=== PATIENT | female | born 1945 | race Caucasian/White ===

== ENCOUNTER → 2016-10-30 | Outpatient (CLI) | payer BC ==
[~2016-10-30] MED LIST: ATEN-173 PO; CALC600T9 PO; CLL250 PO; HYDR0.5T PO; PRED-301 PO; SYN125 PO; [UNRECOGNIZED DRUG - CODE] PO
--- NOTE | 2016-10-30 14:33 | MAMMOGRAPHY REPORT ---
BILATERAL DIGITAL SCREENING MAMMOGRAM WITH CAD: 10/30/2016 CLINICAL HISTORY: Routine screening. Patient has no complaints. TECHNIQUE: Current study was also evaluated with a Computer Aided Detection (CAD) system. Bilatera l CC and MLO views were obtained. COMPARISON: Comparison is made to exams dated: 10/28/2015 mammogram, 10/20/2013 mammogram, 10/24/2014 m ammogram, 10/19/2012 mammogram, 10/16/2011 mammogram, and 10/14/2010 mammogram - [facility]. BREAST COMPOSITION: There are scattered areas of fibroglandular density in both breasts. FINDINGS: No suspicious masses, calcifications, or areas of architectural distortion are noted in e ither breast. There has been no significant interval change compared to prior exams. Scattered bilat eral benign-appearing calcifications are not significantly changed. IMPRESSION: ACR BI-RADS CATEGORY 2: BENIGN There is no mammographic evidence of malignancy. A 1 year screening mammogram is recommended. The p atient will receive written notification of the results. Approximately 10% of breast cancers are not detected with mammography. A negative mammographic repor t should not delay biopsy if a clinically suggestive mass is present. Sabrina Edmondson M.D. /:10/30/2016 11:56:59 Equipment Maint Tech: Kassandra MOJICA(R)(M), [facility] letter sent: Normal 1/2 BI-RADS Code: ACR BI-RADS Category 2: Benign
== END | disposition home or self-care (01) ==
LOC: C.MAMM 08:42
PROVIDERS: ATTEND Internal Medicine
DX: Z12.31 Encounter for screening mammogram for malignant neoplasm of breast (principal)

== ENCOUNTER → 2016-12-01 | Outpatient (CLI) | payer BC ==
[2016-12-01 10:36] LABS: BASO % 0.5 %; BASO ABS # 0.04 K/uL (0-0.2); COMPLETE YES; EOS % 1.6 %; HEMATOCRIT 38.4 % (37-47); IG% 0.2 %; LYMPH % 39.1 %; LYMPH ABS # 3.24 K/uL (1.2-3.4); MEAN CELL VOLUME 98.7 fL (80-100); MEAN CORPUSCULAR HEMOGLOBIN 29.6 pg (25-34); MEAN CORPUSCULAR HGB CONC 29.9 g/dl (32-36); MEAN PLATELET VOLUME 11.1 fL (7.4-10.4); MONO % 8.4 %; NEUT % 50.2 %; PLATELET COUNT 344 K/uL (130-400); RED BLOOD COUNT 3.89 M/uL (4.2-5.4); WHITE BLOOD COUNT 8.29 K/uL (4.8-10.8)
[2016-12-01 10:47] LABS: URINE APPEARANCE CLEAR (CLEAR); URINE BILIRUBIN NEG (NEG); URINE COLOR YELLOW; URINE EPITHELIAL CELL AUTO 20-30 /lpf (0-5); URINE NITRITE NEG (NEG); URINE SPECIFIC GRAVITY 1.016 (1.000-1.030); UROBILINOGEN NEG (NEG)
[2016-12-01 10:54] LABS: MANUAL MICROSCOPIC REQUIRED? NO; REVIEW REQ? NO
[2016-12-01 11:02] LABS: ESTIMATED AVERAGE GLUCOSE 120 mg/dl; HA1C FLAG Normal (Normal)
[2016-12-01 11:12] LABS: BLOOD UREA NITROGEN 21 mg/dl (7-18); BUN/CREATININE RATIO 15.9 (10-20); CALCIUM 8.9 mg/dl (8.5-10.1); CARBON DIOXIDE 30 mmol/L (21-32); CHLORIDE 104 mmol/L (98-107); GLUCOSE 92 mg/dl (70-99); POTASSIUM 3.9 mmol/L (3.5-5.1); SODIUM 141 mmol/L (136-145)
[2016-12-01 11:23] LABS: CHOLESTEROL 224 mg/dl (0-200); CHOLESTEROL/HDL RATIO 2.8; HDL CHOLESTEROL 80 mg/dl; LDL CHOLESTEROL CALCULATED 121 mg/dl; TRIGLYCERIDES 116 mg/dl (0-150); VERY LOW DENSITY LIPOPROT CALC 23 mg/dl
--- NOTE | 2016-12-07 13:58 | CODING QUERY MEDICAL NECESSITY ---
SUPPORTING DIAGNOSIS NEEDED A supporting diagnosis is required for the test/procedure performed on this patient in order for us to be reimbursed by the patient's insurance. Please provide a supporting diagnosis for the following test/procedure listed below next to the test name along with your signature. *If there is no additional diagnosis for this patient that would support the following test/procedure please document that below next to the test/procedure. Test(s)/Procedure(s) that require a supporting diagnosis: DOS 12/01 * Hba1c DIAGNOSIS: Provider Signature: Date: Thank you Ewa Suh [facility] Information Management Once completed, please kindly fax back to [phone] For questions please call [phone]
== END | disposition home or self-care (01) ==
LOC: C.LABBC 08:14
PROVIDERS: ATTEND Internal Medicine
DX: I10 Essential (primary) hypertension (principal); Z13.1 Encounter for screening for diabetes mellitus

== ENCOUNTER → 2017-06-04 | Outpatient (CLI) | payer BC ==
[2017-06-04 10:15] LABS: BASO % 0.6 %; BASO ABS # 0.04 K/uL (0-0.2); COMPLETE YES; EOS % 2.2 %; HEMATOCRIT 36.3 % (37-47); IG% 0.3 %; LYMPH % 33.6 %; LYMPH ABS # 2.29 K/uL (1.2-3.4); MEAN CELL VOLUME 97.1 fL (80-100); MEAN PLATELET VOLUME 11.1 fL (7.4-10.4); MONO % 9.5 %; NEUT % 53.8 %; PLATELET COUNT 277 K/uL (130-400); RED BLOOD COUNT 3.74 M/uL (4.2-5.4); WHITE BLOOD COUNT 6.82 K/uL (4.8-10.8)
[2017-06-04 10:26] LABS: ALT/SGPT 19 U/L (12-78); AST/SGOT 20 U/L (15-37); BLOOD UREA NITROGEN 22 mg/dl (7-18); CALCIUM 8.5 mg/dl (8.5-10.1); CARBON DIOXIDE 30 mmol/L (21-32); CHLORIDE 106 mmol/L (98-107); CREATININE 1.22 mg/dl (0.60-1.20); GLUCOSE 87 mg/dl (70-99); POTASSIUM 3.8 mmol/L (3.5-5.1); SODIUM 141 mmol/L (136-145)
[2017-06-04 10:34] LABS: THYROXINE (T4) 6.4 mcg/dl (4.5-10.9)
[2017-06-04 11:25] LABS: ESTIMATED AVERAGE GLUCOSE 117 mg/dl; HA1C FLAG Normal (Normal)
[2017-06-04 18:01] LABS: URINE APPEARANCE CLEAR (CLEAR); URINE BILIRUBIN NEG (NEG); URINE COLOR YELLOW; URINE EPITHELIAL CELL AUTO 0-5 /lpf (0-5); URINE NITRITE NEG (NEG); URINE PH 5.5 (4.5-7.5); URINE SPECIFIC GRAVITY 1.017 (1.000-1.030); UROBILINOGEN NEG (NEG)
[2017-06-04 18:10] LABS: MANUAL MICROSCOPIC REQUIRED? NO; REVIEW REQ? NO
[2017-06-04 18:35] LABS: RATIO 34.4 mcg/mg (0-30.0)
--- NOTE | 2017-06-10 11:54 | CODING QUERY MEDICAL NECESSITY ---
SUPPORTING DIAGNOSIS NEEDED Dr. Stinson, A supporting diagnosis is required for the test/procedure performed on this patient in order for us to be reimbursed by the patient's insurance. Please provide a supporting diagnosis for the following test/procedure listed below next to the test name along with your signature. *If there is no additional diagnosis for this patient that would support the following test/procedure please document that below next to the test/procedure. Test(s)/Procedure(s) that require a supporting diagnosis: * [id number] GLYCATED HEMOGLOBIN DIAGNOSIS: DATE OF SERVICE: 06/04/17 Provider Signature: Date: Thank you Hebert Kent [facility] Information Management Once completed, please kindly fax back to [phone] For questions please call [phone]
== END | disposition home or self-care (01) ==
LOC: C.LAB1850 09:02
PROVIDERS: ATTEND Internal Medicine
DX: Z00.00 Encounter for general adult medical examination without abnormal findings (principal); I10 Essential (primary) hypertension; E74.39 Other disorders of intestinal carbohydrate absorption

== ENCOUNTER → 2017-09-21 | Outpatient (CLI) | payer BC ==
[2017-09-21 13:31] LABS: BASO % 0.3 %; BASO ABS # 0.03 K/uL (0-0.2); EOS % 1.4 %; EOS ABS # 0.13 K/uL (0-0.5); HEMATOCRIT 39.9 % (37-47); HEMOGLOBIN 12.5 g/dL (12.0-16.0); IG# 0.01 K/uL (0.00-0.02); LYMPH % 24.9 %; LYMPH ABS # 2.26 K/uL (1.2-3.4); MEAN CELL VOLUME 97.6 fL (80-100); MEAN CORPUSCULAR HEMOGLOBIN 30.6 pg (25-34); MEAN CORPUSCULAR HGB CONC 31.3 g/dl (32-36); MEAN PLATELET VOLUME 11.4 fL (7.4-10.4); MONO % 8.4 %; MONO ABS # 0.76 K/uL (0.11-0.59); NEUT % 64.9 %; NEUT ABS # 5.87 K/uL (1.4-6.5); PLATELET COUNT 298 K/uL (130-400); RED CELL DISTRIBUTION WIDTH SD 53.3 fL (36.4-46.3); WHITE BLOOD COUNT 9.06 K/uL (4.8-10.8)
[2017-09-21 14:20] LABS: ALBUMIN 3.9 gm/dl (3.4-5.0); ALT/SGPT 19 U/L (12-78); CREATININE 1.39 mg/dl (0.60-1.20)
[2017-09-21 14:23] LABS: ALKALINE PHOSPHATASE 51 U/L (45-117); AST/SGOT 16 U/L (15-37); TOTAL PROTEIN 7.1 gm/dl (6.4-8.2)
== END | disposition home or self-care (01) ==
LOC: C.LABBC 10:06
PROVIDERS: ATTEND Internal Medicine Rheumatology
DX: M32.9 Systemic lupus erythematosus, unspecified (principal); Z79.899 Other long term (current) drug therapy; G60.9 Hereditary and idiopathic neuropathy, unspecified

== ENCOUNTER → 2017-11-01 | Outpatient (CLI) | payer BC ==
--- NOTE | 2017-11-01 13:58 | MAMMOGRAPHY REPORT ---
BILATERAL DIGITAL SCREENING MAMMOGRAM TOMOSYNTHESIS WITH CAD: 11/01/2017 CLINICAL HISTORY: Routine screening. Patient has no complaints. TECHNIQUE: Breast tomosynthesis in addition to standard 2D mammography was performed. Current study was also evaluated with a Computer Aided Detection (CAD) system. COMPARISON: Comparison is made to exams dated: 10/30/2016 mammogram, 10/28/2015 mammogram, 10/20/2013 ma mmogram, 10/24/2014 mammogram, 10/19/2012 mammogram, and 10/16/2011 mammogram - [facility] er. BREAST COMPOSITION: There are scattered areas of fibroglandular density in both breasts. FINDINGS: No suspicious masses, calcifications, or areas of architectural distortion are noted in ei ther breast. There has been no significant interval change compared to prior exams. Scattered bilater al benign-appearing calcifications are not significantly changed. IMPRESSION: ACR BI-RADS CATEGORY 2: BENIGN There is no mammographic evidence of malignancy. A 1 year screening mammogram is recommended. The pa tient will receive written notification of the results. Approximately 10% of breast cancers are not detected with mammography. A negative mammographic report should not delay biopsy if a clinically suggestive mass is present. Sabrina Edmondson M.D. ah/:11/01/2017 11:39:05 Chain Maker Loom Control: Mary Ellen SANTIAGO)(M), [facility] letter sent: Normal 1/2 BI-RADS Code: ACR BI-RADS Category 2: Benign
== END | disposition home or self-care (01) ==
LOC: C.MAMM 08:39
PROVIDERS: ATTEND Internal Medicine
DX: Z12.31 Encounter for screening mammogram for malignant neoplasm of breast (principal)

== ENCOUNTER → 2017-12-03 | Outpatient (CLI) | payer BC ==
[2017-12-03 14:24] LABS: BLOOD UREA NITROGEN 27 mg/dl (7-18); CALCIUM 9.1 mg/dl (8.5-10.1); CARBON DIOXIDE 27 mmol/L (21-32); CREATININE 1.38 mg/dl (0.60-1.20); GLUCOSE 88 mg/dl (70-99)
[2017-12-03 14:43] LABS: CHOLESTEROL 229 mg/dl (0-200); LDL CHOLESTEROL CALCULATED 140 mg/dl; SODIUM 139 mmol/L (136-145)
== END | disposition home or self-care (01) ==
LOC: C.LABBC 09:40
PROVIDERS: ATTEND Internal Medicine
DX: R80.9 Proteinuria, unspecified (principal); N28.9 Disorder of kidney and ureter, unspecified; M32.9 Systemic lupus erythematosus, unspecified; M32.14 Glomerular disease in systemic lupus erythematosus; I10 Essential (primary) hypertension

== ENCOUNTER 2022-01-30 08:11 | Observation (INO) ==
--- NOTE | 2022-01-02 08:56 | PAT Medication Instructions ---
Medication Instructions Date of Service January 02, 2022 Home Medications Medication Instructions Recorded hydroxychloroquine 200 mg tablet 200 mg PO QAM #90 tab 05/08/20 atenolol 25 mg tablet 25 mg PO QAM #90 tab 01/27/21 mycophenolate mofetil 500 mg tablet 1,000 mg PO BID #360 tab 08/18/21 valsartan 160 1 tab PO QAM #90 tab 08/18/21 mg-hydrochlorothiazide 25 mg tablet atorvastatin 20 mg tablet 20 mg PO QPM #90 tab 10/02/21 levothyroxine 125 mcg capsule 125 mcg PO QAM #90 cap 10/02/21 calcium carb,cit ER 600 mg-vit D3 12.5 mcg (500 unit) tablet,ext.rel (Citracal- D3 Slow Release) 1 tab PO QAM cholecalciferol (vitamin D3) 25 mcg (1,000 unit) tablet (Vitamin D3) 1,000 unit PO QAM diclofenac sodium 1 % topical gel 2 g TOPICAL QID PRN prednisone 5 mg tablet 5 mg PO QAM hydroxychloroquine 200 mg tablet 200 mg PO QAM atenolol 25 mg tablet 25 mg PO QAM [facility] 1 tab PO QAM mycophenolate mofetil 500 mg tablet 1,000 mg PO BID valsartan 160 mg-hydrochlorothiazide 25 mg tablet 1 tab PO QAM atorvastatin 20 mg tablet 20 mg PO QPM levothyroxine 125 mcg capsule 125 mcg PO QAM ASK your prescriber and surgeon hydroxychloroquine 200 mg tablet 200 mg PO QAM mycophenolate mofetil 500 mg tablet 1,000 mg PO BID STOP taking 2 weeks before surgery [facility] 1 tab PO QAM STOP taking 24 hours before surgery diclofenac sodium 1 % topical gel 2 g TOPICAL QID PRN DO NOT take the morning of surgery calcium carb,cit ER 600 mg-vit D3 12.5 mcg (500 unit) tablet,ext.rel (Citracal- D3 Slow Release) 1 tab PO QAM cholecalciferol (vitamin D3) 25 mcg (1,000 unit) tablet (Vitamin D3) 1,000 unit PO QAM valsartan 160 mg-hydrochlorothiazide 25 mg tablet 1 tab PO QAM Take morning of surgery With a small sip of water, OTHERWISE NOTHING TO EAT OR DRINK AFTER MIDNIGHT: prednisone 5 mg tablet 5 mg PO QAM atenolol 25 mg tablet 25 mg PO QAM levothyroxine 125 mcg capsule 125 mcg PO QAM Take evening before surgery atorvastatin 20 mg tablet 20 mg PO QPM Other Notes If you have any questions please call us at [phone] or [phone] or [phone] or [phone]
--- NOTE | 2022-01-05 12:12 | Anesthesiology Consultation ---
Date of Service January 05, 2022 Assessment & Plan (1) Encounter for pre-operative examination: Chart Review Chart Review: Acceptable Risk for Surgery (pending preop Covid testing results ) and Patient seen in Pre Admission Testing Per PAT appt on 01/05/22, patient denies any recent travel or large group activities. No known Covid positive exposures or Covid related symptoms. No known Covid infection in the past 90 days. Pt is vaccinated for Covid (did not have antibodies with Covid vaccine #1 and 2; did hold mycophenolate for one week before Covid vaccine doses #3 and 4; may get Covid antibody infusion in the future). Preop Covid testing scheduled 01/28/22 = will await results. Educated on importance of self quarantining, social distancing and wearing mask in public for the patient one week prior to surgery and after Covid testing done Teaching & Discussion Pre-Anesthesia Teaching/Discussion Notes: Instructed NPO after midnight before surgery,except medications with 15 cc of water. Medication instructions provided according to the PAT guidelines. History Surgery Operation Date: 01/30/22 07:00 Proposed Procedures p Left Total Knee Arthroplasty - Sergio Joya MD Height/Weight Height: 5 ft 7.5 in Weight: 82.6 kg Allergies Allergy/AdvReac Type Severity Reaction Status Date / Time Iodinated Contrast Media AdvReac Mild CONTRAST Verified 10/02/21 10:58 DYE CAUSES RENAL PROBLEMS PER DR CESAR Medications Home Medications Medication Instructions Recorded Confirmed Last Taken calcium carb,cit ER 600 mg-vit D3 1 tab PO QAM 03/29/20 12/31/21 04/04/20 09:00 12.5 mcg (500 unit) tablet,ext.rel (Citracal-D3 Slow Release) cholecalciferol (vitamin D3) 25 1,000 unit PO QAM 03/29/20 12/31/21 04/04/20 09:00 mcg (1,000 unit) tablet (Vitamin D3) diclofenac sodium 1 % topical gel 2 g TOPICAL QID PRN 03/29/20 12/31/21 Unknown prednisone 5 mg tablet 5 mg PO QAM 03/29/20 12/31/21 04/04/20 09:00 hydroxychloroquine 200 mg tablet 200 mg PO QAM #90 tab 05/08/20 12/31/21 Unknown atenolol 25 mg tablet 25 mg PO QAM #90 tab 01/27/21 12/31/21 Unknown [facility] 1 tab PO QAM 07/30/21 12/31/21 Unknown mycophenolate mofetil 500 mg tablet 1,000 mg PO BID #360 tab 08/18/21 12/31/21 Unknown valsartan 160 1 tab PO QAM #90 tab 08/18/21 12/31/21 Unknown mg-hydrochlorothiazide 25 mg tablet atorvastatin 20 mg tablet 20 mg PO QPM #90 tab 10/02/21 12/31/21 Unknown levothyroxine 125 mcg capsule 125 mcg PO QAM #90 cap 10/02/21 12/31/21 Unknown Past Medical History Medical History Borderline high cholesterol History of bronchitis No recent issues History of radioactive iodine thyroid ablation Secondary to hyperthyroidism Hypertension Hypothyroidism assisted (current) use of systemic steroids Daily Prednisone 5mg (taken for lupus and RA per patient) Lupus nephritis FOLLOWS WITH NEPHROLOGY>DR. ULISES Ray per patient (on treatment x 20 years) Prediabetes Rheumatoid arthritis Follows with rheum - Dr. Helena Ray per patient Exercise / Class Metabolic Activity II 4-5 Yardwork/Stairs/Walk up hill (one flight of stairs - no chest pain or SOB ) Past Family History Family History Mother Family history of diabetes mellitus Pulmonary embolism Father Family history of diabetes mellitus COPD (chronic obstructive pulmonary disease) Acute exacerbation of emphysema Grandmother (Maternal) Family history of diabetes mellitus Grandfather (Paternal) Family history of diabetes mellitus Other No family history of adverse response to anesthesia Denies family history of Myocardial infarction Breast cancer Colorectal cancer Past Surgical History Surgical History Bartholin cyst removal on bilt sides History of anesthesia reaction WOKE UP IN MIDDLE OF BRONCHOSCOPY History of bilateral cataract extraction History of bilateral tubal ligation History of biopsy kidney History of bronchoscopy d/t bronchitis "THAT WOULD NOT CLEAR">DX WITH BAD LUNG INFECTION History of colonoscopy History of removal of cyst benign cyst removed off left lymph node History of tonsillectomy History of tooth extraction Past Anesthesia History No Hx of Anesthesia Complications (with exception to awareness with bronchoscopy ) and No Family Hx of Anesthesia Complications History of PONV No Hx of PONV and No Hx of Motion Sickness Social History Smoking Status: Never smoker Hx Alcohol Use: Yes Alcohol type: wine and hard liquor alcohol intake frequency: 0-2 drinks per day (1-3 drinks per day ) Hx Substance Use: No substance use type: does not use Review of Systems Hx of snoring - no witnessed apnea - no hx of sleep study Patient denies chest pain, shortness of breath, dyspnea on exertion, reflux, cough, wheezing, palpitations. No hx of seizures, stroke, PR. No hx of blood clots or blood transfusions Physical Exam Vital Signs VITALS BP 127/80 P 78 TEMP 97.5 SP02 96% RESP 16 Constitutional no acute distress ENMT Mouth: no TMJ clicking Thyromental Distance: > or= 3.5 Finger Breadths (3.5) Mallampati Class: II (smaller airway ) Caps and crowns to side teeth and molars Neck neck extension not limited Respiratory normal respiratory effort; no respiratory distress Auscultation: lungs clear to auscultation bilaterally; no wheezes Cardiovascular Rate/Rhythm: regular rate and regular rhythm Heart Sounds: no murmur Vessels: no carotid bruit Musculoskeletal Spine: no pain with cervical ROM (just cracking with neck extension ) Extremities: extremities normal to inspection Psychiatric Orientation: alert Lab Results Anesthesia Preop Results Results Anesthesia Widget: WBC 6.99 K/uL (4.8-10.8) 01/05/22 Hgb 11.2 g/dL (12.0-16.0) L 01/05/22 Hct 36.7 % (37-47) L 01/05/22 Plt 342 K/uL (130-400) 01/05/22 Na 137 mmol/L (136-145) 01/05/22 K 4.2 mmol/L (3.5-5.1) 01/05/22 Cl 102 mmol/L (98-107) 01/05/22 CO2 26 mmol/L (21-32) 01/05/22 BUN 31 mg/dl (6-23) H 01/05/22 Creat 1.32 mg/dl (0.6-1.2) H 01/05/22 Glucose Level 143 mg/dl (70-99(Fasting)) H 01/05/22 PT 10.4 Seconds (9.0-12.0) 01/05/22 PTT 24.7 Seconds (21.0-31.0) 01/05/22 INR 1.0 (0.9-1.1) 01/05/22 HA1c 6.2 % (4.5-5.6) H 01/05/22 Blood Type A Positive 01/05/22 Antibody Screen NEGATIVE 01/05/22 Testing Laboratory Results Anemia chronic and stable from previous Electrocardiogram Date: 01/05/22 Findings: + NSR @ (67bpm ) Normal EKG per cardio Chest X-Ray Date: 01/05/22 Findings: + NAD Cervical Spine Date: 01/05/22 FINDINGS: Bones: There is minimal, 2 to 3 mm degenerative anterolisthesis of C3 on C4, C4 and C5 and C5 on C6. This increases by 1 to 2 mm with flexion and reduces anatomic alignment with extension. There is no evidence for fracture or malalignment. The heights of the vertebral bodies are maintained. There are no lytic or blastic lesions present. Disc spaces: There is moderate to marked disc space narrowing from C3-4 through C7. Apophyseal joints: Degenerative apophyseal joint disease is seen bilaterally. Soft tissues: The paraspinal soft tissues are within normal limits. IMPRESSION: 1. No acute abnormality. 2. Minimal degenerative anterolisthesis as described above which slightly increases with flexion and reduces to anatomic with extension. (Discussed with Dr. Mora- pt is scheduled for TKA- most likely will get SAB; pt asymptomatic. Can proceed without further work up. Will send to PCP for continuity of care)
--- NOTE | 2022-01-24 10:56 | History and Physical Report ---
DATE OF ADMISSION: 01/30/2022. CHIEF COMPLAINT: Persistent bilateral knee pain and discomfort, left side greater than right. HISTORY OF PRESENT ILLNESS: The patient is a 76-year-old female with underlying rheumatoid disease a nd lupus who presents now for surgical treatment of her left knee: She has a long history of bilater al knee pain and discomfort followed by several rheumatologists. She was initially treated by Dr. Steven boland and then more recently by Dr. Moser. She has been through extensive medical management, which has become less successful over time. She describes global pain in both knees. Injections gave her a little bit of relief, but nothing long lasting. Her has been through some spine surgery a nd she was waiting until she got through that to proceed with knee replacement. She would like to cohen ve her both knees fixed. Left knee is worse than right, and wants to start on that one. She limps m ore as the day goes on. PAST MEDICAL HISTORY: 1. Rheumatoid disease. 2. Lupus. 3. Hypertension. 4. Hypothyroidism. PAST SURGICAL HISTORY: Includes. 1. Tonsillectomy 2. Tubal ligation. 3. Kidney biopsy. 4. Lung biopsy. 5. Oral surgery. 6. Bartholin cyst removal. ALLERGIES: None. CURRENT MEDICATIONS: Include. 1. Atenolol. 2. Calcium carbonate. 3. Vitamin D3. 4. Topical diclofenac. 5. Hydroxychloroquine. 6. Levothyroxine. 7. [facility]. 8. Prednisone. 9. Valsartan/hydrochlorothiazide. SOCIAL HISTORY: A 76-year-old female. She is . She does not smoke. Several drinks per week . FAMILY HISTORY: Noncontributory. REVIEW OF SYSTEMS: Significant for rheumatoid disease/lupus followed by sales agent pest control service. No chest pa in or shortness of breath. No history of DVT or PE. No known bleeding problems. PHYSICAL EXAMINATION: GENERAL: Shows a pleasant middle-aged female. Looks to be in pretty good health. HEENT: Benign. NECK: Supple. No lymphadenopathy. LUNGS: Clear to auscultation. HEART: Regular rate and rhythm. ABDOMEN: Soft, nontender, nondistended. EXTREMITIES: Grossly neurovascularly intact except as follows. Examination of the left knee reveals the patient walks independently. Examination of the left knee r eveals varus alignment to the knee, which is increased with weightbearing. She is tender over the me dial joint line. Small knee effusion. 10 to 15-degree flexion contracture and bends to about 110 de grees. No pain with hip motion. Examination of the right knee reveals slight varus alignment. Tender with medial joint line. Small knee effusion. Range of motion 5-120. No instability. X-RAYS: X-rays of both knees reveal advanced bilateral knee degenerative joint disease. The left si de a bit worse than right. She has tricompartment disease. She has complete loss of the medial join t space. Diffuse osteopenia. ASSESSMENT: A 76-year-old female with longstanding underlying rheumatoid disease and lupus with bila teral knee arthritis. The left side is worse than the right. She has failed conservative treatment and would like to have her knees fixed. PLAN: We will plan to take her to the operating room and do left total knee replacement. The risks and benefits of this procedure were explained to the patient and include but not limited to DVT, PE, , infection, neurological injury, vascular injury, bleeding problem, pain, limited range of sincere on, stiffness, failure to relieve symptoms, incomplete relief of symptoms, need for further surgery i n the future, etc. The patient understands and desires to proceed. Informed consent was obtained. Due to her autoimmune disease we will likely put some vancomycin in the cement. She is planning to b e discharged to home. She will be kept overnight for at least 1 night stay. We will likely give her a steroid burst as she is on chronic steroids. She knows to take the atenolol the morning of radha moya. Job ID: [id number]
[~2022-01-30 08:11] MED LIST changes: +ACETAMINOPHEN 500 MG TAB PO SCH; -ATEN-173 PO; +BUPIVACAINE 0.5 % 5 MG/1 ML PF 10ML VIAL ONE; +BUPIVACAINE LIPOSOME/PF 266 MG, BUPIVACAINE/EPINEPHRINE 50 ML, SODIUM CHLORIDE 0.9% 30 ... INFIL SCH; -CALC600T9 PO; -CLL250 PO; +EPINEPHrine INJ 1 MG/ML AMP ONE; +FAMOTIDINE 20 MG TAB PO SCH; +GABAPENTIN 300 MG CAP PO SCH; -HYDR0.5T PO; +LR 15ML/HR IV SCH; +LR 500ML BOLUS IV SCH; +LR 60ML/HR IV SCH; +METOCLOPRAMIDE HCL 10 MG TABLET PO SCH; -PRED-301 PO; +ROPIVACAINE 0.5% 5 MG/ML 30 ML VIAL ONE; -SYN125 PO; +TRANEXAMIC ACID 1,000 MG **IV Intra-op IV SCH; -[UNRECOGNIZED DRUG - CODE] PO; +ceFAZolin 2000MG 2,000 MG/15 ML SYR IV SCH
--- NOTE | 2022-01-30 08:56 | History & Physical Bridge Note ---
Date of Service January 30, 2022 History & Physical Bridge Note I have examined the patient, reviewed the History & Physical and in the interval since the performance of the History & Physical I have noted the following changes of clinical significance: no changes noted
[2022-01-30] MEDS ORDERED: ePHEDrine sulfate 50 MG/ML AMP IV PRN (10:12)
[2022-01-30] MEDS ORDERED: ONDANSETRON INJ 2 MG/ML 2 ML VIAL IV PRN ×2 (10:12→16:31)
[2022-01-30] MEDS ORDERED: ATROPINE SULFATE 0.1 MG/ML 10ML SYR IV PRN (10:12)
[2022-01-30] MEDS ORDERED: fentaNYL citrate 100 MCG/2 ML VIAL IV PRN (10:12)
[2022-01-30] MEDS ORDERED: fentaNYL citrate 100 MCG/2 ML VIAL ONE (10:17)
[2022-01-30] MEDS ORDERED: MIDAZOLAM HCL 1 MG/ML 2ML VIAL ONE ×2 (10:17→11:35)
[2022-01-30] MEDS ORDERED: BUPIVACAINE LIPOSOME 1.3% 266 MG/20 ML VIAL ONE (10:52)
[2022-01-30] MEDS ORDERED: BUPIVACAINE 0.25% 30 ML VIAL ONE (10:52)
[2022-01-30] MEDS ORDERED: SODIUM CHLORIDE 0.9% PF 50 ML VIAL ONE (10:52)
[2022-01-30] MEDS ORDERED: EPINEPHrine INJ 1 MG/ML AMP ONE (10:52)
[2022-01-30] MEDS ORDERED: VANCOMYCIN HCL 1000MG/20ML VIAL ONE (11:26)
[2022-01-30] MEDS ORDERED: PROPOFOL IV EMULSION 10 MG/ML 20 ML VIAL IV ONE (12:03)
[2022-01-30] MEDS ORDERED: HYDROCORTISONE SOD SUCCINATE 100 MG/2 ML VIAL ONE (12:04)
--- NOTE | 2022-01-30 13:09 | Operative Report ---
PG Post Operative Report Pre & Post Diagnosis Operation Date: 01/30/22 10:40 Pre-Op Diagnosis: Left Knee Advanced Degenerative Joint Disease Post-Op Diagnosis: Left Knee Advanced Degenerative Joint Disease I identified the patient and participated in the time-out.: Yes Procedure Operation Date: 01/30/22 10:40 Actual Procedures p Left Total Knee Arthroplasty(Left) - Sergio Joya MD Surgeon Sergio Joya MD General Foreman Enoch Azul PA-C Estimated Blood Loss 50 Findings Consistent with Post-Op Diagnosis Operative findings were advanced left knee tricompartment DJD with extensive grade 4 [id number] disease in all 3 compartments. There she had a varus deformity to her knee. About a 10 to 15 degree flexion contracture. Diffuse osteopenia. Specimens Left knee sent for pathology. Anesthesia Type Spinal MAC Complications none Disposition Accompanied Patient To Recovery: No Indications Patient is a 76-year-old female with underlying rheumatoid disease as well as lupus is several year history of increasing left knee pain discomfort unresponsive conservative care. X-rays show advanced tricompartment DJD. She elected proceed with surgical treatment. Description of Procedure Operative implants consist of: 1 Biomet Vanguard size 65 left posterior stabilized femoral component. 2. Biomet size 67 tibial tray. 3. 10 mm posterior stabilized polyethylene insert. 4. 31 x 8 all Paller patella. The patient was taken the operating, identified, placed on the operating table supine position protectors were properly padded. IV antibiotics tried by anesthesia team. A spinal anesthetic and abductor canal block had provided holding area. Cartagena catheter was placed in sterile fashion. The patient did receive stress dose hydrocortisone a preoperatively in the operating room. A left thigh tent was then placed in the left lower extremities then prepped and draped in usual sterile fashion. The left leg was elevated exsanguinated with use of an Esmarch interspaced at 300 mmHg. An anterior approach left knee was then performed to longitudinal incision centered over the patella. Sharp dissection was carried through subcutaneous tissue down to the extensor mechanism. A medial parapatellar arthrotomy incision was made. Some subperiosteal dissection was carried out medially. The fat pad was resected from Neath patella tendon. Lateral p atellofemoral ligament was released. Patella subluxated laterally and the knee was flexed. The osteophytes were taken off distal femur. The ACL and PCL were then released from distal femur and the tibia subluxated anteriorly. The external tibial alignment jig was then placed the interface the tibia and adjusted 14 mm medially. Proximal tibial cut was made remove about a millimeter bone at most from the most deficient aspect medial tibial plateau. Some osteophytes taken off medial and posterior medially. Tibia sized to a size 67. Attention drawn the femur. The distal femur then with a sharp drill. Intramedullary canal was suction. A left 5 degree valgus cutting guide was placed. The distal femoral cutting block was pinned in place. Distal femoral cut was made to take an additional 3 mm bone off distal femur. The femur was then sized to a size 65. The AP cutting block was pinned parallel to the epicondylar axis which was 5 degrees of external rotation. Anterior cut, anterior chamfer, posterior cut, posterior chamfer cuts were made. The box cutting guide was placed in just slight lateral box cut was made. The knee was flexed. The remnants of the medial and lateral menisci were excised. The osteophytes taken off the posterior aspect the femur. Trial femoral component was placed. The tibial tray was pinned in maximum external rotation and the drill and stem punch were used to create defect in proximal tibia for the tibial tray. The knee was then trialed and 10 mm insert fit most appropriately. Attention drawn the patella. The patella was cleaned of all soft tissues. Patella thickness measured 20 3 mm in thickness. Was cut down to 13. Was sized to a size 31 patella. The lug holes were drilled for the 31 patella. The lateral osteophyte was removed. Patella button was placed. Knee was taken through range of motion patella tracked nicely with no thumbs test. Attention drawn to placing permanent components. All trial components were removed. Bone plug was placed in the distal femur limit blood loss. Double batch Palacos G cement was mixed. I did add an additional gram of vancomycin to her cemented due to her immunocompromise status with her underlying rheumatoid and lupus disease. A Biomet Vanguard size 65 left posterior stabilized femoral component, size 67 tibial tray, a 10 mm posterior stabilized polyethylene insert, and a 31 x 8 all Paller patella then cemented in place. Knee was brought out into full extension total cement hardened. Final cement check was then performed. The pericapsular tissues were then injected with total 100 cc of combination of 20 cc of Exparel, 30 cc normal saline, 50 cc of quarter percent Marcaine with epinephrine. Patient did receive 1 g tranexamic acid. The tourniquet was then let down for final time of 57 minutes. Hemostasis assured use electrocautery. Extensor mechanism closed with combination 1 PDS suture and 1 Vicryl suture in [id number] fashion. Extensor mechanism checked found to be intact the subcutaneous tissue was were then closed with 2-0 Dexon suture in a buried interrupted fashion. Skin was closed skin el. Leg was then cleaned and dried and a sterile dressing was Xeroform, 4 x 4's, sterile cast padding, Matias bandage were applied. Patient then transferred to the recovery room in stable condition. The patient tolerated the procedure well and there were no complications. Enoch Azul, my physician senior administrative assistant, was present for the entire procedure. His assistance was essential and required for appropriate patient positioning, prepping and draping, surgical exposure, performing the technical details of the operation, placement the implants, closure of the wound, and placement of the sterile bandage. I attest to the content of the Intraoperative Record and any orders documented therein. Any exceptions are noted below.
--- NOTE | 2022-01-30 14:30 | XRay Report ---
XR knee LT 1 or 2V routine CLINICAL HISTORY: Surgical Post Op TECHNIQUE: 2 views of the left knee were obtained. Comparison: Comparison is made to knee radiographs 03/27/2021 FINDINGS: Patient is status post total knee arthroplasty with expected postsurgical changes including soft tiss ue swelling, subcutaneous emphysema, and surgical staple placement. No periarticular lucency or hardw are fracture is seen. IMPRESSION: Expected postoperative appearance status post placement of total knee arthroplasty. ACT 112: Negative or not required by law. Electronically signed by: Dilshad Scott M.D. 01/30/2022 2:27 PM
[2022-01-30] MEDS ORDERED: NALOXONE HCL 0.4 MG/1 ML VIAL/CARP IV PRN (16:31)
[2022-01-30] MEDS ORDERED: bisacodyL 10 MG SUPP PR PRN (16:31)
[2022-01-30] MEDS ORDERED: ALUMINUM/MAGNESIUM SUSP 30 ML UDC PO PRN (16:31)
[2022-01-30] MEDS ORDERED: MAGNESIUM HYDROXIDE SUSP 30 ML UDC PO PRN (16:31)
[2022-01-30] MEDS ORDERED: METOCLOPRAMIDE HCL INJ 5 MG/ML 2 ML VIAL IV PRN (16:31)
[2022-01-30] MEDS ORDERED: HYDROmorphone INJ 0.5 MG/0.5 ML SYR IV PRN (16:31)
--- NOTE | 2022-01-30 16:37 | Anesthesiology Progress Note ---
Date of Service January 30, 2022 Anesthesia Post Procedure Vital Signs Vital Signs: Temp Pulse Pulse Resp BP Pulse Ox 01/30/22 15:50 36.4 C L 85 23 123/70 100 01/30/22 15:40 36.4 C L 100 H 23 114/66 97 01/30/22 15:30 36.4 C L 94 H 23 116/64 98 01/30/22 15:20 36.4 C L 86 23 118/66 100 01/30/22 15:10 36.4 C L 78 19 113/64 100 01/30/22 15:00 36.4 C L 62 18 124/75 96 01/30/22 14:50 36.4 C L 76 14 125/73 98 01/30/22 14:40 36.4 C L 76 14 125/73 98 01/30/22 14:30 36.4 C L 54 L 13 125/66 99 01/30/22 14:20 36.4 C L 56 L 18 120/67 98 01/30/22 14:10 36.4 C L 59 L 15 120/82 100 01/30/22 14:00 36.4 C L 59 L 17 125/69 99 01/30/22 13:50 70 18 132/61 100 01/30/22 13:40 59 L 17 125/69 99 01/30/22 13:30 56 L 13 122/70 100 01/30/22 13:20 65 16 128/71 100 01/30/22 13:10 36.0 C L 78 15 128/73 100 01/30/22 13:04 36.0 C L 79 20 123/76 100 01/30/22 08:34 36.9 C 74 20 159/95 H 97 Transfer of Care Handoff Completed per policy Notes Mental Status: alert / awake / arousable and participated in evaluation Patient Amnestic to Procedure: Yes Nausea / Vomiting: adequately controlled Pain: adequately controlled Airway Patency, RR, SpO2: stable & adequate BP & HR: stable & adequate Hydration State: stable & adequate Neuraxial Anesthesia: was administered and sensory block is resolving Anesthetic Complications: no major complications apparent and Pt Satisfied with anesthetic care
[2022-01-30] MEDS: SODIUM CHLORIDE 0.9% 1000ML 1,000 ML IV SCH (18:42)
[2022-01-30] MEDS ORDERED: TRANEXAMIC ACID / 0.7% NACL 1,000 MG/100 ML BAG IV SCH (19:00)
[2022-01-30] MEDS: ceFAZolin 2000MG 2,000 MG/15 ML SYR IV SCH (20:06)
[2022-01-30] MEDS: SENNA 8.6 MG TAB PO SCH (20:06)
[2022-01-30] MEDS: ATORVASTATIN 20 MG TAB PO SCH (20:07)
[2022-01-30] MEDS: ACETAMINOPHEN 500 MG TAB PO SCH ×2 (20:07→22:48)
[2022-01-30] MEDS: ASCORBIC ACID 500 MG TAB PO SCH (20:08)
[2022-01-30] MEDS: MYCOPHENOLATE MOFETIL 250 MG CAP PO SCH (20:09)
[2022-01-30] MEDS: DOCUSATE SODIUM 100 MG CAP PO SCH (21:04)
[2022-01-30] MEDS: ASPIRIN 81 MG ECTAB PO SCH (21:04)
[2022-01-30] MEDS: oxyCODONE HCL IR 5 MG TAB (IMMEDIATE RELEASE) PO PRN (23:45)
[2022-01-31] MEDS: ceFAZolin 2000MG 2,000 MG/15 ML SYR IV SCH (02:52)
[2022-01-31] MEDS: SODIUM CHLORIDE 0.9% 1000ML 1,000 ML IV SCH (05:23)
[2022-01-31] MEDS: oxyCODONE HCL IR 5 MG TAB (IMMEDIATE RELEASE) PO PRN ×3 (05:27→23:18)
[2022-01-31] MEDS: ACETAMINOPHEN 500 MG TAB PO SCH ×3 (05:28→21:26)
[2022-01-31] MEDS: LEVOTHYROXINE SODIUM 137 MCG TABLET PO SCH (05:28)
[2022-01-31 07:20] LABS: Hematocrit (blood only) 29.9 % (37-47); Hemoglobin 9.2 g/dL (12.0-16.0); Mean Corpuscular Hemoglobin 30.9 pg (25-34); Mean Corpuscular Hgb Conc 30.8 g/dL (32-36); Mean Corpuscular Volume 100.3 fL (80-100); Mean Platelet Volume 11.1 fL (7.4-10.4); Platelet Count 254 K/uL (130-400); RDW Coefficient of Variation 16.1 % (11.5-14.5); Red Blood Count 2.98 M/uL (4.2-5.4); White Blood Count 11.02 K/uL (4.8-10.8)
[2022-01-31 07:44] LABS: BUN Creatinine Ratio 17.8 (10-20); Calcium 7.6 mg/dl (8.5-10.1); Creatinine Clr Calc Pharmacy 42.9 ml/min; Est GFR (African American) 47.2 ml/min; Est GFR (Non-African American) 40.8 ml/min; Potassium 3.6 mmol/L (3.5-5.1)
[2022-01-31] MEDS ORDERED: dexAMETHasone 10 MG in SYRINGE 0 ML IV SCH (08:00)
[2022-01-31] MEDS: ATENOLOL 25 MG TABLET PO SCH (08:35)
[2022-01-31] MEDS: CHOLECALCIFEROL 1,000 UNITS 25 MCG TAB PO SCH (08:35)
[2022-01-31] MEDS: predniSONE 5 MG TAB PO SCH (08:35)
[2022-01-31] MEDS: HYDROXYCHLOROQUINE SULFATE 200 MG TAB PO SCH (08:35)
[2022-01-31] MEDS: ASPIRIN 81 MG ECTAB PO SCH ×2 (08:35→21:26)
[2022-01-31] MEDS: DOCUSATE SODIUM 100 MG CAP PO SCH ×2 (08:35→21:26)
[2022-01-31] MEDS: CALCIUM 600MG + VIT D 400 IU TAB PO SCH (08:35)
[2022-01-31] MEDS: hydroCHLOROthiazide 25 MG TAB PO SCH (08:35)
[2022-01-31] MEDS: DOCUSATE SODIUM/SENNA 50/8.6MG TAB PO SCH (08:35)
[2022-01-31] MEDS: VALSARTAN 80 MG TAB PO SCH (08:35)
[2022-01-31] MEDS: ASCORBIC ACID 500 MG TAB PO SCH ×2 (08:35→16:52)
[2022-01-31] MEDS: MULTIVITAMIN TAB PO SCH (08:35)
[2022-01-31] MEDS: MYCOPHENOLATE MOFETIL 250 MG CAP PO SCH ×2 (08:36→21:27)
[2022-01-31] MEDS ORDERED: MACUHEALTH PO SCH (09:00)
--- NOTE | 2022-01-31 09:23 | Progress Notes ---
DATE OF NOTE: 01/31/2022. SUBJECTIVE: A 76-year-old female postoperative day 1 from a left knee replacement. She is doing pre tty well. Pain has been controlled. No chest pain or shortness of breath. Not feeling dizzy or lig htheaded. OBJECTIVE: VITAL SIGNS: Temperature 36.8. Vital signs are stable. GENERAL: Shows a pleasant middle-aged female. She is lying in bed, looks comfortable. LUNGS: Clear to auscultation. HEART: Regular rate and rhythm. ABDOMEN: Soft, nontender, nondistended. EXTREMITIES: Grossly neurovascularly intact except as follows. Examination of the left leg reveals the dressing to be clean, dry and intact. Leg is well aligned. She can dorsiflex and plantarflex her foot appropriately. She is neurologically intact. LABORATORY: Hemoglobin 9.2. Hematocrit 29.9. Electrolytes are stable. Creatinine stable. ASSESSMENT: A 76-year-old female postoperative day 1 from a left knee replacement, doing reasonably well. Pain seems to be controlled. She is neurologically intact. PLAN: 1. DVT prophylaxis include thigh-high TEDs, SCDs, and aspirin twice a day. 2. PT, OT, weightbear as tolerated. Left total knee protocol. 3. Pain control, doing well with current pain regimen. 4. Disposition: Plan to discharge to home with some home health once adequately recovered and medic ally stable. Job ID: [id number]
[2022-01-31] MEDS: SENNA 8.6 MG TAB PO SCH (21:26)
[2022-01-31] MEDS: ATORVASTATIN 20 MG TAB PO SCH (21:26)
[2022-02-01] MEDS: LEVOTHYROXINE SODIUM 137 MCG TABLET PO SCH (06:09)
[2022-02-01] MEDS: ACETAMINOPHEN 500 MG TAB PO SCH (06:09)
[2022-02-01] MEDS: HYDROXYCHLOROQUINE SULFATE 200 MG TAB PO SCH (08:03)
[2022-02-01] MEDS: ATENOLOL 25 MG TABLET PO SCH (08:03)
[2022-02-01] MEDS: CALCIUM 600MG + VIT D 400 IU TAB PO SCH (08:03)
[2022-02-01] MEDS: predniSONE 5 MG TAB PO SCH (08:03)
[2022-02-01] MEDS: DOCUSATE SODIUM/SENNA 50/8.6MG TAB PO SCH (08:03)
[2022-02-01] MEDS: ASCORBIC ACID 500 MG TAB PO SCH (08:03)
[2022-02-01] MEDS: MULTIVITAMIN TAB PO SCH (08:03)
[2022-02-01] MEDS: DOCUSATE SODIUM 100 MG CAP PO SCH (08:03)
[2022-02-01] MEDS: CHOLECALCIFEROL 1,000 UNITS 25 MCG TAB PO SCH (08:03)
[2022-02-01] MEDS: hydroCHLOROthiazide 25 MG TAB PO SCH (08:03)
[2022-02-01] MEDS: MYCOPHENOLATE MOFETIL 250 MG CAP PO SCH (08:04)
[2022-02-01] MEDS: VALSARTAN 80 MG TAB PO SCH (08:04)
[2022-02-01] MEDS: ASPIRIN 81 MG ECTAB PO SCH (09:34)
--- NOTE | 2022-02-01 09:57 | Progress Notes ---
DATE OF NOTE: 02/01/2022. SUBJECTIVE: A 76-year-old female postop day 2 from a left knee replacement. Doing quite a bit better this morning. She just feels more confident and getting around. Pain has been controlled. No ches t pain or shortness of breath. Not feeling dizzy or lightheaded. OBJECTIVE: VITAL SIGNS: Temperature 36.9. Vital signs are stable. GENERAL: Reveals a pleasant, elderly female. Sitting up in bed and eating breakfast. Looks comfort able. EXTREMITIES: Examination of the left leg reveals the dressing to be clean, dry and intact. Leg is w ell aligned. She can dorsiflex and plantarflex her foot appropriately. She is neurologically intact . ASSESSMENT: A 76-year-old female with underlying rheumatoid disease and lupus postop day 2 from a le ft knee replacement, doing pretty well. Pain is more controlled today. She is hoping to go home. PLAN: 1. DVT prophylaxis include thigh-high TEDs, SCDs, and aspirin twice a day. 2. PT, OT, weightbear as tolerated. Left total knee protocol. 3. Pain control, doing well with current pain regimen. 4. Disposition: Plan to discharge to home with home health after therapy this morning. Job ID: [id number]
== END 2022-02-01 13:55 | disposition home health service (06) ==
LOC: ASU 08:11 → PACUINP 08:11 → 3E 19:01

== ENCOUNTER 2023-01-15 08:04 | Observation (INO) ==
--- NOTE | 2023-01-05 10:54 | Anesthesiology Consultation ---
Date of Service January 05, 2023 Assessment & Plan (1) Encounter for pre-operative examination: Plan - chronic steroid use. - L TKA 01/30/22 L3-L4 2 attempts + PNB. - COVID screening: Per assessment director on 01/05/2023: Travel screen-returned from travel [id number] [place], no known COVID-19 positive contacts or current COVID-19 related symptoms in past 2 weeks. To surgeon's discretion if preop COVID testing is needed. Outpatient joint assessment: Patient is currently scheduled for inpatient pathway. If re-evaluated pending system levels during current pandemic/surgeon requests outpatient pathway, patient is not recommended candidate for outpatient joint program from anesthesia standpoint. Chart Review Chart Review: Acceptable Risk for Surgery and Patient NOT seen in Pre Admission Testing History Surgery Operation Date: 01/15/23 07:00 Proposed Procedures p Right Total Knee Arthroplasty - Sergio Joya MD Height/Weight Height: 5 ft 7.5 in Weight: 80.739 kg Allergies Allergy/AdvReac Type Severity Reaction Status Date / Time Iodinated Contrast Media AdvReac Intermediate CONTRAST Verified 01/05/23 10:03 DYE CAUSES RENAL PROBLEMS PER DR CESAR Medications Home Medications Medication Instructions Recorded Confirmed Last Taken calcium carb,cit ER 600 mg-vit D3 1 tab PO QAM 03/29/20 01/05/23 01/28/22 08:00 12.5 mcg (500 unit) tablet,ext.rel (Citracal-D3 Slow Release) cholecalciferol (vitamin D3) 25 1,000 unit PO QAM 03/29/20 01/05/23 01/28/22 08:00 mcg (1,000 unit) tablet (Vitamin D3) diclofenac sodium 1 % topical gel 2 g topical QID PRN Pain 03/29/20 01/05/23 Unknown prednisone 5 mg tablet 5 mg PO QAM 03/29/20 01/05/23 01/30/22 07:00 hydroxychloroquine 200 mg tablet 200 mg PO QAM #90 tabs 05/08/20 01/05/23 01/28/22 08:00 Macuhealth 1 tab PO QAM 07/30/21 01/05/23 01/23/22 08:00 levothyroxine 137 mcg capsule 137 mcg PO QAM #90 caps 01/29/22 01/05/2322 04:00 amoxicillin 500 mg capsule 2,000 mg PO ONCE #10 caps 04/01/22 01/05/23 Unknown atenolol 25 mg tablet 25 mg PO QAM #90 tabs 04/07/22 01/05/23 Unknown risedronate 35 mg tablet (Actonel) 35 mg PO .Weekly #12 tabs 04/13/22 01/05/23 Unknown calcitriol 0.25 mcg capsule 0.25 mcg PO .COMPLEX #36 caps 08/04/22 01/05/23 Unknown valsartan 160 1 tab PO QAM #90 tabs 09/28/22 01/05/23 Unknown mg-hydrochlorothiazide 25 mg tablet atorvastatin 20 mg tablet 20 mg PO QPM #90 tabs 11/12/22 01/05/23 Unknown mycophenolate mofetil 500 mg tablet 1,000 mg PO BID #360 tabs 11/17/22 01/05/23 Unknown Past Medical History Medical History Borderline high cholesterol History of bronchitis No recent issues History of radioactive iodine thyroid ablation Secondary to hyperthyroidism Hypertension Hypothyroidism senior living (current) use of systemic steroids Daily Prednisone 5mg (taken for lupus and RA per patient) Lupus nephritis FOLLOWS WITH NEPHROLOGY>DR. ULISES Ray per patient (on treatment x 20 years) Prediabetes Renal insufficiency, mild Rheumatoid arthritis Follows with rheum - Dr. Helena Ray per patient Systemic lupus erythematosus Past Family History Family History Mother Family history of diabetes mellitus Pulmonary embolism Father Family history of diabetes mellitus COPD (chronic obstructive pulmonary disease) Acute exacerbation of emphysema Grandmother (Maternal) Family history of diabetes mellitus Grandfather (Paternal) Family history of diabetes mellitus Other No family history of adverse response to anesthesia Denies family history of Myocardial infarction Breast cancer Colorectal cancer Past Surgical History Surgical History Bartholin cyst removal on bilt sides History of anesthesia reaction WOKE UP IN MIDDLE OF BRONCHOSCOPY History of bilateral cataract extraction History of bilateral tubal ligation History of biopsy kidney History of bronchoscopy d/t bronchitis "THAT WOULD NOT CLEAR">DX WITH BAD LUNG INFECTION History of colonoscopy History of removal of cyst benign cyst removed off left lymph node History of tonsillectomy History of tooth extraction Status post total left knee replacement 01/30/22 @ [facility] Social History Smoking Status: Never smoker Do You Dip or Chew Tobacco: No Hx Alcohol Use: Yes Alcohol type: wine alcohol intake frequency: 0-2 drinks per day Hx Substance Use: No substance use type: does not use Lab Results Anesthesia Preop Results Results Anesthesia Widget: WBC 9.13 K/ul (4.8-10.8) 12/17/22 Hgb 11.8 g/dl (12.0-16.0) L 12/17/22 Hct 38.1 % (37.0-47.0) 12/17/22 Plt 306 K/uL (130-400) 12/17/22 Na 142 mmol/L (136-145) 12/17/22 K 4.0 mmol/L (3.5-5.1) 12/17/22 Cl 104 mmol/L (98-107) 12/17/22 CO2 30 mmol/L (21-32) 12/17/22 BUN 34 mg/dl (6-23) H 12/17/22 Creat 1.45 mg/dl (0.6-1.2) H 12/17/22 Glucose Level 93 mg/dl (70-99(Fasting)) 12/17/22 PT 10.6 Seconds (9.0-12.0) 12/17/22 PTT 24.4 Seconds (21.0-31.0) 12/17/22 INR 1.0 (0.9-1.1) 12/17/22 Blood Type A Positive 12/17/22 Antibody Screen NEGATIVE 12/17/22 Testing Electrocardiogram Date: 12/17/22 NSR, rate 61 bpm Chest X-Ray Date: 12/17/22 No acute process Cervical Spine Date: 01/05/22 1. No acute abnormality. 2. Minimal degenerative anterolisthesis as described above which slightly increases with flexion and reduces to anatomic with extension.
--- NOTE | 2023-01-09 10:12 | History and Physical Report ---
CHIEF COMPLAINT: Persistent right knee pain and discomfort. HISTORY OF PRESENT ILLNESS: A 77-year-old female with underlying rheumatoid disease, who now present s for surgical treatment of her right knee. She has got a long history of knee problems. Had her le ft knee replaced about 11 months ago. She has done well from this. She continues to be limited by r ight knee pain. She has been through extensive conservative treatment over the years by Dr. Winter and then more recently by Dr. Moser, the operating room registered nurse in [facility]. Injection provided minimal re lief. She is limited by her knee pain. Right knee limits her. She is happy with the left knee. PAST MEDICAL HISTORY: 1. Rheumatoid arthritis. 2. Lupus. 3. Hypertension. 4. Hypothyroidism. PREVIOUS SURGICAL HISTORY: Includes: 1. Left knee replacement done on 01/30/2002. 2. Tonsillectomy 3. Tubal ligation. 4. Kidney biopsy. 5. Lung biopsy. 6. Oral surgery. 7. Bartholin cyst removal. ALLERGIES: NONE. CURRENT MEDICATIONS: Include: 1. Atenolol. 2. Calcium ____ . 3. Vitamin D3. 4. Diclofenac. 5. Hydroxychloroquine. 6. Levothyroxine. 7. [facility]Health. 8. Prednisone. 9. Valsartan. 10. Hydrochlorothiazide. SOCIAL HISTORY: A 77-year-old female. She is . Does not smoke. Ten drinks per week. FAMILY HISTORY: Noncontributory. REVIEW OF SYSTEMS: Significant for rheumatoid arthritis as well as lupus disease. Denies any chest pain or shortness of breath. No history of DVT or PE. No known bleeding disorders. PHYSICAL EXAM: GENERAL: Shows a pleasant, healthy appearing female. HEENT: Benign. NECK: Supple. No lymphadenopathy. LUNGS: Clear to auscultation. HEART: Regular rate and rhythm. ABDOMEN: Soft, nontender, nondistended. EXTREMITIES: Grossly neurovascularly intact except as follows. Examination of the right knee reveals slight varus alignment to her knee. She is tender over the med ial joint line. Small knee effusion. Range of motion about 10 degrees short of full extension to 11 5 degrees of flexion. There is no instability. No pain with hip motion. Examination of the left kn ee reveals a well-healed incision. Anatomic alignment. Minimal swelling. Range of motion is 0 to 1 20. X-RAYS: X-rays of the right knee reviewed. It shows advanced right knee DJD. She has got complete loss of medial joint space. She has subchondral sclerosis. Osteophytes primarily medially. The lef t knee replacement looks to be in good position without problems. ASSESSMENT: A 77-year-old female with underlying rheumatoid disease and lupus, now almost a year out from left knee replacement with right knee pain and DJD. She has failed conservative treatment. Sh maurice is happy with the left knee and would like to have her right knee replaced. PLAN: We will take her to the operating room and do right total knee replacement. The risks and gregory efits of this procedure were explained to the patient and include but not limited to DVT, PE, , infection, neurological injury, vascular injury, bleeding problem, pain, limited range of motion, sti ffness, failure to relieve her symptoms, incomplete relief of symptoms, etc. The patient understands and desires to proceed. As far as medicine she is going to hold her immunosuppressants 2 weeks befo re and restart 2 weeks postop. As far as discharge, she is planning to be discharged to home with her 's assistance as well a s the [facility] program. Job ID: [id number]
[~2023-01-15 08:04] MED LIST changes: -BUPIVACAINE LIPOSOME/PF 266 MG, BUPIVACAINE/EPINEPHRINE 50 ML, SODIUM CHLORIDE 0.9% 30 ... INFIL SCH; +BUPIVACAINE LIPOSOME/PF 266 MG, BUPIVACAINE/EPINEPHRINE 50 ML, SODIUM CHLORIDE 0.9% PF ... INFIL SCH; +CeleBREX 200 MG CAP PO SCH; -GABAPENTIN 300 MG CAP PO SCH; -LR 15ML/HR IV SCH; -LR 500ML BOLUS IV SCH; +LR 500ML BOLUS, THEN 15ML/HR IV SCH; +dexAMETHasone**PF** 10 MG/ML VIAL IV SCH
--- NOTE | 2023-01-15 09:00 | History & Physical Bridge Note ---
Date of Service January 15, 2023 History & Physical Bridge Note I have examined the patient, reviewed the History & Physical and in the interval since the performance of the History & Physical I have noted the following changes of clinical significance: no changes noted
[2023-01-15] MEDS: LR 500ML BOLUS, THEN 15ML/HR IV SCH ×2 (09:09→10:50)
[2023-01-15] MEDS ORDERED: PROPOFOL IV EMULSION 10 MG/ML 20 ML VIAL IV ONE ×2 (09:51→12:43)
[2023-01-15] MEDS ORDERED: MIDAZOLAM HCL 1 MG/ML 2ML VIAL ONE ×2 (09:51→11:23)
[2023-01-15] MEDS ORDERED: fentaNYL citrate PF 100 MCG/2 ML VIAL ONE (09:51)
[2023-01-15] MEDS ORDERED: ONDANSETRON INJ 2 MG/ML 2 ML VIAL ONE (09:51)
[2023-01-15] MEDS ORDERED: LIDOCAINE 2% 2 ML VIAL/AMP(20MG/ML) INFIL ONE (09:51)
[2023-01-15] MEDS ORDERED: SODIUM CHLORIDE 0.9% PF 50 ML VIAL ONE (11:28)
[2023-01-15] MEDS ORDERED: BUPIVACAINE/EPINEPHRINE 0.25% 1:200,000 30 ML VIAL ONE (11:28)
[2023-01-15] MEDS ORDERED: VANCOMYCIN HCL 1000MG/20ML VIAL ONE (11:28)
[2023-01-15] MEDS ORDERED: BUPIVACAINE LIPOSOME 1.3% 266 MG/20 ML VIAL ONE (11:28)
[2023-01-15] MEDS ORDERED: ePHEDrine sulfate 50 MG/ML AMP IV PRN (11:49)
[2023-01-15] MEDS ORDERED: ATROPINE SULFATE 0.1 MG/ML 10ML SYR IV PRN (11:49)
[2023-01-15] MEDS ORDERED: ePHEDrine sulfate 50 MG/ML AMP ONE (11:52)
--- NOTE | 2023-01-15 13:11 | Operative Report ---
PG Post Operative Report Pre & Post Diagnosis Operation Date: 01/15/23 10:20 Pre-Op Diagnosis: Right Knee Degenerative Joint disease Post-Op Diagnosis: Right Knee Degenerative Joint disease I identified the patient and participated in the time-out.: Yes Procedure Operation Date: 01/15/23 10:20 Actual Procedures p Right Total Knee Arthroplasty(Right) - Sergio Joya MD Surgeon Sergio Joya MD Accounting Auditor Enoch Azul PA-C Estimated Blood Loss 50 Findings Consistent with Post-Op Diagnosis Operative findings were advanced right knee DJD. She asked extensive grade 4 [id number] disease and eburnation of the medial compartment. She has some spotty grade 4 changes of patellofemoral compartment. She had a varus deformity to her knee. Moderate-sized joint effusion. Specimens Right knee sent for pathology Anesthesia Type Spinal MAC Complications none Disposition Accompanied Patient To Recovery: No Indications Patient is a 77-year-old female who said a long history of bilateral knee pain discomfort and arthritic changes. She underwent a left knee replacement about a year ago. She is done well with this. She can be bothered by right knee pain discomfort. She failed conservative measures. She elected proceed with surgical treatment. Patient does carry a diagnosis of rheumatoid arthritis. She did get stress dose steroids preoperatively. Description of Procedure Operative implants consist of: 1 Biomet Vanguard size 67.5 right posterior stabilized femoral component. 2. Biomet size 67 tibial tray. 3. 12 mm posterior stabilized polyethylene insert. 4. 31 x 8 all poly patella. The patient was taken to the operating, identified, and placed on the operating table supine position protectors were properly padded. IV antibiotics tried by anesthesia team. Spinal anesthetic and abductor canal block had provided in the holding area. Cartagena catheter was placed in sterile fashion. Right Tetrick was then placed in the right lower extremity then prepped and draped in usual sterile fashion. The right leg was elevated exsanguinated with use of an Esmarch in terms playset 300 mmHg. An anterior approach to the right knee was then performed through a longitudinal incision centered over the patella. Sharp dissection was carried through subcutaneous tissue down the extensor mechanism. A medial parapatellar throb incision was made. Some subperiosteal dissection was carried out medially. The fat pad was dissected from Neath patella tendon. The lateral patellofemoral ligament was released. Patella subluxated laterally and the knee was flexed. The osteophytes were taken off distal femur. The ACL PCL then released from distal femur and the tibia subluxated anteriorly. External tibial alignment jig was then placed in the interface the tibia and adjusted 12 mm medially. Proximal tibial cut was made remove about 2 mm of bone from the medial side. The tibia sized to a size 67. We tried to maximize coverage due to her osteopenia. Attention drawn the femur. The distal femur was entered with a sharp drill. Intramedullary canal was suction. A right 5 degree valgus cutting guide was placed. Distal femoral cutting block was pinned in place. Distal femoral cut was made to take an additional 3 mm of bone off distal femur. The femur was then sized to a size 67.5. We actually downsize this slightly. The AP cutting block was pinned parallel to the epicondylar axis which was 5 degrees of external rotation. Anterior cut, anterior chamfer, posterior cut, posterior chamfer cuts were made. The box cutting guide was placed in the just slight lateral and the box cut was made. The knee was flexed. The remnants of the medial and lateral menisci were excised. The osteophytes were taken off the posterior aspect of the femur. A trial femoral component was placed. The tibial tray was pinned in maximum external rotation and the drill and stem punch were used to create the defect in the proximal tibia for the tibial tray. The knee was then trialed and the 12 mm insert fit most appropriately. Attention drawn the patella. The patella was cleaned of all soft tissues. Patella thickness measured 23 mm in thickness was cut down to 14. Was sized to a size 31 patella. The lug holes were drilled for 31 patella. Lateral osteophytes removed. Patella button was placed. Knee was taken through range of motion patella tracked nicely with no thumbs test. Attention drawn to place the permanent components. Nupathe all trial components were removed. Bone plug was placed into the distal femur limit blood loss. A double batch Palacos G cement was mixed. I did add an additional gram of vancomycin due to her immunosuppression and rheumatoid disease. A Biomet SkuRunguard size 67.5 right posterior stabilized femoral component, size 67 tibial tray, 812 mm posterior stabilized polyethylene insert, and a 31 x 8 all Paller patella then cemented in place. Knee was brought out into full extension till cement hardened. Final cement check was then performed. Pericapsular tissues were injected with total of 100 cc of combination of 20 cc of Exparel, 30 cc normal saline, 50 cc of quarter percent Marcaine with epinephrine. Patient did receive 1 g tranexamic acid. The tourniquet was then let down for final tourniquet time of 50 minutes. Hemostasis assured use electrocautery. Extensor mechanism closed with combination 1 PDS suture #1 Vicryl suture in a [id number] fashion. Extensor mechanism checked found to be intact through the subcutaneous tissues then closed with 2 Dexon suture in a buried interrupted fashion skin was closed skin el. Leg was then cleaned and dried and sterile dressing was Xeroform, 4 fours, sterile cast padding, Matias bandage were applied. Patient then transferred to the recovery room in stable condition. Patient tolerated the procedure well and there were no complications. Enoch Azul, my physician clerical dentist assistant, was present for the entire procedure. His assistance was essential and required for appropriate patient positioning, prepping and draping, surgical exposure, performing the technical details of the operation, placement the implants, closure of the wound, and placement of the sterile bandage. I attest to the content of the Intraoperative Record and any orders documented therein. Any exceptions are noted below.
--- NOTE | 2023-01-15 14:15 | XRay Report ---
RIGHT KNEE 2 VIEWS History: Right total knee arthroplasty. Degenerative arthritis. Postop. FINDINGS: The patient is status post a right total knee arthroplasty. The hardware is intact. No frac ture or dislocation. Skin el are in place. IMPRESSION: Right total knee arthroplasty. No evidence for hardware complication. ACT 112: Negative or not required by law. Electronically signed by: Dalton Moon M.D. 01/15/2023 2:14 PM
--- NOTE | 2023-01-15 14:18 | Anesthesiology Progress Note ---
Date of Service January 15, 2023 Anesthesia Post Procedure Vital Signs Vital Signs: Temp Pulse Pulse Resp BP BP Pulse Ox 01/15/23 13:50 36.2 C L 71 18 125/60 96 01/15/23 13:40 74 16 116/56 L 99 01/15/23 13:30 72 16 114/59 L 98 01/15/23 13:20 80 18 113/60 98 01/15/23 13:09 36 C L 85 16 106/59 L 95 01/15/23 08:27 36.9 C 67 18 129/81 96 O2 Del Method 01/15/23 13:50 Room Air 01/15/23 13:40 Room Air 01/15/23 13:30 Room Air 01/15/23 13:20 Room Air 01/15/23 13:09 Room Air 01/15/23 08:27 Room Air Transfer of Care Handoff Completed per policy Notes Mental Status: alert / awake / arousable Patient Amnestic to Procedure: Yes Nausea / Vomiting: adequately controlled Pain: adequately controlled Airway Patency, RR, SpO2: stable & adequate BP & HR: stable & adequate Hydration State: stable & adequate Neuraxial Anesthesia: was administered and sensory block is resolving Anesthetic Complications: no major complications apparent
[2023-01-15] MEDS ORDERED: METOCLOPRAMIDE HCL INJ 5 MG/ML 2 ML VIAL IV PRN (14:32)
[2023-01-15] MEDS ORDERED: NO NSAIDS SCH (14:32)
[2023-01-15] MEDS ORDERED: SODIUM CHLORIDE 0.9% 1000ML 1,000 ML IV SCH (14:32)
[2023-01-15] MEDS ORDERED: NALOXONE HCL 0.4 MG/1 ML VIAL/CARP IV PRN (14:32)
[2023-01-15] MEDS ORDERED: MAGNESIUM HYDROXIDE SUSP 30 ML UDC PO PRN (14:32)
[2023-01-15] MEDS ORDERED: bisacodyL 10 MG SUPP PR PRN (14:32)
[2023-01-15] MEDS ORDERED: ONDANSETRON INJ 2 MG/ML 2 ML VIAL IV PRN (14:32)
[2023-01-15] MEDS ORDERED: HYDROmorphone INJ 0.5 MG/0.5 ML SYR IV PRN (14:32)
[2023-01-15] MEDS ORDERED: SENNA 8.6 MG TAB PO PRN (14:32)
[2023-01-15] MEDS ORDERED: ALUMINUM/MAGNESIUM SUSP 30 ML UDC PO PRN (14:32)
[2023-01-15] MEDS: ACETAMINOPHEN 500 MG TAB PO SCH ×2 (15:32→19:31)
[2023-01-15] MEDS: FERROUS GLUCONATE 324 MG TAB PO SCH (17:53)
[2023-01-15] MEDS: ASCORBIC ACID 500 MG TAB PO SCH (17:53)
[2023-01-15] MEDS ORDERED: TRANEXAMIC ACID / 0.7% NACL 1,000 MG/100 ML BAG IV SCH (19:15)
[2023-01-15] MEDS: ceFAZolin 2000MG 2,000 MG/15 ML SYR IV SCH (19:28)
[2023-01-15] MEDS: MYCOPHENOLATE MOFETIL 250 MG CAP PO SCH (19:29)
[2023-01-15] MEDS: SENNA 8.6 MG TAB PO SCH (19:31)
[2023-01-15] MEDS: ATORVASTATIN 20 MG TAB PO SCH (19:31)
[2023-01-15] MEDS: ASPIRIN 81 MG ECTAB PO SCH (19:32)
[2023-01-15] MEDS: DOCUSATE SODIUM 100 MG CAP PO SCH (19:32)
[2023-01-15] MEDS: oxyCODONE HCL IR 5 MG TAB (IMMEDIATE RELEASE) PO PRN (22:22)
[2023-01-16] MEDS: ceFAZolin 2000MG 2,000 MG/15 ML SYR IV SCH (02:45)
[2023-01-16] MEDS: LEVOTHYROXINE SODIUM 137 MCG TABLET PO SCH (05:35)
[2023-01-16] MEDS: ATENOLOL 25 MG TABLET PO SCH (07:41)
[2023-01-16] MEDS: DOCUSATE SODIUM 100 MG CAP PO SCH ×2 (07:41→19:45)
[2023-01-16] MEDS: ASPIRIN 81 MG ECTAB PO SCH ×2 (07:41→19:47)
[2023-01-16] MEDS: predniSONE 5 MG TAB PO SCH (07:41)
[2023-01-16] MEDS: CHOLECALCIFEROL 1,000 UNITS 25 MCG TAB PO SCH (07:41)
[2023-01-16] MEDS: VALSARTAN 80 MG TAB PO SCH (07:42)
[2023-01-16] MEDS: CALCIUM 600MG + VIT D 400 IU TAB PO SCH (07:42)
[2023-01-16] MEDS: MULTIVITAMIN TAB PO SCH (07:42)
[2023-01-16] MEDS: ACETAMINOPHEN 500 MG TAB PO SCH ×3 (07:42→19:49)
[2023-01-16] MEDS: FERROUS GLUCONATE 324 MG TAB PO SCH ×2 (07:43→16:57)
[2023-01-16] MEDS: ASCORBIC ACID 500 MG TAB PO SCH ×2 (07:43→16:57)
[2023-01-16] MEDS: MYCOPHENOLATE MOFETIL 250 MG CAP PO SCH ×2 (07:43→19:46)
[2023-01-16 07:53] LABS: BUN Creatinine Ratio 22.5 (10-20); Calcium 8.1 mg/dl (8.6-10.3); Creatinine Clr Calc Pharmacy 28.4 ml/min; Est GFR (African American) 29.2 ml/min; Est GFR (Non-African American) 25.2 ml/min; Potassium 4.4 mmol/L (3.5-5.1)
[2023-01-16] MEDS ORDERED: dexAMETHasone 10 MG in SYRINGE 0 ML IV SCH (08:00)
[2023-01-16 08:02] LABS: Hematocrit (blood only) 29.5 % (37.0-47.0); Hemoglobin 9.1 g/dl (12.0-16.0); Mean Corpuscular Hemoglobin 31.4 pg (25.0-34.0); Mean Corpuscular Hgb Conc 30.8 g/dL (32.0-36.0); Mean Corpuscular Volume 101.7 fL (80.0-100.0); Mean Platelet Volume 11.3 fL (9.4-12.4); Platelet Count 239 K/uL (130-400); RDW Coefficient of Variation 14.5 % (11.5-14.5); RDW Standard Deviation 53.9 fL (36.4-46.3); White Blood Count 15.93 K/ul (4.8-10.8)
[2023-01-16] MEDS: hydroCHLOROthiazide 25 MG TAB PO SCH (08:10)
--- NOTE | 2023-01-16 08:55 | Progress Notes ---
DATE OF NOTE: 01/16/2023. SUBJECTIVE: A 77-year-old white female postop day 1 from right knee replacement. She is doing quite well. Not really having much pain. Had a pretty good night. No chest pain or shortness of breath. Not feeling dizzy or lightheaded. OBJECTIVE: VITAL SIGNS: Temperature 36.4. Vital signs are stable. GENERAL: Shows a pleasant, elderly female, she is lying in bed, looks pretty comfortable this mornin g. LUNGS: Clear to auscultation. HEART: Regular rate and rhythm. ABDOMEN: Soft, nontender, nondistended. EXTREMITIES: Grossly neurovascularly intact except as follows. Examination of the right leg reveals the dressing to be clean, dry and intact. Leg is well aligned. She can dorsiflex and plantarflex her foot appropriately. She can do a good straight leg raise. LABORATORY DATA: Hemoglobin is 9.1. Hematocrit is 29.5. Electrolytes are fairly stable. Creatinin e is slightly elevated, which is about her baseline, but slightly elevated. ASSESSMENT: A 77-year-old white female postop day 1 from a right knee replacement, doing quite well. Pain valentine she is good. She is neurologically intact. Creatinine is slightly elevated. PLAN: 1. DVT prophylaxis includes thigh-high TEDs, SCDs and we are going to use a baby aspirin twice a day . 2. PT/OT, weightbear as tolerated. Right total knee protocol. 3. Pain control, doing okay with current pain regimen. 4. Creatinine. We are going to hold all NSAIDs. Encourage p.o. intake. We will follow creatinine. 5. Disposition: She is hoping to be discharged to home with some home health. We are going to see how she does in therapy today and check a renal function tomorrow. Job ID: [id number]
[2023-01-16] MEDS ORDERED: MACUHEALTH PO SCH (09:00)
[2023-01-16] MEDS: SENNA 8.6 MG TAB PO SCH (19:45)
[2023-01-16] MEDS: ATORVASTATIN 20 MG TAB PO SCH (19:46)
[2023-01-16] MEDS: oxyCODONE HCL IR 5 MG TAB (IMMEDIATE RELEASE) PO PRN (22:35)
[2023-01-17] MEDS: LEVOTHYROXINE SODIUM 137 MCG TABLET PO SCH (05:54)
[2023-01-17] MEDS: ASPIRIN 81 MG ECTAB PO SCH (07:39)
[2023-01-17] MEDS: ASCORBIC ACID 500 MG TAB PO SCH (07:39)
[2023-01-17] MEDS: FERROUS GLUCONATE 324 MG TAB PO SCH (07:39)
[2023-01-17] MEDS: MYCOPHENOLATE MOFETIL 250 MG CAP PO SCH (07:40)
[2023-01-17] MEDS: MULTIVITAMIN TAB PO SCH (07:40)
[2023-01-17] MEDS: ATENOLOL 25 MG TABLET PO SCH (07:40)
[2023-01-17] MEDS: CHOLECALCIFEROL 1,000 UNITS 25 MCG TAB PO SCH (07:40)
[2023-01-17] MEDS: DOCUSATE SODIUM 100 MG CAP PO SCH (07:41)
[2023-01-17] MEDS: hydroCHLOROthiazide 25 MG TAB PO SCH (07:41)
[2023-01-17] MEDS: CALCIUM 600MG + VIT D 400 IU TAB PO SCH (07:41)
[2023-01-17] MEDS: VALSARTAN 80 MG TAB PO SCH (07:41)
[2023-01-17] MEDS: predniSONE 5 MG TAB PO SCH (07:41)
[2023-01-17 07:44] LABS: BUN Creatinine Ratio 31.5 (10-20); Calcium 8.5 mg/dl (8.6-10.3); Creatinine Clr Calc Pharmacy 37.2 ml/min; Est GFR (African American) 40.4 ml/min; Est GFR (Non-African American) 34.8 ml/min; Potassium 4.6 mmol/L (3.5-5.1)
[2023-01-17] MEDS: ACETAMINOPHEN 500 MG TAB PO SCH (07:44)
--- NOTE | 2023-01-17 08:46 | Progress Notes ---
DATE OF SERVICE: 01/17/2023 SUBJECTIVE: A 77-year-old white female postop day 2 from a right knee replacement. She is doing pre tty well. Therapy went pretty well. Pain is controlled. No chest pain or shortness of breath. Not feeling dizzy or lightheaded. OBJECTIVE: VITAL SIGNS: Temperature 36.6. Vital signs are stable. PHYSICAL EXAMINATION: GENERAL: Physical exam shows a pleasant, elderly female. She is lying in bed and looks comfortable. EXTREMITIES: Examination of the right leg reveals the leg to be well aligned. Dressing is clean, dr y, and intact. She can do a good straight leg raise. She can dorsiflex and plantarflex her foot wes ropriately. LABORATORY DATA: Creatinine is improved at 1.46 and pretty much back to baseline. ASSESSMENT: A 77-year-old white female postop day 2 from right knee replacement, doing well. Pain i s controlled. She is neurologically intact. Therapy went well. Her creatinine is back to normal. PLAN: 1. DVT prophylaxis to include thigh-high TEDs, SCDs, and aspirin twice a day. 2. PT, OT, and weightbear as tolerated. Right total knee protocol. 3. Pain control, doing okay with current pain regimen. 4. Disposition: Plan to discharge her home with some home health later today. Job ID: [id number]
[2023-01-18] MEDS ORDERED: CALCITRIOL 0.25 MCG CAPSULE PO SCH (09:00)
--- NOTE | 2023-01-20 14:21 | Discharge Summary ---
Date of Service January 20, 2023 Discharge Data Procedures Performed Operation Date: 01/15/23 10:20 Actual Procedures p Right Total Knee Arthroplasty(Right) - Sergio Joya MD Hospital Course (1) Status post total right knee replacement: This is a 77 year old patient admitted on 01/15/23 and underwent total knee arthroplasty. She tolerated the procedure well and there were no complications. Transferred to the PACU post op and later to the orthopedic floor for further care. She was given ancef for antibiotic prophylaxis. She was also given JEREMIAH stockings, SCDs, and aspirin for DVT prophylaxis. Hemoglobin, hematocrit, and vital signs were monitored during her hospital stay and remained stable. Did not require any blood transfusions. There were no complications during her hospital stay. By post op day #2 the patient was tolerating a regular diet, pain was reasonably controlled with oral pain medicine, and she was participating in physical therapy. On post op day #2 the patient was discharged home and set up with home health care. She was given printed discharge instructions including prescriptions for extra strength tylenol, aspirin,cefadroxil, zofran, oxycodone, and senokot. Continue physical therapy, weight bearing as tolerated. Continue JEREMIAH stockings. Follow up approximately 2 weeks post op or sooner if there are problems or concerns. Coding Level of Care Code None Diagnoses Status post total right knee replacement Z96.651
[2023-01-21] MEDS ORDERED: RISEDRONATE SODIUM 35 MG TAB PO SCH (06:30)
== END 2023-01-17 11:25 | disposition home health service (06) ==
LOC: ASU 08:04 → OBSVTOIN 13:10 → 3N 13:10 → INTOOBSV 13:10

== ENCOUNTER 2024-07-11 08:15 | Inpatient (IN) ==
--- NOTE | 2024-07-11 09:09 | Emergency Department Note ---
Impression & Plan Abdominal distension, Nausea & vomiting, Colonic obstruction ED Provider Note ED Provider Note NAME: NICHOLE LEARY AGE:78 SEX: Female : 1945 ARRIVES VIA: Private vehicle INFORMANT: Patient ED PROVIDER(s): Holly Whitfield DO CHIEF COMPLAINT: Abdominal distention, nausea and vomiting HPI: This is a 78-year-old female who presents emergency ferment due to concern for worsening abdominal distention and fullness as well as nausea and vomiting overnight. Patient relays a long history dating back to the 1970s of an intermittent sense of fullness to her upper abdomen particularly on the right upper quadrant. She states these episodes would come and go and no etiology was ever discovered. Patient began to notice in 2001 after she was put on Biologics for her lupus that the episodes began to occur more frequently although she could still not isolate any particular pattern or trigger for these. She states she began feeling as though she was having other episode the beginning of June. She states her fullness and discomfort have waxed and waned over the course of the month but seem to be getting better the end of last week when she had a routinely scheduled appointment with her PCP. She states yesterday she began to have worsening symptoms again and overnight felt worse with persistent nausea and recurrent dry heaving. She denies any focal abdominal pain. She did have a normal bowel movement overnight. No recent melena or hematochezia. She denies any recent change in her urine. Denies fevers or chills. No recent change in diet, medications, or known sick contacts. She did previously have a colonoscopy which showed diverticulosis and hemorrhoids, no other abnormalities noted. She states only prior surgical history was a tubal ligation. PAST MEDICAL HISTORY:See Below PAST SURGICAL HISTORY:See Below FAMILY HISTORY:See Below SOCIAL HISTORY:See Below HOME MEDICATIONS:See Below ALLERGIES:See Below VITALS:See Below PHYSICAL EXAMINATION: GENERAL: alert, well appearing, well nourished, no distress, non-toxic EYE EXAM: normal conjunctiva, PERRL and EOM's grossly intact OROPHARYNX: no exudate, no erythema, lips, buccal mucosa, and tongue normal and mucous membranes are moist NECK: supple, no nuchal rigidity, no adenopathy, non-tender LUNGS: Clear to auscultation. Normal chest wall mechanics, no w/r/r HEART: no murmurs, S1 normal and S2 normal ABDOMEN: abdomen soft, non-tender, decreased bowel sounds, no masses, no rebound or guarding. Distention noted. Tympanitic to percussion. BACK: Back is symmetrical on inspection and there is no deformity, no midline tenderness, no CVA tenderness. SKIN: no rashes, petechiae, orbruising UPPER EXTREMITIES: upper extremities are grossly normal. FROM, nml pulses b/l. LOWER EXTREMITIES: No pitting edema. FROM, nml pulses b/l. NEURO EXAM: Normal sensorium, cranial nerves II-XII grossly intact, normal speech, no facial droop,nogross weakness of arms, no gross weakness of legs. Gross sensation intact. No ataxia. Vital Signs: reviewed and remarkable Differential Diagnosis: IBS, viral syndrome, SBO, colitis, medication ADR, mass, mesenteric ischemia, cholecystitis, pancreatitis, BRIAN, dehydration, as well as others were considered MEDICAL DECISION MAKING: This is a 78-year-old female who presents emergency department due to concern for 1 week of waxing waning abdominal distention and discomfort. Patient with multiple prior similar episodes dating back to the 1970s. She was afebrile and hemodynamically stable on arrival. Labs drawn and sent, IV established, EKG performed at bedside interpreted by me and patient monitored on telemetry. She was started on IV fluids and given IV Tylenol IV Reglan, and IV Pepcid initially. She was sent for CT of the abdomen and pelvis with oral contrast. CT suggestive of colonic obstruction. I initially reached out to on-call RA[facility], Dr. Bermudez. After eventually speaking with Ashley, one of the nurse practitioners as he was on a procedure, they recommended consultation with general surgery. I discussed with general surgery who agreed that patient likely needed more urgent colonoscopy/sigmoidoscopy by GI. I did ask given their concerns that they speak directly with GI to help facilitate these consultations and an appropriate plan of care. Eventually plan for flex sigmoidoscopy by GI prior to any further interventions to be done today over an endoscopy. Case discussed with the hospitalist team for additional evaluation and management. Consults placed for both GI and general surgery. Patient updated several times on plan and verbalized understanding. She was hemodynamically stable throughout. Consultation(s): 1350: Discussed with [facility] Ramirez, who spoke with Dr. Bermudez. They are requesting a general surgery consult given the location of the transition point. 1411: Discussed with Erin Torres PA-C with general surgery, via [place] text. 1550: Discussed with Dr. Alcantara, [facility] hospitalist team, for additional evaluation and management. ER Treatment Provided: See below Diagnostics Interpreted By Me: -ECG: Normal sinus at 70, normal axis, normal intervals, no acute ST/T wave changes -Cardiac Monitoring: An order was placed for continuous cardiac monitoring. The monitor shows a rate of 70 with normal sinus rhythm. -Laboratory studies: As stated above and show below. -Imaging studies: ct a/p - no perf Triage Nursing Note Reviewed Prior/Outside Records Reviewed Critical Care: Critical care of 39 min performed to assess and manage high likelihood of life-threatening colonic obstruction, involving labs and imaging performed with assessment to evaluate abdominal pain diagnosis with frequent reassessment. This time includes bedside time, treatment discussions with patient/family/consultants, documentation time and excludes procedure time. Past Med/Surg History Problem List (Updated 07/12/24 @ 09:14 by Elizabeth Armstrong DO) Colonic obstruction (Acute) Troponin level elevated Colonic obstruction Nausea & vomiting (Acute) Abdominal distension (Acute) Osteoarthritis of fingers of hands, bilateral (Acute) Osteoarthritis of knee (Acute) Osteopenia (Acute) Medical History (Updated 07/12/24 @ 09:14 by Elizabeth Armstrong DO) CKD (chronic kidney disease) stage 3, GFR 30-59 ml/min Macrocytic anemia Prediabetes At risk for cardiovascular event Disc degeneration, lumbar Hilar enlargement Hypertension Hypothyroidism FPC (current) use of systemic steroids Daily Prednisone 5mg (taken for lupus and RA per patient) Lupus nephritis Peripheral neuropathy Peripheral neuropathy, hereditary/idiopathic Proteinuria Rheumatoid arthritis Follows with rheum - Dr. Helena Ray per patient History of radioactive iodine thyroid ablation Secondary to hyperthyroidism History of bronchitis No recent issues Systemic lupus erythematosus Surgical History Status post total right knee replacement Status post total left knee replacement 01/30/22 @ [facility] History of anesthesia reaction WOKE UP IN MIDDLE OF BRONCHOSCOPY Bartholin cyst removal on bilt sides History of removal of cyst benign cyst removed off left lymph node History of biopsy kidney History of bilateral tubal ligation History of colonoscopy History of tooth extraction History of tonsillectomy History of bilateral cataract extraction History of bronchoscopy d/t bronchitis "THAT WOULD NOT CLEAR">DX WITH BAD LUNG INFECTION Family History Mother Family history of diabetes mellitus Pulmonary embolism Father Family history of diabetes mellitus COPD (chronic obstructive pulmonary disease) Acute exacerbation of emphysema Grandmother (Maternal) Family history of diabetes mellitus Grandfather (Paternal) Family history of diabetes mellitus Other No family history of adverse response to anesthesia Denies family history of Myocardial infarction Breast cancer Colorectal cancer Social History Smoking Status: Never smoker Second Hand Exposure: Yes (father smoked/ smoked); Do You Dip or Chew Tobacco: No; Hx Alcohol Use: Yes Alcohol type: wine Alcohol type Comment: Wine with every evening meal Hx Substance Use: No Preferred Language: Uzbek Communication Ability: Effective Visual Impairment: No Limitations Hearing Ability: Normal Environmental Adviser Required: No Beliefs That Will Affect Care: None marital status: Current Living Situation: Spouse current occupational status: retired How many Children do You have: 0 Other Information That Helps Us Care for You: No Feels Safe at Home: No Is there a partner from a previous relationship who is making you feel unsafe now?: No Any Concerns about Your Family Situation: No Would You Like to Speak to Someone About Your Situation: No Safety Concerns: Feels Safe At This Time Childhood Exposure to Second-Hand Smoke: Yes Diet: regular caffeine: Yes (iced tea approx 3 x weekly) Dental Care, Regularly: Yes Physical Activity Frequency: 1-2 Times per Week Seatbelt Use: always Sunscreen Use: No Assistive Devices: Walker Allergies Allergies Allergy/AdvReac Type Severity Reaction Status Date / Time Iodinated Contrast Media AdvReac Intermediate CONTRAST Verified 07/11/24 15:29 DYE CAUSES RENAL PROBLEMS PER DR CESAR Home Meds Home Medications Medication Instructions Recorded Confirmed calcium ER 600 mg (as carb,cit)-D3 1 tab PO QAM 03/29/20 07/11/24 12.5 mcg (500 unit) tablet, ext.rel (Citracal-D3 Slow Release) cholecalciferol (vitamin D3) 25 1,000 unit PO QAM 03/29/20 07/11/24 mcg (1,000 unit) tablet (Vitamin D3) prednisone 5 mg tablet 5 mg PO QAM 03/29/20 07/11/24 [facility] 1 tab PO QAM 07/30/21 07/11/24 Previous Rx's Medication Instructions Recorded hydroxychloroquine 200 mg tablet 200 mg PO QAM #90 tabs 05/08/20 amoxicillin 500 mg capsule 2,000 mg (4 x 500 mg) PO ONCE #10 04/01/22 caps risedronate 35 mg tablet (Actonel) 35 mg PO .Weekly #12 tabs 04/13/22 valsartan 160 1 tab PO QAM #90 tabs 10/12/23 mg-hydrochlorothiazide 25 mg tablet atenolol 25 mg tablet 25 mg PO QAM #90 tabs 11/26/23 atorvastatin 20 mg tablet 20 mg PO QPM #90 tabs 11/26/23 calcitriol 0.25 mcg capsule 0.25 mcg PO .COMPLEX #36 caps 11/26/23 levothyroxine 137 mcg tablet 137 mcg PO DAILY #90 tabs 11/26/23 mycophenolate mofetil 500 mg tablet 1,000 mg (2 x 500 mg) PO BID #360 01/25/24 tabs Results & Data (ED) Vital Signs Vital Signs - 24 hr 07/11/24 10:09 07/11/24 14:56 07/11/24 15:27 Temperature Temperature Source Pulse Rate 59 L 87 Pulse Rate [Apical] 70 Pulse Rate [Right Finger] Pulse Rate from SpO2 Sensor 58 L Pulse Rhythm [Right Finger] Respiratory Rate 15 17 15 Respiratory Effort / Characteristics Respiratory Depth Respiratory Pattern Blood Pressure 142/82 H Blood Pressure [Left Arm] 148/81 H Blood Pressure Mean [Left Arm] 103 Blood Pressure Position [Left Arm] Pulse Oximetry 93 97 98 Oxygen Delivery Method Room Air Room Air Room Air 07/11/24 15:31 07/11/24 15:58 Temperature 36.6 C Temperature Source Oral Pulse Rate Pulse Rate [Apical] 72 Pulse Rate [Right Finger] 71 Pulse Rate from SpO2 Sensor Pulse Rhythm [Right Finger] Regular Respiratory Rate 16 20 Respiratory Effort / Characteristics Non-Labored Spontaneous Non-Labored Spontaneous Respiratory Depth Normal Normal Respiratory Pattern Regular Blood Pressure Blood Pressure [Left Arm] 152/105 H 160/86 H Blood Pressure Mean [Left Arm] 120 110 Blood Pressure Position [Left Arm] Lying Semi-fowlers Pulse Oximetry 95 96 Oxygen Delivery Method Room Air Room Air Laboratory Data 07/11/24 08:40 07/11/24 08:40 Lab Results 07/11/24 07/11/24 Range/Units 08:40 11:05 WBC 12.15 H (4.8-10.8) K/ul RBC 4.09 L (4.20-5.40) M/uL Hgb 12.5 (12.0-16.0) g/dl Hct 39.8 (37.0-47.0) % MCV 97.3 (80.0-100.0) fL MCH 30.6 (25.0-34.0) pg MCHC 31.4 L (32.0-36.0) g/dL RDW Std Deviation 50.4 H (36.4-46.3) fL RDW Coeff of Carito 14.1 (11.5-14.5) % Plt Count 313 (130-400) K/uL MPV 11.2 (9.4-12.4) fL Immature Gran % (Auto) 0.6 % Neut % (Auto) 76.0 % Lymph % (Auto) 14.9 % Gregg % (Auto) 7.4 % Eos % (Auto) 0.5 % Baso % (Auto) 0.6 % Neut # (Auto) 9.24 H (1.40-6.50) K/uL Lymph # (Auto) 1.81 (1.20-3.40) K/uL Gregg # (Auto) 0.90 H (0.11-0.59) K/uL Eos # (Auto) 0.06 (0.00-0.50) K/uL Baso # (Auto) 0.07 (0.00-0.20) K/uL Immature Gran # (Auto) 0.07 (0.01-0.20) K/uL PT 10.2 (9.0-12.0) Seconds INR 0.9 (0.9-1.1) Sodium 140 (136-145) mmol/L Potassium 4.2 (3.5-5.1) mmol/L Chloride 103 (98-107) mmol/L Carbon Dioxide 27 (21-32) mmol/L Anion Gap 10 (3-11) BUN 30 H (6-23) mg/dl Creatinine 1.64 H (0.6-1.2) mg/dl Est Cr Clr Drug Dosing 32.7 ml/min eGFR 32.25 BUN/Creatinine Ratio 18.3 (10-20) Glucose 145 H (70-99(Fasting)) mg/dl Calcium 9.3 (8.6-10.3) mg/dl Magnesium 1.8 (1.7-2.4) mg/dl Total Bilirubin 0.8 (0.2-1.0) mg/dl AST 52 H (13-39) U/L ALT 16 (7-52) U/L Alkaline Phosphatase 46 (34-104) U/L Troponin I High Sens 14.3 H (0-14) pg/ml Total Protein 6.8 (6.0-8.3) gm/dl Albumin 4.3 (3.4-5.0) gm/dl Globulin 2.5 (2.5-4.0) gm/dl Albumin/Globulin Ratio 1.7 (0.9-2) Lipase 30 (11-82) U/L Urine Color Yellow Urine Appearance Clear (Clear) Urine pH 5.5 (4.5-7.5) Ur Specific [place] 1.018 (1.000-1.030) Urine Protein 1+ H (Negative) Urine Glucose (UA) Negative (Negative) Urine Ketones Negative (Negative) Urine Blood Negative (Negative) Urine Nitrite Negative (Negative) Urine Bilirubin Negative (Negative) Urine Urobilinogen Negative (Negative) Ur Leukocyte Esterase Trace H (Negative) Urine WBC (Auto) 0-5 (0-5) /hpf Urine RBC (Auto) 0-2 (0-2) /hpf U Hyaline Cast (Auto) 3-5 H (0-2) /lpf U Epithel Cells (Auto) 0-2 (0-2) /hpf Urine Bacteria (Auto) None Seen (None Seen) Administered Medications Lactated Ringer's (Lr) 1,000 mls @ 80 mls/hr IV .[id number] TIMA Stop: 07/12/24 18:44 Last Infusion: 07/12/24 08:50 Dose: Infused Documented By: Infusion: 07/12/24 06:28 Dose: 80 mls/hr Documented By: Admin: 07/11/24 18:12 Dose: 80 mls/hr Documented By: ONEYDAR Metoprolol Tartrate (Metoprolol Tartrate 1 Mg/Ml Vial) 2.5 mg IV Q6 TIMA Stop: 08/10/24 17:59 Last Admin: 07/12/24 06:00 Dose: 2.5 mg Documented By: Admin: 07/12/24 00:52 Dose: 2.5 mg Documented By: Admin: 07/11/24 18:16 Dose: 2.5 mg Documented By: DLR Discontinued Medications Sodium Chloride (Nss) 1,000 mls @ 125 mls/hr IV .Q8H TIMA Stop: 07/12/24 09:14 Last Infusion: 07/11/24 19:04 Dose: Infused Documented By: Admin: 07/11/24 18:15 Dose: Not Given Documented By: Admin: 07/11/24 09:19 Dose: 125 mls/hr Documented By: JOVANI Famotidine (Pepcid 20mg Iv Push) 20 mg in 5 mls @ 2.5 mls/min IV NOW STA Stop: 07/11/24 09:05 Last Admin: 07/11/24 09:19 Dose: 2.5 mls/min Documented By: JOVANI Acetaminophen (Ofirmev) 1,000 mg in 100 mls @ 400 mls/hr IV NOW STA Stop: 07/11/24 09:18 Last Infusion: 07/11/24 10:13 Dose: Infused Documented By: Admin: 07/11/24 09:19 Dose: 400 mls/hr Documented By: JOVANI Hydrocortisone Sodium (Succinate 20 mg/ Syringe) 0.4 mls @ 4 mls/min IV Q6H TIMA Stop: 08/10/24 17:59 Last Admin: 07/12/24 06:02 Dose: 4 mls/min Documented By: Admin: 07/12/24 00:53 Dose: 4 mls/min Documented By: Admin: 07/11/24 18:27 Dose: 4 mls/min Documented By: SUDHA Metoclopramide HCl (Metoclopramide Hcl Inj 5 Mg/Ml 2 Ml Vial) 5 mg IV ONE ONE Stop: 07/11/24 09:05 Last Admin: 07/11/24 09:19 Dose: 5 mg Documented By: JOVANI Imaging Data Radiologist's Impression: Abdomen/Pelvis CT 07/11/24 09:04 CT OF THE ABDOMEN AND PELVIS WITH ORAL CONTRAST CLINICAL HISTORY: Abdominal bloating and distention. COMPARISON STUDY: Renal ultrasound June 03, 2023. Right upper quadrant ultrasound June 19, 2011. TECHNIQUE: Axial images of the abdomen and pelvis were obtained without IV contrast. Oral contrast was administered. automated exposure control was utilized for the study. A dose lowering technique was utilized adhering to the principles of ALARA. FINDINGS: No pneumatosis, free air or portal venous gas is present. Evaluation of the abdomen and pelvis is suboptimal on this unenhanced examination. A water attenuation 2.6 cm caudate lobe lesion favors a cyst. No additional hepatic lesions are identified. There is no biliary or pancreatic ductal dilatation. Moderate bilateral renal cortical thinning is noted. 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 Water attenuation 2.5 cm interpolar right renal lesion favors a cyst. There is no hydronephrosis. There are no urinary calculi. The appendix is normal. The majority of the colon is moderately distended and stool-filled. There is a large amount of poorly formed stool within the colon. Transition point within the proximal sigmoid colon is noted. There is mild diffuse pericolonic stranding. There is sigmoid diverticulosis. Sigmoid colon wall thickening is present. There is no associated lymphadenopathy. There are no fluid collections. There is no extraluminal gas. No suspicious lesions within the visualized skeletal structures are present. There is a tiny fat-containing umbilical hernia. IMPRESSION: 1. Moderately distended ascending colon, transverse colon and descending colon with apparent transition point within the proximal sigmoid colon. Mild pericolonic stranding. No pneumoperitoneum. The findings are suspicious for a colonic obstruction. Large amount of stool throughout the colon. Sigmoid colon wall thickening at site of transition is nonspecific. An underlying neoplasm cannot be excluded. However, a benign stricture or circular muscular hypertrophy in the setting of sigmoid diverticulosis could appear similar. GI consultation is recommended. 2. Colonic diverticulosis. No convincing evidence for acute diverticulitis. 3. Suboptimal evaluation of the abdomen and pelvis given lack of IV contrast. ACT 112: Positive. There are findings on this exam that require communication between the performing entity and the patient following Patient Test Result Information Act ([place] Act 112) guidelines. Electronically signed by: Seun Suggs M.D. 07/11/2024 12:30 PM Discharge Plan Visit Data Chief Complaint: Abdominal Pain Stated Complaint: RT ABD PAIN, NAUSEA/DRY HEAVES, CONSTIPATION ED Provider: Holly Whitfield Discharge Problem: Abdominal distension, Nausea & vomiting, Colonic obstruction Patient Disposition: Admitted As Inpatient Discharge Instructions Interventions: ED Discharge Assessment Last Done: 07/11/24 15:27
[2024-07-11] MEDS: FAMOTIDINE 20MG IV PUSH 20 MG/5 ML SYR IV STA (09:19)
[2024-07-11] MEDS: ACETAMINOPHEN 1,000 MG/100 ML VIAL IV STA (09:19)
[2024-07-11] MEDS: METOCLOPRAMIDE HCL INJ 5 MG/ML 2 ML VIAL IV ONE (09:19)
[2024-07-11] MEDS: SODIUM CHLORIDE 0.9% 1,000 ML IV SCH (09:19)
[2024-07-11 09:22] LABS: Basophils # (auto) 0.07 K/uL (0.00-0.20); Basophils % (auto) 0.6 %; Eosinophils # (auto) 0.06 K/uL (0.00-0.50); Eosinophils % (auto) 0.5 %; Hematocrit (blood only) 39.8 % (37.0-47.0); Hemoglobin 12.5 g/dl (12.0-16.0); Immature Granulocytes # (auto) 0.07 K/uL (0.01-0.20); Immature Granulocytes % (auto) 0.6 %; Lymphocytes # (auto) 1.81 K/uL (1.20-3.40); Lymphocytes % (auto) 14.9 %; Mean Corpuscular Hemoglobin 30.6 pg (25.0-34.0); Mean Corpuscular Hgb Conc 31.4 g/dL (32.0-36.0); Mean Corpuscular Volume 97.3 fL (80.0-100.0); Mean Platelet Volume 11.2 fL (9.4-12.4); Monocytes % (auto) 7.4 %; Neutrophils # (auto) 9.24 K/uL (1.40-6.50); Platelet Count 313 K/uL (130-400); RDW Coefficient of Variation 14.1 % (11.5-14.5); RDW Standard Deviation 50.4 fL (36.4-46.3); Red Blood Count 4.09 M/uL (4.20-5.40); White Blood Count 12.15 K/ul (4.8-10.8)
[2024-07-11 09:39] LABS: Albumin Globulin Ratio 1.7 (0.9-2); Albumin Level 4.3 gm/dl (3.4-5.0); BUN Creatinine Ratio 18.3 (10-20); Bilirubin,Total 0.8 mg/dl (0.2-1.0); Calcium 9.3 mg/dl (8.6-10.3); Creatinine Clr Calc Pharmacy 32.7 ml/min; Globulin 2.5 gm/dl (2.5-4.0); Magnesium 1.8 mg/dl (1.7-2.4); Potassium 4.2 mmol/L (3.5-5.1); Total Protein 6.8 gm/dl (6.0-8.3)
[2024-07-11 09:44] LABS: Troponin I High Sensitivity 14.3 pg/ml (0-14)
[2024-07-11 09:47] LABS: INR 0.9 (0.9-1.1); Prothrombin Time 10.2 Seconds (9.0-12.0)
[2024-07-11 11:27] LABS: Appearance Urine Clear (Clear); Bacteria Urine Automated None Seen (None Seen); Bilirubin Urine Negative (Negative); Blood Urine Negative (Negative); Color Urine Yellow; Epithelial Cell Urine Auto 0-2 /hpf (0-2); Glucose Urine UA Negative (Negative); Ketones Urine Negative (Negative); Leukocyte Esterase Urine Trace (Negative); Nitrite Urine Negative (Negative); Protein Urine 1+ (Negative); RBC Urine Automated 0-2 /hpf (0-2); Specific Gravity Urine 1.018 (1.000-1.030); Urobilinogen Urine Negative (Negative); WBC Urine Automated 0-5 /hpf (0-5); pH Urine 5.5 (4.5-7.5)
--- NOTE | 2024-07-11 12:32 | CT Scan Report ---
CT OF THE ABDOMEN AND PELVIS WITH ORAL CONTRAST CLINICAL HISTORY: Abdominal bloating and distention. COMPARISON STUDY: Renal ultrasound June 03, 2023. Right upper quadrant ultrasound June 19 1. TECHNIQUE: Axial images of the abdomen and pelvis were obtained without IV contrast. Oral contrast wa s administered. automated exposure control was utilized for the study. A dose lowering technique was utilized adhering to the principles of ALARA. FINDINGS: No pneumatosis, free air or portal venous gas is present. Evaluation of the abdomen and pel vis is suboptimal on this unenhanced examination. A water attenuation 2.6 cm caudate lobe lesion favo rs a cyst. No additional hepatic lesions are identified. There is no biliary or pancreatic ductal dil atation. Moderate bilateral renal cortical thinning is noted. Fat-containing 1.4 cm right adrenal les ion represents an angiomyolipoma. Water attenuation 2.5 cm interpolar right renal lesion favors a cys t. There is no hydronephrosis. There are no urinary calculi. The appendix is normal. The majority of the colon is moderately distended and stool-filled. There is a large amount of poorly formed stool wi thin the colon. Transition point within the proximal sigmoid colon is noted. There is mild diffuse pe ricolonic stranding. There is sigmoid diverticulosis. Sigmoid colon wall thickening is present. There is no associated lymphadenopathy. There are no fluid collections. There is no extraluminal gas. No s uspicious lesions within the visualized skeletal structures are present. There is a tiny fat-containi ng umbilical hernia. IMPRESSION: 1. Moderately distended ascending colon, transverse colon and descending colon with apparent transiti on point within the proximal sigmoid colon. Mild pericolonic stranding. No pneumoperitoneum. The find ings are suspicious for a colonic obstruction. Large amount of stool throughout the colon. Sigmoid co anton wall thickening at site of transition is nonspecific. An underlying neoplasm cannot be excluded. However, a benign stricture or circular muscular hypertrophy in the setting of sigmoid diverticulosis could appear similar. GI consultation is recommended. 2. Colonic diverticulosis. No convincing evidence for acute diverticulitis. 3. Suboptimal evaluation of the abdomen and pelvis given lack of IV contrast. ACT 112: Positive. There are findings on this exam that require communication between the performing entity and the patient following Patient Test Result Information Act ([place] Act 112) guidelines. Electronically signed by: Seun Suggs M.D. 07/11/2024 12:30 PM
--- NOTE | 2024-07-11 15:02 | Gastrointestinal Consultation ---
Date of Consultation July 11, 2024 Assessment & Plan (1) Abdominal distension: Plan 78 year old female with history of OA, CKD, lupus nephritis, HTN and others below admitted through the ED w/ abd pain, nausea and change in bowel habits imaging showing colonic distention w/ apparent transition point within the proximal sigmoid colon raising concern for a colonic obstruction. Last colon in 2019 w/ sigmoid colon diverticulosis and narrowing of the colon in association with the diverticular opening. We were asked by general surgery to provide endoscopic evaluation prior to surgical intervention. Maintain NPO status Proceed w/ unprepped flex sig today Appreciate general surgery evaluation I spent a total of 60 minutes on the date of service in review of patient's record, and previously obtained information in person and appropriate medical visit, discussion and education of plan, with patient and/or caregiver, placing orders for tests/referral/procedures as medically necessary and documentation of pertinent clinical information in patient's medical records for their visit today. Supervising Physician Co-Signing Physician Notes I examined the patient and reviewed the medical record, laboratory data and imaging studies. I agree with the assessment and plan of care as suggested by the advanced practice provider. Patient appears comfortable I reviewed her CT scan with the radiologist who felt that there is an area of narrowing in the sigmoid colon not sure if it is secondary to a stricture or to a mass the rest of the colon is dilated above the area of narrowing spoke with surgery who wanted to get endoscopic evaluation would plan an unprepped flex sig to evaluate if he can see the obstruction further recommendations after flexible sigmoidoscopy History of Present Illness Reason for Consultation: colon obstruction Requesting Physician: Dr. Whitfield Attending Physician: Dr. Whitfield History of Present Illness 78 year old female with history of AO, CKD, lupus nephritis, HTN and others below admitted through the ED w/ abd pain, nausea and change in bowel habits. Notes symptoms truly date back to . Suggests period of abd pain, nausea, decreased appetite w/ change in bowel habits. Suggests she has had an obstruction in the past but denies any surgical history. Suggests she has had worsening of her chronic symptoms over the last month or so. In the last few weeks noted abd distention, fullness, periods of nausea and dry heaving. Suggests she last moved her BMs last evening. Alternating diarrhea/constipation. No black or bloody stools. No weight loss CTAP 2023: Moderately distended ascending colon, transverse colon and descending colon with apparent transition point within the proximal sigmoid colon. Mild pericolonic stranding. No pneumoperitoneum. The findings are suspicious for a colonic obstruction. Large amount of stool throughout the colon. Sigmoid colon wall thickening at site of transition is nonspecific. An underlying neoplasm cannot be excluded. However, a benign stricture or circular muscular hypertrophy in the setting of sigmoid diverticulosis could appear similar. GI consultation is recommended. Colonic diverticulosis. No convincing evidence for acute diverticulitis. Colonoscopy 2019: - Moderate diverticulosis in the sigmoid colon. There was narrowing of the colon in association with the diverticular opening. - Non-bleeding internal hemorrhoids. - No specimens collected. Allergies Allergy/AdvReac Type Severity Reaction Status Date / Time Iodinated Contrast Media AdvReac Intermediate CONTRAST Verified 07/07/24 09:52 DYE CAUSES RENAL PROBLEMS PER DR CESAR Home Medications Medication Instructions Recorded Confirmed Type calcium ER 600 mg (as carb,cit)-D3 1 tab PO QAM 03/29/20 07/11/24 History 12.5 mcg (500 unit) tablet, ext.rel (Citracal-D3 Slow Release) cholecalciferol (vitamin D3) 25 1,000 unit PO QAM 03/29/20 07/11/24 History mcg (1,000 unit) tablet (Vitamin D3) prednisone 5 mg tablet 5 mg PO QAM 03/29/20 07/11/24 History hydroxychloroquine 200 mg tablet 200 mg PO QAM #90 tabs 05/08/20 07/11/24 Rx [facility] 1 tab PO QAM 07/30/21 07/11/24 History amoxicillin 500 mg capsule 2,000 mg (4 x 500 mg) PO ONCE #10 04/01/22 07/11/24 Rx caps risedronate 35 mg tablet (Actonel) 35 mg PO .Weekly #12 tabs 04/13/22 07/11/24 Rx valsartan 160 1 tab PO QAM #90 tabs 10/12/23 07/11/24 Rx mg-hydrochlorothiazide 25 mg tablet atenolol 25 mg tablet 25 mg PO QAM #90 tabs 11/26/23 07/11/24 Rx atorvastatin 20 mg tablet 20 mg PO QPM #90 tabs 11/26/23 07/11/24 Rx calcitriol 0.25 mcg capsule 0.25 mcg PO .COMPLEX #36 caps 11/26/23 07/11/24 Rx levothyroxine 137 mcg tablet 137 mcg PO DAILY #90 tabs 11/26/23 07/11/24 Rx mycophenolate mofetil 500 mg tablet 1,000 mg (2 x 500 mg) PO BID #360 01/25/24 07/11/24 Rx tabs Patient History Medical History (Updated 07/11/24 @ 09:09 by Holly Whitfield DO) Peripheral neuropathy, hereditary/idiopathic Proteinuria Rheumatoid arthritis Follows with rheum - Dr. Helena Ray per patient History of radioactive iodine thyroid ablation Secondary to hyperthyroidism History of bronchitis No recent issues Systemic lupus erythematosus Surgical History (Updated 07/07/24 @ 11:20 by Laurence Bryan MD) Status post total right knee replacement Status post total left knee replacement 01/30/22 @ [facility] History of anesthesia reaction WOKE UP IN MIDDLE OF BRONCHOSCOPY Bartholin cyst removal on bilt sides History of removal of cyst benign cyst removed off left lymph node History of biopsy kidney History of bilateral tubal ligation History of colonoscopy History of tooth extraction History of tonsillectomy History of bilateral cataract extraction History of bronchoscopy d/t bronchitis "THAT WOULD NOT CLEAR">DX WITH BAD LUNG INFECTION Family History Mother Family history of diabetes mellitus Pulmonary embolism Father Family history of diabetes mellitus COPD (chronic obstructive pulmonary disease) Acute exacerbation of emphysema Grandmother (Maternal) Family history of diabetes mellitus Grandfather (Paternal) Family history of diabetes mellitus Other No family history of adverse response to anesthesia Denies family history of Myocardial infarction Breast cancer Colorectal cancer Social History Smoking Status: Never smoker Second Hand Exposure: Yes (father smoked/ smoked); Do You Dip or Chew Tobacco: No; Hx Alcohol Use: Yes Alcohol type: wine Alcohol type Comment: Wine with every evening meal Hx Substance Use: No Preferred Language: Polish Communication Ability: Effective Visual Impairment: No Limitations Hearing Ability: Normal 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 Physical Exam Constitutional: WD/WN, vitals as above Respiratory: normal respiratory effort, lungs clear to auscultation Cardiovascular: Rate/Rhythm: regular rate and regular rhythm Gastrointestinal (Abdomen): Inspection/Auscultation: + abdomen distended Percussion/Palpation: + abdomen tender; no guarding and abdomen not rigid hyperactive right side bowel sounds, hypoactive left side bowel sounds Skin: no rashes, warm and dry Results & Data Vital Signs (Past 12 Hours) Vital Signs Temp Pulse Resp BP Pulse Ox O2 Del Method 07/11/24 10:09 59 L 15 93 Room Air 07/11/24 09:30 68 17 93 Room Air 07/11/24 09:03 75 93 Room Air 07/11/24 08:48 74 92 Room Air 07/11/24 08:48 75 07/11/24 08:44 145/86 H 07/11/24 08:24 36.4 C L 79 18 137/90 95 Room Air Laboratory Results 07/11/24 07/11/24 Range/Units 11:05 08:40 WBC 12.15 H (4.8-10.8) K/ul RBC 4.09 L (4.20-5.40) M/uL Hgb 12.5 (12.0-16.0) g/dl Hct 39.8 (37.0-47.0) % MCV 97.3 (80.0-100.0) fL MCH 30.6 (25.0-34.0) pg MCHC 31.4 L (32.0-36.0) g/dL RDW Std Deviation 50.4 H (36.4-46.3) fL RDW Coeff of Carito 14.1 (11.5-14.5) % Plt Count 313 (130-400) K/uL MPV 11.2 (9.4-12.4) fL Immature Gran % (Auto) 0.6 % Neut % (Auto) 76.0 % Lymph % (Auto) 14.9 % [place] % (Auto) 7.4 % Eos % (Auto) 0.5 % Baso % (Auto) 0.6 % Neut # (Auto) 9.24 H (1.40-6.50) K/uL Lymph # (Auto) 1.81 (1.20-3.40) K/uL [place] # (Auto) 0.90 H (0.11-0.59) K/uL Eos # (Auto) 0.06 (0.00-0.50) K/uL Baso # (Auto) 0.07 (0.00-0.20) K/uL Immature Gran # (Auto) 0.07 (0.01-0.20) K/uL PT 10.2 (9.0-12.0) Seconds INR 0.9 (0.9-1.1) Sodium 140 (136-145) mmol/L Potassium 4.2 (3.5-5.1) mmol/L Chloride 103 (98-107) mmol/L Carbon Dioxide 27 (21-32) mmol/L Anion Gap 10 (3-11) BUN 30 H (6-23) mg/dl Creatinine 1.64 H (0.6-1.2) mg/dl Est Cr Clr Drug Dosing 32.7 ml/min eGFR 32.25 BUN/Creatinine Ratio 18.3 (10-20) Glucose 145 H (70-99(Fasting)) mg/dl Calcium 9.3 (8.6-10.3) mg/dl Magnesium 1.8 (1.7-2.4) mg/dl Total Bilirubin 0.8 (0.2-1.0) mg/dl AST 52 H (13-39) U/L ALT 16 (7-52) U/L Alkaline Phosphatase 46 (34-104) U/L Troponin I High Sens 14.3 H (0-14) pg/ml Total Protein 6.8 (6.0-8.3) gm/dl Albumin 4.3 (3.4-5.0) gm/dl Globulin 2.5 (2.5-4.0) gm/dl Albumin/Globulin Ratio 1.7 (0.9-2) Lipase 30 (11-82) U/L Urine Color Yellow Urine Appearance Clear (Clear) Urine pH 5.5 (4.5-7.5) Ur Specific [place] 1.018 (1.000-1.030) Urine Protein 1+ H (Negative) Urine Glucose (UA) Negative (Negative) Urine Ketones Negative (Negative) Urine Blood Negative (Negative) Urine Nitrite Negative (Negative) Urine Bilirubin Negative (Negative) Urine Urobilinogen Negative (Negative) Ur Leukocyte Esterase Trace H (Negative) Urine WBC (Auto) 0-5 (0-5) /hpf Urine RBC (Auto) 0-2 (0-2) /hpf U Hyaline Cast (Auto) 3-5 H (0-2) /lpf U Epithel Cells (Auto) 0-2 (0-2) /hpf Urine Bacteria (Auto) None Seen (None Seen) PG Care Time/CCT Total # of Minutes Spent Total Time Spent with Patient: Total time spent is greater than 50% in coordination of care (as documented) at patient's floor/unit and/or counseling patient: Coding Level of Care Code 75856 INT INP/OBS CARE 2/55MIN Diagnoses Abdominal distension R14.0
--- NOTE | 2024-07-11 15:46 | History & Physical Report ---
Date of Service July 11, 2024 Assessment & Plan (1) Colonic obstruction: Plan: Colonic obstruction CTA/P:1. Moderately distended ascending colon, transverse colon and descending colon with apparent transition point within the proximal sigmoid colon. Mild pericolonic stranding. No pneumoperitoneum. The findings are suspicious for a colonic obstruction. Large amount of stool throughout the colon. Sigmoid colon wall thickening at site of transition is nonspecific. An underlying neoplasm cannot be excluded. However, a benign stricture or circular muscular hypertrophy in the setting of sigmoid diverticulosis could appear similar. GI consultation is recommended. 2. Colonic diverticulosis. No convincing evidence for acute diverticulitis. 3. Suboptimal evaluation of the abdomen and pelvis given lack of IV contrast. GI consulted. Patient underwent unprepped flex sigmoidoscopy. Evaluation was limited by stool. Discussed with GI. Recommended for repeat KUB tonight to see if contrast is able to progress past transition point. Recommended tapwater enemas overnight which have been ordered. Anticipate repeat flex sigmoidoscopy in the morning. - General Surgery consulted. Patient recommended for endoscopic/GI evaluation prior to surgical evaluation. No signs of acute abdomen on exam Strict n.p.o. due to colonic obstruction with transition point. DDx includes stricture, hypertrophy, and malignancy. IVF while n.p.o. Atenolol converted to IV metoprolol as noted, hydrocortisone started to prevent a eye due to chronic underlying prednisone use. Other medications held while NPO. Recommended NGT to patient distention, nausea, dry heaving. She does have marked gaseous distention and some nausea however wishes to not have a NGT placed. If any recurrent/worsening nausea or any vomiting develops then she agrees to have NGT placed,, place NGT to LIS. Zofran, IV Tylenol, morphine on-call for nausea and pain control (2) CKD (chronic kidney disease) stage 3, GFR 30-59 ml/min: Plan: CKD 3 Baseline creatinine approximately 1.41.5 Admitting creatinine 1.64, prerenal with obstruction IV FM Trend PRP daily Valsartan/hydrochlorothiazide held (3) Lupus nephritis: Plan: Lupus with nephropathy Patient is with lupus on chronic prednisone 5 mg daily. Is at high risk for adrenal insufficiency. Will convert prednisone to hydrocortisone 20 mg every 6 hours. If signs of hypotension/adrenal insufficiency develop then give 100-200 mg bolus and increased to 50 g every 6 hours and obtain cortisol level Mycophenolate held while n.p.o. PRP daily, IVF, as noted (4) nursing home (current) use of systemic steroids: (5) Hypothyroidism: Plan: Hypothyroidism Elevated TSH recently, continue Synthroid 137 mcg daily. Defer recheck in the setting of acute illness will need outpatient TSH recheck in about 6 months. No acute change in management. If n.p.o. for prolonged period/greater than 72 hours convert to IV at 30% dose reduction (6) Hypertension: Plan: Hypertension ValsartanHCTZ held pending surgical evaluation Atenolol held while NPO. Metoprolol 2.5 mg every 6 hours added to prevent bet a-dylan withdrawal. (7) Troponin level elevated: Plan: Troponin elevation EKG without territorial ischemia or acute change compared to prior. Troponin minimally elevated at 14.3, repeat pending. Clinically without any chest pain suspect mild from contraction/demand ischemia will monitor on PCU both for mild troponin elevation and need for IV beta-blockers. Plan Chronic stable issues: Hyperlipidemia: Atorvastatin continued Prediabetes: BSG checks daily. If persistently above goal of 180 then add basal bolus SSI at that time Anemia: Chronic, macrocytic, stable. Trend hemoglobin daily Osteopenia: On was risedronate as outpatient. Continue calcium/vitamin D once able to tolerate p.o. DVT prophylaxis: SCDs. No immediate surgical intervention is anticipated and possible underlying malignancy, heparin subcu x 1 ordered. Lovenox deferred due to renal dysfunction CODE STATUS: DNR/DNI Disposition: PCU Diet: Strict NPO, IVF M History of Present Illness Primary Care Provider: Laurence Bryan MD Gillian is a 78-year-old female with past medical history of CKD 3, hypothyroidism, hypertension, lupus on long-term steroids/hydroxychloroquine presents emergency department for worsening abdominal distention and nausea/vomiting. GI was consulted on admission and on review of CT was noted to have an area of narrowing/transition point at the proximal sigmoid colon. This was also discussed with general surgery. Was recommended for endoscopic evaluation prior to surgical intervention. Gillian is seen in the endoscopy suite post flex sig. She reports that she was otherwise well until yesterday when she started to feel some distention in her abdomen and like her colon was blocked. She reports she does have a distant history of a GI blockage in the 1970s which was treated with an enema but never required surgery. Her only surgery has been tubal ligation, she denies any other history of abdominal surgeries. 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 Denies any other surgeries. She reports she has not had no fevers chills or sweats. She had her last bowel movement yesterday at 4 PM with some constipation since, did have some diarrhea earlier in June. She is still passing flatus, and did pass some gas last night She reports she feels very nauseous and has been belching and dry heaving. Denies vomiting/hematemesis. Feels her abdomen is distended but nontender to her at time of bedside assessment. She denies history of cardiac and lung disease. Does have history of CKD. Denies history of blood clots. Denies history of bleeding. Denies family history of colorectal cancer. She did have a colonoscopy in 2019 which reportedly showed diverticulosis and narrowing of the colon associated with diverticular disease. Medical History: Reviewed Medications: Reviewed Surgical History: Reviewed Family history: Reviewed Allergies: Reviewed Social History: Denies tobacco use. Evening glass of wine with dinner, none recently. Denies withdrawal sx Code Status: DNR/DNI, discussed w pt at bedside Allergies Allergy/AdvReac Type Severity Reaction Status Date / Time Iodinated Contrast Media AdvReac Intermediate CONTRAST Verified 07/11/24 15:29 DYE CAUSES RENAL PROBLEMS PER DR CESAR Home Medications Medication Instructions Recorded Confirmed Type calcium ER 600 mg (as carb,cit)-D3 1 tab PO QAM 03/29/20 07/11/24 History 12.5 mcg (500 unit) tablet, ext.rel (Citracal-D3 Slow Release) cholecalciferol (vitamin D3) 25 1,000 unit PO QAM 03/29/20 07/11/24 History mcg (1,000 unit) tablet (Vitamin D3) prednisone 5 mg tablet 5 mg PO QAM 03/29/20 07/11/24 History hydroxychloroquine 200 mg tablet 200 mg PO QAM #90 tabs 05/08/20 07/11/24 Rx [facility] 1 tab PO QAM 07/30/21 07/11/24 History amoxicillin 500 mg capsule 2,000 mg (4 x 500 mg) PO ONCE #10 04/01/22 07/11/24 Rx caps risedronate 35 mg tablet (Actonel) 35 mg PO .Weekly #12 tabs 04/13/22 07/11/24 Rx valsartan 160 1 tab PO QAM #90 tabs 10/12/23 07/11/24 Rx mg-hydrochlorothiazide 25 mg tablet atenolol 25 mg tablet 25 mg PO QAM #90 tabs 11/26/23 07/11/24 Rx atorvastatin 20 mg tablet 20 mg PO QPM #90 tabs 11/26/23 07/11/24 Rx calcitriol 0.25 mcg capsule 0.25 mcg PO .COMPLEX #36 caps 11/26/23 07/11/24 Rx levothyroxine 137 mcg tablet 137 mcg PO DAILY #90 tabs 11/26/23 07/11/24 Rx mycophenolate mofetil 500 mg tablet 1,000 mg (2 x 500 mg) PO BID #360 01/25/24 07/11/24 Rx tabs Past Med/Surg History Problem List (Updated 07/11/24 @ 16:24 by Anirudh Kruger MD) Troponin level elevated Colonic obstruction Nausea & vomiting (Acute) Abdominal distension (Acute) CKD (chronic kidney disease) stage 3, GFR 30-59 ml/min Prediabetes Macrocytic anemia At risk for cardiovascular event Disc degeneration, lumbar (Acute) Hilar enlargement (Acute) Hypertension (Acute) 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 Helena Ray per patient History of radioactive iodine thyroid ablation Secondary to hyperthyroidism History of bronchitis No recent issues Systemic lupus erythematosus Surgical History (Updated 07/07/24 @ 11:20 by Laurence Bryan MD) Status post total right knee replacement Status post total left knee replacement 01/30/22 @ [facility] History of anesthesia reaction WOKE UP IN MIDDLE OF BRONCHOSCOPY Bartholin cyst removal on bilt sides History of removal of cyst benign cyst removed off left lymph node History of biopsy kidney History of bilateral tubal ligation History of colonoscopy History of tooth extraction History of tonsillectomy History of bilateral cataract extraction History of bronchoscopy d/t bronchitis "THAT WOULD NOT CLEAR">DX WITH BAD LUNG INFECTION Family History Mother Family history of diabetes mellitus Pulmonary embolism Father Family history of diabetes mellitus COPD (chronic obstructive pulmonary disease) Acute exacerbation of emphysema Grandmother (Maternal) Family history of diabetes mellitus Grandfather (Paternal) Family history of diabetes mellitus Other No family history of adverse response to anesthesia Denies family history of Myocardial infarction Breast cancer Colorectal cancer Social History Smoking Status: Never smoker Second Hand Exposure: Yes (father smoked/ smoked); Do You Dip or Chew Tobacco: No; Hx Alcohol Use: Yes Alcohol type: wine Alcohol type Comment: Wine with every evening meal Hx Substance Use: No Preferred Language: Hebrew Communication Ability: Effective Visual Impairment: No Limitations Hearing Ability: Normal 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 NAD. Cooperative. HEENT: Atraumatic, normocephalic. Vision and hearing grossly intact Skin: Right shoulder with well-healed scar/incision. Pulm: CTAB A&P. -wheezes, -rales, -rhonchi. Symmetrical chest rise. No increased work of breathing. No respiratory distress. Cardiac: RRR, -mrg. Radial pulses intact and symmetrical. Abdominal: Distended, tympanitic. Diffusely mildly tender without rebound/guarding. Hypoactive bowel sounds most diminished in lower quadrants. Results & Data Results & Data Vital Signs (Past 12 Hours) Vital Signs Temp Pulse Pulse Resp BP BP Pulse Ox 07/11/24 15:27 87 15 142/82 H 98 07/11/24 14:56 70 17 148/81 H 97 07/11/24 10:09 59 L 15 93 07/11/24 09:30 68 17 93 07/11/24 09:03 75 93 07/11/24 08:48 74 92 07/11/24 08:48 75 07/11/24 08:44 145/86 H 07/11/24 08:24 36.4 C L 79 18 137/90 95 O2 Del Method 07/11/24 15:27 Room Air 07/11/24 14:56 Room Air 07/11/24 10:09 Room Air 07/11/24 09:30 Room Air 07/11/24 09:03 Room Air 07/11/24 08:48 Room Air 07/11/24 08:48 07/11/24 08:44 07/11/24 08:24 Room Air PG Care Time/CCT Total # of Minutes Spent Total Time Spent with Patient: Total time spent is greater than 50% in coordination of care (as documented) at patient's floor/unit and/or counseling patient: Coding Level of Care Code 80518 INT INP/OBS CARE 375MIN Diagnoses Colonic obstruction K56.609 CKD (chronic kidney disease) stage 3, GFR 30-59 ml/min N18.30 Lupus nephritis 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
[2024-07-11] MEDS ORDERED: ONDANSETRON INJ 2 MG/ML 2 ML VIAL IV PRN (16:28)
[2024-07-11] MEDS ORDERED: ACETAMINOPHEN 1,000 MG/100 ML VIAL IV PRN (16:28)
[2024-07-11] MEDS ORDERED: MoRPHine SULFATE 2 MG/ML CARP IV PRN (16:28)
[2024-07-11] MEDS ORDERED: HYDROCORTISONE SOD SUCCINATE 100 MG/2 ML VIAL IV SCH (17:25)
[2024-07-11] MEDS ORDERED: HYDROCORTISONE SOD 50 MG in SYRINGE 0 ML IV SCH (18:00)
[2024-07-11] MEDS: LACTATED RINGER'S 1,000 ML IV SCH (18:12)
[2024-07-11] MEDS: METOPROLOL TARTRATE 1 MG/ML VIAL IV SCH (18:16)
[2024-07-11] MEDS: HYDROCORTISONE SOD 20 MG in SYRINGE 0 ML IV SCH (18:27)
--- NOTE | 2024-07-11 18:29 | Electrocardiogram Report ---
Test Reason : Blood Pressure : */* mmHG Vent. Rate : 70 BPM Atrial Rate : 70 BPM P-R Int : 198 ms QRS Dur : 92 ms QT Int : 418 ms P-R-T Axes : 72 11 62 degrees QTcB Int : 451 ms Normal sinus rhythm Normal ECG When compared with ECG of 17-Dec-2022 11:12, No significant change was found Confirmed by Florentin Crandall ([id number]) on 07/11/2024 6:28:53 PM Referred By: REFERRED SELF Confirmed By: Florentin Crandall
--- NOTE | 2024-07-11 18:50 | XRay Report ---
EXAM: Radiograph of the Abdomen 1 View INDICATION: Assess contrast TECHNIQUE: Frontal supine view of the abdomen/pelvis. COMPARISON: No relevant prior studies available. FINDINGS: Limitations: None. Gastrointestinal tract: Air scattered throughout non-dilated intestinal loops. Organs: Visualized organ shadows appear grossly normal. Bones/joints: Degenerative changes noted throughout the spine. No acute osseous abnormality seen. Soft tissues: Large amounts of stool throughout the prominently aerated redundant colon. Possible mild small bowel edema in the left lower quadrant. No small bowel obstruction. No enteric contrast is visualized. IMPRESSION: Large amounts of stool throughout the prominently aerated redundant colon. Possible mild small bowel edema in the left lower quadrant. No small bowel obstruction. No enteric contrast is visualized. ACT 112: Negative or not required by law. Electronically signed by Eduarda Dominguez 07-11-2024 6:50 PM
--- NOTE | 2024-07-12 08:20 | XRay Report ---
EXAM: XR KUB/Abdomen 1 view CLINICAL HISTORY: TECHNIQUE: X-ray of the KUB/abdomen done few. COMPARISON: Prior x-ray abdomen dated 07/11/2024 and ultrasound renal dated 06/03/2023. FINDINGS: Markedly distended large bowel by gas. The small bowel appears unremarkable. No air/fluid levels seen. No free air under the diaphragm. Right pelvic cavity radiopaque structure is seen. Soft tissues appear unremarkable. IMPRESSION: 1. Markedly gas-distended large bowel. Mild Interval progression since prior study. Picture may raise the possibility of ileus. 2. No air-fluid levels seen. 3. Right pelvic cavity radiopaque structure seen. CT may be advised if clinically indicated. 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 She will inform the provider. Electronically signed by Damion Ivory 07-12-2024 08:19 AM
--- NOTE | 2024-07-12 09:15 | Gastroenterology Progress Note ---
Date of Service July 12, 2024 Assessment & Plan (1) Abdominal distension: Plan 78 year old female with history of OA, CKD, lupus nephritis, HTN and others below admitted through the ED w/ abd pain, nausea and change in bowel habits imaging showing colonic distention w/ apparent transition point within the proximal sigmoid colon raising concern for a colonic obstruction. Last colon in 2019 w/ sigmoid colon diverticulosis and narrowing of the colon in association with the diverticular opening. We were asked by general surgery to provide endoscopic evaluation prior to surgical intervention. Attempt at urgent flex-sig last evening unsuccessful. She has maintained NPO status w/ enema preparation this AM for repeat flex-sig planned this AM Maintain NPO status Proceed w/ flex sig today Appreciate general surgery evaluation We appreciate assistance in the management of any serological abnormality and corrections to include: hemoglobin >7, INR <2, platelets >50,000, potassium levels >3.5 but <5.3, and sodium levels within 5 points of the reference range prior to endoscopic evaluation. Thank you for allowing us to participate in the care of this patient. Please call with any acute changes, questions or concerns. Please see addendum below with additional recommendation from my supervising physician. Admission and Anticipated Discharge Date Admission Date: July 11, 2024 Supervising Physician Co-Signing Physician Notes I examined the patient and reviewed the medical record, laboratory data and imaging studies. I agree with the assessment and plan of care as suggested by the advanced practice provider. Patient evaluated and CT scan discussed with radiology as well as with surgery we will do endoscopic evaluation and further recommendations after that Subjective Pt was seen and evaluated, chart reviewed. Feels somewhat less distended. Tolerated enemas. had some formed BMs last night and looser stool this AM. No black/bloody stools. KUB 2023: Markedly gas-distended large bowel. Mild Interval progression since prior study. Picture may raise the possibility of ileus. No air-fluid levels seen. Right pelvic cavity radiopaque structure seen. CT may be advised if clinically indicated. KUB 2023: Large amounts of stool throughout the prominently aerated redundant colon. Possible mild small bowel edema in the left lower quadrant. No small bowel obstruction. No enteric contrast is visualized. CTAP 2023: Moderately distended ascending colon, transverse colon and descending colon with apparent transition point within the proximal sigmoid colon. Mild pericolonic stranding. No pneumoperitoneum. The findings are suspicious for a colonic obstruction. Large amount of stool throughout the colon. Sigmoid colon wall thickening at site of transition is nonspecific. An underlying neoplasm cannot be excluded. However, a benign stricture or circular muscular hypertrophy in the setting of sigmoid diverticulosis could appear similar. GI consultation is recommended. Colonic diverticulosis. No convincing evidence for acute diverticulitis. Colonoscopy 2020: - Moderate diverticulosis in the sigmoid colon. There was narrowing of the colon in association with the diverticular opening. - Non-bleeding internal hemorrhoids. - No specimens collected. Review of Systems Review of Systems: All other findings negative except as noted in HPI. Physical Exam Constitutional: WD/WN, vitals as above Respiratory: normal respiratory effort, lungs clear to auscultation Cardiovascular: Rate/Rhythm: regular rate and regular rhythm Gastrointestinal (Abdomen): Inspection/Auscultation: + abdomen distended Percussion/Palpation: + abdomen tender; no guarding and abdomen not rigid hypoactive bowel sounds Skin: no rashes, warm and dry Results & Data Results & Data Vital Signs (Past 12 Hours) Vital Signs Temp Pulse Pulse Resp BP BP Pulse Ox 07/12/24 07:38 36.9 C 72 18 147/84 H 96 07/12/24 07:05 69 07/12/24 06:22 70 134/72 07/12/24 06:00 68 138/78 07/12/24 04:26 36.8 C 68 18 138/78 94 07/12/24 01:29 87 07/12/24 00:52 80 133/84 07/11/24 23:11 36.9 C 80 17 133/84 93 07/11/24 22:40 83 O2 Del Method 07/12/24 07:38 Room Air 07/12/24 07:05 07/12/24 06:22 07/12/24 06:00 07/12/24 04:26 Room Air 07/12/24 01:29 07/12/24 00:52 07/11/24 23:11 Room Air 07/11/24 22:40 Laboratory Results 07/11/24 07/11/24 07/11/24 Range/Units 17:56 11:05 08:40 WBC 12.15 H (4.8-10.8) K/ul RBC 4.09 L (4.20-5.40) M/uL Hgb 12.5 (12.0-16.0) g/dl Hct 39.8 (37.0-47.0) % MCV 97.3 (80.0-100.0) fL MCH 30.6 (25.0-34.0) pg MCHC 31.4 L (32.0-36.0) g/dL RDW Std Deviation 50.4 H (36.4-46.3) fL RDW Coeff of [place] 14.1 (11.5-14.5) % Plt Count 313 (130-400) K/uL MPV 11.2 (9.4-12.4) fL Immature Gran % (Auto) 0.6 % Neut % (Auto) 76.0 % Lymph % (Auto) 14.9 % [place] % (Auto) 7.4 % Eos % (Auto) 0.5 % Baso % (Auto) 0.6 % Neut # (Auto) 9.24 H (1.40-6.50) K/uL Lymph # (Auto) 1.81 (1.20-3.40) K/uL [place] # (Auto) 0.90 H (0.11-0.59) K/uL Eos # (Auto) 0.06 (0.00-0.50) K/uL Baso # (Auto) 0.07 (0.00-0.20) K/uL Immature Gran # (Auto) 0.07 (0.01-0.20) K/uL PT 10.2 (9.0-12.0) Seconds INR 0.9 (0.9-1.1) Sodium 140 (136-145) mmol/L Potassium 4.2 (3.5-5.1) mmol/L Chloride 103 (98-107) mmol/L Carbon Dioxide 27 (21-32) mmol/L Anion Gap 10 (3-11) BUN 30 H (6-23) mg/dl Creatinine 1.64 H (0.6-1.2) mg/dl Est Cr Clr Drug Dosing 32.7 ml/min eGFR 32.25 BUN/Creatinine Ratio 18.3 (10-20) Glucose 145 H (70-99(Fasting)) mg/dl Calcium 9.3 (8.6-10.3) mg/dl Magnesium 1.8 (1.7-2.4) mg/dl Total Bilirubin 0.8 (0.2-1.0) mg/dl AST 52 H (13-39) U/L ALT 16 (7-52) U/L Alkaline Phosphatase 46 (34-104) U/L Troponin I High Sens 14.0 14.3 H (0-14) pg/ml Total Protein 6.8 (6.0-8.3) gm/dl Albumin 4.3 (3.4-5.0) gm/dl Globulin 2.5 (2.5-4.0) gm/dl Albumin/Globulin Ratio 1.7 (0.9-2) Lipase 30 (11-82) U/L Urine Color Yellow Urine Appearance Clear (Clear) Urine pH 5.5 (4.5-7.5) Ur Specific [place] 1.018 (1.000-1.030) Urine Protein 1+ H (Negative) Urine Glucose (UA) Negative (Negative) Urine Ketones Negative (Negative) Urine Blood Negative (Negative) Urine Nitrite Negative (Negative) Urine Bilirubin Negative (Negative) Urine Urobilinogen Negative (Negative) Ur Leukocyte Esterase Trace H (Negative) Urine WBC (Auto) 0-5 (0-5) /hpf Urine RBC (Auto) 0-2 (0-2) /hpf U Hyaline Cast (Auto) 3-5 H (0-2) /lpf U Epithel Cells (Auto) 0-2 (0-2) /hpf Urine Bacteria (Auto) None Seen (None Seen) PG Care Time/CCT Total # of Minutes Spent Total Time Spent with Patient: Total time spent is greater than 50% in coordination of care (as documented) at patient's floor/unit and/or counseling patient: Coding Level of Care Code None Diagnoses Abdominal distension R14.0
--- NOTE | 2024-07-12 09:18 | Anesthesiology Consultation ---
Date of Service July 12, 2024 Assessment & Plan Chart Review Chart Review: Acceptable Risk for Surgery Consults Requested none ASA ASA3 Proposed Anesthesia Anesthesia Type: MAC Risk / Benefits Reviewed With: PT / POA / Parent / Guardian, Accepts Plan and Informed Consent Obtained History Surgery Operation Date: 07/11/24 16:45 Proposed Procedures p Flexible Sigmoidoscopy Aidan Bermudez MD Operation Date: 07/12/24 17:25 Proposed Procedures p Flexible Sigmoidoscopy Aidan Bermudez MD Height/Weight Height: 5 ft 7 in Weight: 83.1 kg Allergies Allergy/AdvReac Type Severity Reaction Status Date / Time Iodinated Contrast Media AdvReac Intermediate CONTRAST Verified 07/11/24 15:29 DYE CAUSES RENAL PROBLEMS PER DR CESAR Medications Home Medications Medication Instructions Recorded Confirmed Last Taken calcium ER 600 mg (as carb,cit)-D3 1 tab PO QAM 03/29/20 07/11/24 07/10/24 12.5 mcg (500 unit) tablet, ext.rel (Citracal-D3 Slow Release) cholecalciferol (vitamin D3) 25 1,000 unit PO QAM 03/29/20 07/11/24 07/10/24 mcg (1,000 unit) tablet (Vitamin D3) prednisone 5 mg tablet 5 mg PO QAM 03/29/20 07/11/24 07/10/24 hydroxychloroquine 200 mg tablet 200 mg PO QAM #90 tabs 05/08/20 07/11/24 07/10/24 [facility] 1 tab PO QAM 07/30/21 07/11/24 07/10/24 amoxicillin 500 mg capsule 2,000 mg (4 x 500 mg) PO ONCE #10 04/01/22 07/11/24 Unknown caps risedronate 35 mg tablet (Actonel) 35 mg PO .Weekly #12 tabs 04/13/22 07/11/24 07/06/24 valsartan 160 1 tab PO QAM #90 tabs 10/12/23 07/11/24 07/10/24 mg-hydrochlorothiazide 25 mg tablet atenolol 25 mg tablet 25 mg PO QAM #90 tabs 11/26/23 07/11/24 07/10/24 atorvastatin 20 mg tablet 20 mg PO QPM #90 tabs 11/26/23 07/11/24 07/10/24 calcitriol 0.25 mcg capsule 0.25 mcg PO .COMPLEX #36 caps 11/26/23 07/11/24 07/10/24 levothyroxine 137 mcg tablet 137 mcg PO DAILY #90 tabs 11/26/23 07/11/24 07/10/24 mycophenolate mofetil 500 mg tablet 1,000 mg (2 x 500 mg) PO BID #360 01/25/24 07/11/24 07/10/24 tabs Active Medications Generic Name Dose Route Start Last Admin Trade Name Fawadq PRN Reason Stop Dose Admin Lactated Ringer's 1,000 mls @ 80 mls/hr 07/11/24 17:45 07/12/24 08:50 Lr IV 07/12/24 18:44 Infused .[id number] TIMA Infusion Metoprolol Tartrate 2.5 mg 07/11/24 18:00 07/12/24 06:00 Metoprolol Tartrate 1 Mg/Ml Vial IV 08/10/24 17:59 2.5 mg Q6 TIMA Administration NPO Date Last Intake of Fluids: 07/11/24 Time Last Intake of Fluids: 11:15 Date Last Intake of Solids: 07/10/24 Time Last Intake of Solids: 19:00 Past Medical History Medical History (Updated 07/12/24 @ 09:14 by Elizabeth Armstrong DO) CKD (chronic kidney disease) stage 3, GFR 30-59 ml/min Macrocytic anemia Prediabetes At risk for cardiovascular event Disc degeneration, lumbar Hilar enlargement Hypertension Hypothyroidism correction (current) use of systemic steroids Daily Prednisone 5mg (taken for lupus and RA per patient) Lupus nephritis Peripheral neuropathy Peripheral neuropathy, hereditary/idiopathic Proteinuria Rheumatoid arthritis Follows with rheum - Dr. Helena Ray per patient History of radioactive iodine thyroid ablation Secondary to hyperthyroidism History of bronchitis No recent issues Systemic lupus erythematosus Exercise / Class Metabolic Activity II 4-5 Yardwork/Stairs/Walk up hill Past Family History Family History Mother Family history of diabetes mellitus Pulmonary embolism Father Family history of diabetes mellitus COPD (chronic obstructive pulmonary disease) Acute exacerbation of emphysema Grandmother (Maternal) Family history of diabetes mellitus Grandfather (Paternal) Family history of diabetes mellitus Other No family history of adverse response to anesthesia Denies family history of Myocardial infarction Breast cancer Colorectal cancer Past Surgical History Surgical History Status post total right knee replacement Status post total left knee replacement 01/30/22 @ [facility] History of anesthesia reaction WOKE UP IN MIDDLE OF BRONCHOSCOPY Bartholin cyst removal on bilt sides History of removal of cyst benign cyst removed off left lymph node History of biopsy kidney History of bilateral tubal ligation History of colonoscopy History of tooth extraction History of tonsillectomy History of bilateral cataract extraction History of bronchoscopy d/t bronchitis "THAT WOULD NOT CLEAR">DX WITH BAD LUNG INFECTION Past Anesthesia History No Hx of Anesthesia Complications and No Family Hx of Anesthesia Complications History of PONV No Hx of PONV and No Hx of Motion Sickness Social History Smoking Status: Never smoker Do You Dip or Chew Tobacco: No Hx Alcohol Use: Yes Alcohol type: wine alcohol intake frequency: 0-2 drinks per day Hx Substance Use: No substance use type: does not use Physical Exam Vital Signs Last Vital Signs Temp 36.9 C 07/12/24 07:38 Pulse 72 07/12/24 07:38 Resp 18 07/12/24 07:38 BP 147/84 H 07/12/24 07:38 Pulse Ox 96 07/12/24 07:38 O2 Del Method Room Air 07/12/24 07:38 ENMT Mouth: + small oral opening; no TMJ abnormality Thyromental Distance: > or= 3.5 Finger Breadths Mallampati Class: II Neck normal visual inspection and trachea midline; neck extension not limited Respiratory normal respiratory effort Auscultation: lungs clear to auscultation bilaterally Cardiovascular Rate/Rhythm: regular rate and regular rhythm Heart Sounds: no murmur Musculoskeletal Spine: normal cervical ROM Extremities: full ROM of extremities Neurologic moves all extremities Psychiatric Orientation: alert and oriented x 3 Testing Laboratory Results 07/11/24 08:40 07/11/24 08:40 PT 10.2 Seconds (9.0-12.0) 07/11/24 08:40 INR 0.9 (0.9-1.1) 07/11/24 08:40 Urine Color Yellow 07/11/24 11:05 Urine Appearance Clear (Clear) 07/11/24 11:05 Urine pH 5.5 (4.5-7.5) 07/11/24 11:05 Ur Specific [place] 1.018 (1.000-1.030) 07/11/24 11:05 Urine Protein 1+ (Negative) H 07/11/24 11:05 Urine Glucose (UA) Negative (Negative) 07/11/24 11:05 Urine Ketones Negative (Negative) 07/11/24 11:05 Urine Nitrite Negative (Negative) 07/11/24 11:05 Ur Leukocyte Esterase Trace (Negative) H 07/11/24 11:05 Urine WBC (Auto) 0-5 /hpf (0-5) 07/11/24 11:05 Urine RBC (Auto) 0-2 /hpf (0-2) 07/11/24 11:05 U Hyaline Cast (Auto) 3-5 /lpf (0-2) H 07/11/24 11:05 U Epithel Cells (Auto) 0-2 /hpf (0-2) 07/11/24 11:05 Urine Bacteria (Auto) None Seen (None Seen) 07/11/24 11:05 Electrocardiogram Date: 07/11/24 Findings: + NSR @ (70) Other Testing c spone xr 2021 noted
--- NOTE | 2024-07-12 10:06 | GI REPORT ---
[facility] Patient: NICHOLE LEARY : 1945 Sex at : Female Age: 78 Years Procedure: Flexible Sigmoidoscopy Date: 07/12/2024 Attending Physician: Heri Bermudez MD Referring MD: Lasha Rios Indications: - Lesion in sigmoid on CT scan Medications: - Monitored Anesthesia Care Complications: - No immediate complications. Estimated Blood Loss: - Estimated blood loss: None. Procedure: - The pediatric colonoscope was introduced through the anus and advanced to the descending colon. - The flexible sigmoidoscopy was accomplished with ease. - The patient tolerated the procedure well. - The quality of the bowel preparation was fair. Findings: - Fair to poor prep extensively washed. Diverticula in descending and sigmoid colon No lesion seen Impression: - Preparation of the colon was fair. - Fair to poor prep extensively washed. Diverticula in descending and sigmoid colon No lesion seen - No specimens collected. Recommendation: - Follow up KUB. Will schedule complete colonoscopy Procedure Code(s): - 89413, Sigmoidoscopy, flexible; diagnostic, including collection of specimen(s) by brushing or washing, when performed (separate procedure) CPT(R) - 2023 copyright [employer] [place] [employer]. All Rights Reserved. The CPT codes, CCI edits and ICD codes generated are intended as suggestions and were generated based on input data. These codes are preliminary and upon ladle watcher review may be revised to meet current compliance and payer requirements. The provider is responsible for the final determination of appropriate codes, and modifiers. Heri Bermudez MD This document has been electronically signed. Note Initiated:07/12/2024 Note Completed:07/12/2024 10:05 AM [id number]
--- NOTE | 2024-07-12 10:35 | Communication Note ---
Date of Service: July 12, 2024 S/P FlexSig today. TigerText sent to general surgery team to update. We can attempt a full colonoscopy tomorrow. Miralax/dulcolax bowel prep. Tap water enemas today. NPO after midnight for attempt at colonoscopy 07/13/24. Discussed with general surgery PA who is recommending a transfer. Will update primary team. GI will be available to attempt colonoscopy if needed. Thank you for allowing us to participate in the care of this patient. Please call with any acute changes, questions or concerns. Please see addendum below with additional recommendation from my supervising physician.
--- NOTE | 2024-07-12 11:14 | Anesthesiology Progress Note ---
Date of Service July 12, 2024 Anesthesia Post Procedure Vital Signs Vital Signs: Temp Pulse Pulse Pulse Resp BP BP 07/12/24 11:06 36.4 C L 62 17 07/12/24 10:28 64 16 155/64 H 07/12/24 10:17 65 16 141/69 H 07/12/24 10:02 68 16 138/86 07/12/24 09:09 36.7 C 68 16 148/81 H 07/12/24 07:38 36.9 C 72 18 147/84 H 07/12/24 07:05 69 07/12/24 06:22 70 134/72 07/12/24 06:00 68 138/78 07/12/24 04:26 36.8 C 68 18 138/78 07/12/24 01:29 87 07/12/24 00:52 80 133/84 07/11/24 23:11 36.9 C 80 17 133/84 07/11/24 22:40 83 07/11/24 19:35 77 133/76 07/11/24 19:27 36.7 C 77 18 133/76 07/11/24 18:45 65 07/11/24 17:10 36.8 C 72 18 153/84 H 07/11/24 15:58 71 20 160/86 H 07/11/24 15:31 36.6 C 72 16 152/105 H 07/11/24 15:27 87 15 142/82 H 07/11/24 14:56 70 17 148/81 H BP Pulse Ox O2 Del Method 07/12/24 11:06 151/80 H 94 Room Air 07/12/24 10:28 94 Room Air 07/12/24 10:17 96 Room Air 07/12/24 10:02 97 Room Air 07/12/24 09:09 93 Room Air 07/12/24 07:38 96 Room Air 07/12/24 07:05 07/12/24 06:22 07/12/24 06:00 07/12/24 04:26 94 Room Air 07/12/24 01:29 07/12/24 00:52 07/11/24 23:11 93 Room Air 07/11/24 22:40 07/11/24 19:35 07/11/24 19:27 97 Room Air 07/11/24 18:45 07/11/24 17:10 93 Room Air 07/11/24 15:58 96 Room Air 07/11/24 15:31 95 Room Air 07/11/24 15:27 98 Room Air 07/11/24 14:56 97 Room Air Pain Intensity Lower Abdomen: Pain Intensity: 4 Transfer of Care Handoff Completed per policy Notes Mental Status: alert / awake / arousable Patient Amnestic to Procedure: Yes Nausea / Vomiting: adequately controlled Pain: adequately controlled Airway Patency, RR, SpO2: stable & adequate BP & HR: stable & adequate Hydration State: stable & adequate Anesthetic Complications: no major complications apparent and Pt Satisfied with anesthetic care
[2024-07-12 11:26] LABS: BUN Creatinine Ratio 19.6 (10-20); Calcium 8.3 mg/dl (8.6-10.3); Creatinine Clr Calc Pharmacy 37.1 ml/min; Potassium 3.4 mmol/L (3.5-5.1)
[2024-07-12 11:34] LABS: Basophils # (auto) 0.03 K/uL (0.00-0.20); Basophils % (auto) 0.2 %; Eosinophils # (auto) 0.01 K/uL (0.00-0.50); Eosinophils % (auto) 0.1 %; Hematocrit (blood only) 38.9 % (37.0-47.0); Hemoglobin 12.2 g/dl (12.0-16.0); Immature Granulocytes # (auto) 0.06 K/uL (0.01-0.20); Immature Granulocytes % (auto) 0.4 %; Lymphocytes # (auto) 1.21 K/uL (1.20-3.40); Lymphocytes % (auto) 8.7 %; Mean Corpuscular Hemoglobin 31.2 pg (25.0-34.0); Mean Corpuscular Hgb Conc 31.4 g/dL (32.0-36.0); Mean Corpuscular Volume 99.5 fL (80.0-100.0); Mean Platelet Volume 11.5 fL (9.4-12.4); Monocytes # (auto) 0.97 K/uL (0.11-0.59); Neutrophils % (auto) 83.6 %; Platelet Count 314 K/uL (130-400); RDW Standard Deviation 50.7 fL (36.4-46.3); Red Blood Count 3.91 M/uL (4.20-5.40); White Blood Count 13.88 K/ul (4.8-10.8)
--- NOTE | 2024-07-12 12:01 | Hospitalist Progress Note ---
Date of Service July 12, 2024 Assessment & Plan (1) Colonic obstruction: Plan: Colonic obstruction suggested by CT scan in the descending colon. Flexible sigmoidoscopy done today, July 12, failed to reveal any obstruction. She needs a colonoscopy but this cannot be done in a timely fashion at this institution due to the holiday. She agrees to NG tube placement for decompression and transfer to [facility] for further care (2) CKD (chronic kidney disease) stage 3, GFR 30-59 ml/min: Plan: Mild acute on chronic kidney disease. Creatinine slightly elevated at 1.6 on admission. Monitor intake and output. Serial labs (3) Lupus nephritis: Plan: Steroid-dependent. Currently on intravenous hydrocortisone. Mycophenolate is on hold hold (4) Hypothyroidism: Plan: Stable. Continue current thyroid replacement when taking p.o. (5) Hypertension: Plan: Currently on intravenous metoprolol scheduled dosing. Atenolol and valsartan/HCTZ on hold . (6) Troponin level elevated: Plan: No evidence of acute coronary syndrome. No chest pain. Plan Transfer to [facility] for further care when bed is available Admission and Anticipated Discharge Date Admission Date: July 11, 2024 Subjective Alert and oriented. Case discussed with gastroenterology. Flexible sigmoidoscopy was completed today, July 12, with no significant findings. She needs a complete colonoscopy which due to the holiday cannot be done here. She will need to be transferred to [facility]. If she needs surgical intervention, they have a colorectal surgeon available which is not available here. She agrees to NG tube placement for decompression Review of Systems 2 Review of Systems: Constitutionalno fever or chills ENTno blurred vision, no double vision, no epistaxis, no sore throat Respiratoryno cough, no wheezing, no shortness of breath Cardiacno palpitations, no chest pain, no syncope GIintermittent nausea. No vomiting. Abdominal distention. No bowel movements GUno urinary retention, no urinary incontinence, no dysuria, no hematuria Musculoskeletalno joint pain, no muscle tenderness Skinno bruising, no rashes, no pruritus Neurono isolated weakness, no paresthesia, no weakness Psychno depression, no anxiety Physical Exam 2 Physical Exam: General-alert and oriented x3, no fever, no chills HEENT-head atraumatic and normocephalic, pupils equal and reactive to light, extraocular muscles intact Neck-no lymphadenopathy or thyromegaly, trachea midline Chest-clear to auscultation. No rales, wheezing or rhonchi Cardiac-regular rate and rhythm, normal S1 and S2 Abdomen-distended. Bowel sounds are hypoactive. Diffuse mild tenderness. No rebound or guarding. Extremities-no cyanosis, clubbing, or edema Neuro-cranial nerves II through XII intact, motor and sensory function within normal limits, strength symmetrical, no focal deficits Psych-normal affect, normal mood Results & Data Results & Data Vital Signs (Past 12 Hours) Vital Signs Temp Pulse Pulse Resp BP BP BP 07/12/24 11:06 36.4 C L 62 17 151/80 H 07/12/24 10:28 64 16 155/64 H 07/12/24 10:17 65 16 141/69 H 07/12/24 10:02 68 16 138/86 07/12/24 09:09 36.7 C 68 16 148/81 H 07/12/24 07:38 36.9 C 72 18 147/84 H 07/12/24 07:05 69 07/12/24 06:22 70 134/72 07/12/24 06:00 68 138/78 07/12/24 04:26 36.8 C 68 18 138/78 07/12/24 01:29 87 07/12/24 00:52 80 133/84 Pulse Ox O2 Del Method 07/12/24 11:06 94 Room Air 07/12/24 10:28 94 Room Air 07/12/24 10:17 96 Room Air 07/12/24 10:02 97 Room Air 07/12/24 09:09 93 Room Air 07/12/24 07:38 96 Room Air 07/12/24 07:05 07/12/24 06:22 07/12/24 06:00 07/12/24 04:26 94 Room Air 07/12/24 01:29 07/12/24 00:52 Laboratory Results 07/12/24 10:57 07/12/24 10:57 PG Care Time/CCT Total # of Minutes Spent Total Time Spent with Patient: Total time spent is greater than 50% in coordination of care (as documented) at patient's floor/unit and/or counseling patient: Coding Level of Care Code 58877 SUB INP/OBS CARE 3/50MIN Diagnoses Colonic obstruction K56.609 CKD (chronic kidney disease) stage 3, GFR 30-59 ml/min N18.30 Lupus nephritis M32.14 Hypothyroidism E03.9 Hypertension I10 Troponin level elevated R79.89
[2024-07-12] MEDS: LIDOCAINE 2% 2 ML VIAL/AMP(20MG/ML) INFIL ONE (12:22)
[2024-07-12] MEDS: PROPOFOL IV EMULSION 10 MG/ML 20 ML VIAL IV ONE (12:22)
[2024-07-12] MEDS: LIDOCAINE VISCOUS 2% 15 ML UDC MT ONE (12:29)
[2024-07-12] MEDS: LIDOCAINE 2% JELLY 5 ML TUBE EXT ONE (13:11)
--- NOTE | 2024-07-12 13:20 | Communication Note ---
Date of Service: July 12, 2024 Patient not seen. Patient was discussed with Hospitalist, Dr. Rios ,and GI CORPORATE RECEPTIONISTMIRNA Ott . Unable to do flex sig 07/11 and 07/12. Per GI, can attempt full colonoscopy tomorrow however Dr. Lino unable to do colonic stent placement. Discussed with GI and hospitalist, given failed attempts x 2, would recommend transfer to tertiary center for colonoscopy with intent to stent if high grade stricture seen/vs large mass in order for patient to be prepped and undergo one stage procedure to avoid Bruce's and colostomy formation.
--- NOTE | 2024-07-12 13:42 | Communication Note ---
Date of Service: July 12, 2024 Updated from primary team, Dr. Rios. [facility] not able to provide endoscopic intervention until Wednesday. We can attempt additional tap-water enemas tonight. A ttempt bowel prep and maintain NPO status aftermidnight. We will plan for a colonoscopy tomorrow pending OR availability w/ Dr. Bermudez.
[2024-07-12] MEDS: HYDROCORTISONE SOD 25 MG in SYRINGE 0 ML IV SCH (14:56)
--- NOTE | 2024-07-12 15:24 | XRay Report ---
KUB CLINICAL HISTORY: NG tube placement COMPARISON STUDY: CT of the abdomen and pelvis July 11, 2024. KUB performed earlier today. FINDINGS: The tip of the nasogastric tube projects over the body of the stomach. Dilatation of visual ized portions of the colon is again noted. Although sensitivity is diminished on supine exam, there i s no evidence for free air. There is a possible small left pleural effusion. IMPRESSION: 1. Tip of nasogastric tube projects over the body of the stomach. 2. Persistent colonic dilatation. ACT 112: Negative or not required by law. Electronically signed by: Seun Suggs M.D. 07/12/2024 3:23 PM
[2024-07-12] MEDS: LAVAGE SOLUTION 4000ML PO SCH (15:58)
[2024-07-12] MEDS: NSS + 20MEQ KCL 20 MEQ/1,000 ML BAG IV SCH (23:39)
[2024-07-13 06:44] LABS: Basophils # (auto) 0.03 K/uL (0.00-0.20); Basophils % (auto) 0.2 %; Hematocrit (blood only) 35.2 % (37.0-47.0); Hemoglobin 11.2 g/dl (12.0-16.0); Immature Granulocytes # (auto) 0.05 K/uL (0.01-0.20); Immature Granulocytes % (auto) 0.4 %; Lymphocytes # (auto) 1.19 K/uL (1.20-3.40); Mean Corpuscular Hemoglobin 30.8 pg (25.0-34.0); Mean Corpuscular Hgb Conc 31.8 g/dL (32.0-36.0); Mean Corpuscular Volume 96.7 fL (80.0-100.0); Mean Platelet Volume 11.4 fL (9.4-12.4); Neutrophils # (auto) 10.79 K/uL (1.40-6.50); Neutrophils % (auto) 81.4 %; Platelet Count 279 K/uL (130-400); Red Blood Count 3.64 M/uL (4.20-5.40); White Blood Count 13.26 K/ul (4.8-10.8)
[2024-07-13 07:03] LABS: BUN Creatinine Ratio 27.2 (10-20); Calcium 8.1 mg/dl (8.6-10.3); Creatinine Clr Calc Pharmacy 42.7 ml/min; Potassium 3.3 mmol/L (3.5-5.1)
--- NOTE | 2024-07-13 07:28 | Anesthesiology Consultation ---
Date of Service July 13, 2024 Assessment & Plan Chart Review Chart Review: Acceptable Risk for Surgery and Patient NOT seen in Pre Admission Testing Consults Requested none History Surgery Operation Date: 07/11/24 16:45 Proposed Procedures p Flexible Sigmoidoscopy Aidan Bermudez MD Operation Date: 07/12/24 17:25 Proposed Procedures p Flexible Sigmoidoscopy Aidan Bermudez MD Operation Date: 07/13/24 07:30 Proposed Procedures p Colonoscopy - Heri Bermudez MD Height/Weight Height: 5 ft 7 in Weight: 84.1 kg Allergies Allergy/AdvReac Type Severity Reaction Status Date / Time Iodinated Contrast Media AdvReac Intermediate CONTRAST Verified 07/11/24 15:29 DYE CAUSES RENAL PROBLEMS PER DR CESAR Medications Home Medications Medication Instructions Recorded Confirmed Last Taken calcium ER 600 mg (as carb,cit)-D3 1 tab PO QAM 03/29/20 07/11/24 07/10/24 12.5 mcg (500 unit) tablet, ext.rel (Citracal-D3 Slow Release) cholecalciferol (vitamin D3) 25 1,000 unit PO QAM 03/29/20 07/11/24 07/10/24 mcg (1,000 unit) tablet (Vitamin D3) prednisone 5 mg tablet 5 mg PO QAM 03/29/20 07/11/24 07/10/24 hydroxychloroquine 200 mg tablet 200 mg PO QAM #90 tabs 05/08/20 07/11/24 07/10/24 [facility] 1 tab PO QAM 07/30/21 07/11/24 07/10/24 amoxicillin 500 mg capsule 2,000 mg (4 x 500 mg) PO ONCE #10 04/01/22 07/11/24 Unknown caps risedronate 35 mg tablet (Actonel) 35 mg PO .Weekly #12 tabs 04/13/22 07/11/24 07/06/24 valsartan 160 1 tab PO QAM #90 tabs 10/12/23 07/11/24 07/10/24 mg-hydrochlorothiazide 25 mg tablet atenolol 25 mg tablet 25 mg PO QAM #90 tabs 11/26/23 07/11/24 07/10/24 atorvastatin 20 mg tablet 20 mg PO QPM #90 tabs 11/26/23 07/11/24 07/10/24 calcitriol 0.25 mcg capsule 0.25 mcg PO .COMPLEX #36 caps 11/26/23 07/11/24 07/10/24 levothyroxine 137 mcg tablet 137 mcg PO DAILY #90 tabs 11/26/23 07/11/24 07/10/24 mycophenolate mofetil 500 mg tablet 1,000 mg (2 x 500 mg) PO BID #360 01/25/24 07/11/24 07/10/24 tabs Active Medications Generic Name Dose Route Start Last Admin Trade Name Freq PRN Reason Stop Dose Admin Hydrocortisone Sodium 0.5 mls @ 4 mls/min 07/12/24 14:00 07/13/24 05:23 Succinate 25 mg/ Syringe IV 08/11/24 13:59 4 mls/min Q8H TIMA Administration Potassium Chloride/Sodium Chloride 20 meq in 1,000 mls @ 80 mls/hr 07/12/24 12:30 07/12/24 23:39 Normal Saline W/20 Meq Kcl IV 07/13/24 12:29 80 mls/hr .[id number] TIMA Administration Metoprolol Tartrate 2.5 mg 07/11/24 18:00 07/13/24 05:22 Metoprolol Tartrate 1 Mg/Ml Vial IV 08/10/24 17:59 2.5 mg Q6 TIMA Administration Polyethylene Glycol/Electrolytes 8 dose 07/12/24 15:00 07/12/24 15:58 Lavage Solution 4000ml PO 08/11/24 14:59 8 dose TODAY@1500 TIMA Administration NPO Date Last Intake of Fluids: 07/11/24 Time Last Intake of Fluids: 11:15 Date Last Intake of Solids: 07/10/24 Time Last Intake of Solids: 19:00 Past Medical History Medical History (Updated 07/12/24 @ 09:14 by Elizabeth Armstrong DO) CKD (chronic kidney disease) stage 3, GFR 30-59 ml/min Macrocytic anemia Prediabetes At risk for cardiovascular event Disc degeneration, lumbar Hilar enlargement Hypertension Hypothyroidism snf (current) use of systemic steroids Daily Prednisone 5mg (taken for lupus and RA per patient) Lupus nephritis Peripheral neuropathy Peripheral neuropathy, hereditary/idiopathic Proteinuria Rheumatoid arthritis Follows with rheum - Dr. Malik Stable per patient History of radioactive iodine thyroid ablation Secondary to hyperthyroidism History of bronchitis No recent issues Systemic lupus erythematosus Past Family History Family History Mother Family history of diabetes mellitus Pulmonary embolism Father Family history of diabetes mellitus COPD (chronic obstructive pulmonary disease) Acute exacerbation of emphysema Grandmother (Maternal) Family history of diabetes mellitus Grandfather (Paternal) Family history of diabetes mellitus Other No family history of adverse response to anesthesia Denies family history of Myocardial infarction Breast cancer Colorectal cancer Past Surgical History Surgical History Status post total right knee replacement Status post total left knee replacement 01/30/22 @ [facility] History of anesthesia reaction WOKE UP IN MIDDLE OF BRONCHOSCOPY Bartholin cyst removal on bilt sides History of removal of cyst benign cyst removed off left lymph node History of biopsy kidney History of bilateral tubal ligation History of colonoscopy History of tooth extraction History of tonsillectomy History of bilateral cataract extraction History of bronchoscopy d/t bronchitis "THAT WOULD NOT CLEAR">DX WITH BAD LUNG INFECTION Social History Smoking Status: Never smoker Do You Dip or Chew Tobacco: No Hx Alcohol Use: Yes Alcohol type: wine alcohol intake frequency: 0-2 drinks per day Hx Substance Use: No substance use type: does not use Physical Exam Vital Signs Last Vital Signs Temp 36.7 C 07/13/24 04:29 Pulse 70 07/13/24 05:50 Resp 17 07/13/24 04:29 BP 158/93 H 07/13/24 05:22 Pulse Ox 94 07/13/24 04:29 O2 Del Method Room Air 07/13/24 04:29 Testing Laboratory Results 07/13/24 06:09 07/13/24 06:09 PT 10.2 Seconds (9.0-12.0) 07/11/24 08:40 INR 0.9 (0.9-1.1) 07/11/24 08:40 Urine Color Yellow 07/11/24 11:05 Urine Appearance Clear (Clear) 07/11/24 11:05 Urine pH 5.5 (4.5-7.5) 07/11/24 11:05 Ur Specific [place] 1.018 (1.000-1.030) 07/11/24 11:05 Urine Protein 1+ (Negative) H 07/11/24 11:05 Urine Glucose (UA) Negative (Negative) 07/11/24 11:05 Urine Ketones Negative (Negative) 07/11/24 11:05 Urine Nitrite Negative (Negative) 07/11/24 11:05 Ur Leukocyte Esterase Trace (Negative) H 07/11/24 11:05 Urine WBC (Auto) 0-5 /hpf (0-5) 07/11/24 11:05 Urine RBC (Auto) 0-2 /hpf (0-2) 07/11/24 11:05 U Hyaline Cast (Auto) 3-5 /lpf (0-2) H 07/11/24 11:05 U Epithel Cells (Auto) 0-2 /hpf (0-2) 07/11/24 11:05 Urine Bacteria (Auto) None Seen (None Seen) 07/11/24 11:05
[2024-07-13] MEDS ORDERED: PROPOFOL IV EMULSION 10 MG/ML 20 ML VIAL IV ONE ×2 (07:41→16:29)
[2024-07-13] MEDS ORDERED: LIDOCAINE 2% 2 ML VIAL/AMP(20MG/ML) INFIL ONE ×2 (07:42)
--- NOTE | 2024-07-13 07:53 | History & Physical Bridge Note ---
Date of Service July 13, 2024 History & Physical Bridge Note I have examined the patient, reviewed the History & Physical and in the interval since the performance of the History & Physical I have noted the following changes of clinical significance: no changes noted
--- NOTE | 2024-07-13 08:22 | Anesthesiology Progress Note ---
Date of Service July 13, 2024 Anesthesia Post Procedure Vital Signs Vital Signs: Temp Pulse Pulse Resp BP BP BP 07/13/24 05:50 70 07/13/24 05:22 76 158/93 H 07/13/24 04:29 36.7 C 90 17 147/89 H 07/13/24 00:00 77 07/12/24 23:36 73 07/12/24 23:19 36.7 C 81 18 149/93 H 07/12/24 20:11 36.7 C 82 18 148/97 H 07/12/24 18:12 76 132/78 07/12/24 15:00 36.7 C 77 18 158/100 H 07/12/24 14:51 72 07/12/24 14:10 76 130/82 07/12/24 13:36 76 17 146/88 H 07/12/24 11:06 36.4 C L 62 17 151/80 H 07/12/24 10:28 64 16 155/64 H 07/12/24 10:17 65 16 141/69 H 07/12/24 10:02 68 16 138/86 07/12/24 09:09 36.7 C 68 16 148/81 H Pulse Ox O2 Del Method 07/13/24 05:50 07/13/24 05:22 07/13/24 04:29 94 Room Air 07/13/24 00:00 07/12/24 23:36 07/12/24 23:19 93 Room Air 07/12/24 20:11 93 Room Air 07/12/24 18:12 07/12/24 15:00 93 Room Air 07/12/24 14:51 07/12/24 14:10 07/12/24 13:36 90 Room Air 07/12/24 11:06 94 Room Air 07/12/24 10:28 94 Room Air 07/12/24 10:17 96 Room Air 07/12/24 10:02 97 Room Air 07/12/24 09:09 93 Room Air Pain Intensity Lower Abdomen: Pain Intensity: 0 Transfer of Care Handoff Completed per policy Notes Mental Status: alert / awake / arousable Patient Amnestic to Procedure: Yes Nausea / Vomiting: adequately controlled Pain: adequately controlled Airway Patency, RR, SpO2: stable & adequate BP & HR: stable & adequate Hydration State: stable & adequate Anesthetic Complications: no major complications apparent and Pt Satisfied with anesthetic care
--- NOTE | 2024-07-13 08:26 | GI REPORT ---
[facility] Patient: NICHOLE LEARY : 1945 Sex at : Female Age: 78 Years Procedure: Colonoscopy Date: 07/13/2024 Attending Physician: Heri Bermudez MD Referring MD: Referred Self Indications: - Abnormal imaging Medications: - Monitored Anesthesia Care Complications: - No immediate complications. Estimated Blood Loss: - Estimated blood loss: None. Procedure: - The pediatric colonoscope was introduced through the anus and advanced to the rectum. Findings: - There was a large amount of stool in the rectum Unable to advance beyond the rectum Impression: - There was a large amount of stool in the rectum Unable to advance beyond the rectum - No specimens collected. Recommendation: - Repeat CT abdomen. Treat with antibiotics empirically. This is third failed attempt at endoscopy and patient cannot tolerate prep. Surgical evaluation. Procedure Code(s): - 88200-48, Colonoscopy, flexible; diagnostic, including collection of specimen(s) by brushing or washing, when performed (separate procedure) CPT(R) - 2023 copyright [employer]. All Rights Reserved. The CPT codes, CCI edits and ICD codes generated are intended as suggestions and were generated based on input data. These codes are preliminary and upon building contractor review may be revised to meet current compliance and payer requirements. The provider is responsible for the final determination of appropriate codes, and modifiers. Heri Bermudez MD This document has been electronically signed. Note Initiated:07/13/2024 Note Completed:07/13/2024 8:25 AM [id number]
--- NOTE | 2024-07-13 12:18 | Surgery Consultation ---
Date of Consultation July 13, 2024 Assessment & Plan (1) Colonic obstruction: 78-year-old woman with partial colonic obstruction due most likely to diverticular stricture however cancer is not able to be ruled out. Would recommend attempting colonoscopy with stent placement to allow for diagnosis as well as prepping of the colon for surgery. This is unable to be done here due to lack of advanced GI capabilities. Would recommend transfer to tertiary care center for further evaluation. This has been discussed with Dr. Suarez. History of Present Illness Reason for Consultation: colonic stricture Requesting Physician: Lasha Rios MD Attending Physician: Lasha Rios MD History of Present Illness 78-year-old woman presents with bloating and abdominal pain for the past few days. She has a history of diverticulitis. She developed some nausea. Last colonoscopy in 2019 which demonstrated some narrowing of the sigmoid colon but no polyps. Currently having minimal abdominal pain. Has been passing a small amount of flatus. Colonoscopy has been attempted twice but unable to complete due to prep. Allergies Allergy/AdvReac Type Severity Reaction Status Date / Time Iodinated Contrast Media AdvReac Intermediate CONTRAST Verified 07/11/24 15:29 DYE CAUSES RENAL PROBLEMS PER DR CESAR Home Medications Medication Instructions Recorded Confirmed Type calcium ER 600 mg (as carb,cit)-D3 1 tab PO QAM 03/29/20 07/11/24 History 12.5 mcg (500 unit) tablet, ext.rel (Citracal-D3 Slow Release) cholecalciferol (vitamin D3) 25 1,000 unit PO QAM 03/29/20 07/11/24 History mcg (1,000 unit) tablet (Vitamin D3) prednisone 5 mg tablet 5 mg PO QAM 03/29/20 07/11/24 History hydroxychloroquine 200 mg tablet 200 mg PO QAM #90 tabs 05/08/20 07/11/24 Rx [facility] 1 tab PO QAM 07/30/21 07/11/24 History amoxicillin 500 mg capsule 2,000 mg (4 x 500 mg) PO ONCE #10 04/01/22 07/11/24 Rx caps risedronate 35 mg tablet (Actonel) 35 mg PO .Weekly #12 tabs 04/13/22 07/11/24 Rx valsartan 160 1 tab PO QAM #90 tabs 10/12/23 07/11/24 Rx mg-hydrochlorothiazide 25 mg tablet atenolol 25 mg tablet 25 mg PO QAM #90 tabs 11/26/23 07/11/24 Rx atorvastatin 20 mg tablet 20 mg PO QPM #90 tabs 11/26/23 07/11/24 Rx calcitriol 0.25 mcg capsule 0.25 mcg PO .COMPLEX #36 caps 11/26/23 07/11/24 Rx levothyroxine 137 mcg tablet 137 mcg PO DAILY #90 tabs 11/26/23 07/11/24 Rx mycophenolate mofetil 500 mg tablet 1,000 mg (2 x 500 mg) PO BID #360 01/25/24 07/11/24 Rx tabs Patient History Medical History CKD (chronic kidney disease) stage 3, GFR 30-59 ml/min Macrocytic anemia Prediabetes At risk for cardiovascular event Disc degeneration, lumbar Hilar enlargement Hypertension 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 Helena Ray per patient History of radioactive iodine thyroid ablation Secondary to hyperthyroidism History of bronchitis No recent issues Systemic lupus erythematosus Surgical History Status post total right knee replacement Status post total left knee replacement 01/30/22 @ [facility] History of anesthesia reaction WOKE UP IN MIDDLE OF BRONCHOSCOPY Bartholin cyst removal on bilt sides History of removal of cyst benign cyst removed off left lymph node History of biopsy kidney History of bilateral tubal ligation History of colonoscopy History of tooth extraction History of tonsillectomy History of bilateral cataract extraction History of bronchoscopy d/t bronchitis "THAT WOULD NOT CLEAR">DX WITH BAD LUNG INFECTION Family History Mother Family history of diabetes mellitus Pulmonary embolism Father Family history of diabetes mellitus COPD (chronic obstructive pulmonary disease) Acute exacerbation of emphysema Grandmother (Maternal) Family history of diabetes mellitus Grandfather (Paternal) Family history of diabetes mellitus Other No family history of adverse response to anesthesia Denies family history of Myocardial infarction Breast cancer Colorectal cancer Social History Smoking Status: Never smoker Second Hand Exposure: Yes (father smoked/ smoked); Do You Dip or Chew Tobacco: No; Hx Alcohol Use: Yes Alcohol type: wine Alcohol type Comment: Wine with every evening meal Hx Substance Use: No Preferred Language: Lithuanian Communication Ability: Effective Visual Impairment: No Limitations Hearing Ability: Normal Vest Finisher Required: No Beliefs That Will Affect Care: None marital status: Current Living Situation: Spouse current occupational status: retired How many Children do You have: 0 Other Information That Helps Us Care for You: No Feels Safe at Home: No Is there a partner from a previous relationship who is making you feel unsafe now?: No Any Concerns about Your Family Situation: No Would You Like to Speak to Someone About Your Situation: No Safety Concerns: Feels Safe At This Time Childhood Exposure to Second-Hand Smoke: Yes Diet: regular caffeine: Yes (iced tea approx 3 x weekly) Dental Care, Regularly: Yes Physical Activity Frequency: 1-2 Times per Week Seatbelt Use: always Sunscreen Use: No Assistive Devices: None Review of Systems Review of Systems: All systems reviewed & are unremarkable except as noted in HPI & below Physical Exam Constitutional: WD/WN, vitals as above Eyes: PERRL, conjunctivae normal, anicteric sclerae Neck: trachea midline, no thyromegaly Respiratory: normal respiratory effort; no respiratory distress and no labored breathing Cardiovascular: Rate/Rhythm: regular rate and regular rhythm Gastrointestinal (Abdomen): Inspection/Auscultation: + abdomen distended Percussion/Palpation: abdomen soft; abdomen nontender, no guarding and abdomen not rigid Skin: no rashes, warm and dry Psychiatric: A+Ox3, euthymic affect Results & Data Vital Signs (Past 12 Hours) Vital Signs Temp Pulse Pulse Pulse Resp BP BP 07/13/24 08:45 36.4 C L 66 16 152/87 H 07/13/24 08:35 60 18 151/85 H 07/13/24 08:25 57 L 16 148/87 H 07/13/24 08:18 36.3 C L 63 18 134/81 07/13/24 05:50 70 07/13/24 05:42 74 07/13/24 05:22 76 158/93 H 07/13/24 04:29 36.7 C 90 17 BP Pulse Ox O2 Del Method O2 Flow Rate 07/13/24 08:45 94 Oxymask 2 07/13/24 08:35 94 Room Air 07/13/24 08:25 98 Oxymask 4 07/13/24 08:18 95 Oxymask 4 07/13/24 05:50 07/13/24 05:42 07/13/24 05:22 07/13/24 04:29 147/89 H 94 Room Air Laboratory Results 07/13/24 Range/Units 06:09 WBC 13.26 H (4.8-10.8) K/ul RBC 3.64 L (4.20-5.40) M/uL Hgb 11.2 L (12.0-16.0) g/dl Hct 35.2 L (37.0-47.0) % MCV 96.7 (80.0-100.0) fL MCH 30.8 (25.0-34.0) pg MCHC 31.8 L (32.0-36.0) g/dL RDW Std Deviation 50.0 H (36.4-46.3) fL RDW Coeff of [place] 14.0 (11.5-14.5) % Plt Count 279 (130-400) K/uL MPV 11.4 (9.4-12.4) fL Immature Gran % (Auto) 0.4 % Neut % (Auto) 81.4 % Lymph % (Auto) 9.0 % [place] % (Auto) 9.0 % Eos % (Auto) 0.0 % Baso % (Auto) 0.2 % Neut # (Auto) 10.79 H (1.40-6.50) K/uL Lymph # (Auto) 1.19 L (1.20-3.40) K/uL [place] # (Auto) 1.20 H (0.11-0.59) K/uL Eos # (Auto) 0.00 (0.00-0.50) K/uL Baso # (Auto) 0.03 (0.00-0.20) K/uL Immature Gran # (Auto) 0.05 (0.01-0.20) K/uL Sodium 145 (136-145) mmol/L Potassium 3.3 L (3.5-5.1) mmol/L Chloride 105 (98-107) mmol/L Carbon Dioxide 28 (21-32) mmol/L Anion Gap 12 H (3-11) BUN 34 H (6-23) mg/dl Creatinine 1.25 H (0.6-1.2) mg/dl Est Cr Clr Drug Dosing 42.7 ml/min eGFR 44.67 BUN/Creatinine Ratio 27.2 H (10-20) Glucose 103 H (70-99(Fasting)) mg/dl Calcium 8.1 L (8.6-10.3) mg/dl Diagnostic Findings CT OF THE ABDOMEN AND PELVIS WITH ORAL CONTRAST CLINICAL HISTORY: Abdominal bloating and distention. COMPARISON STUDY: Renal ultrasound June 03, 2023. Right upper quadrant ultrasound June 19, 2011. TECHNIQUE: Axial images of the abdomen and pelvis were obtained without IV contrast. Oral contrast was administered. automated exposure control was utilized for the study. A dose lowering technique was utilized adhering to the principles of ALARA. FINDINGS: No pneumatosis, free air or portal venous gas is present. Evaluation of the abdomen and pelvis is suboptimal on this unenhanced examination. A water attenuation 2.6 cm caudate lobe lesion favors a cyst. No additional hepatic lesions are identified. There is no biliary or pancreatic ductal dilatation. Moderate bilateral renal cortical thinning is noted. 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 Water attenuation 2.5 cm interpolar right renal lesion favors a cyst. There is no hydronephrosis. There are no urinary calculi. The appendix is normal. The majority of the colon is moderately distended and stool-filled. There is a large amount of poorly formed stool with in the colon. Transition point within the proximal sigmoid colon is noted. There is mild diffuse pericolonic stranding. There is sigmoid diverticulosis. Sigmoid colon wall thickening is present. There is no associated lymphadenopathy. There are no fluid collections. There is no extraluminal gas. No suspicious lesions within the visualized skeletal structures are present. There is a tiny fat-containing umbilical hernia. IMPRESSION: 1. Moderately distended ascending colon, transverse colon and descending colon with apparent transition point within the proximal sigmoid colon. Mild pericolonic stranding. No pneumoperitoneum. The findings are suspicious for a colonic obstruction. Large amount of stool throughout the colon. Sigmoid colon wall thickening at site of transition is nonspecific. An underlying neoplasm cannot be excluded. However, a benign stricture or circular muscular hypertrophy in the setting of sigmoid diverticulosis could appear similar. GI consultation is recommended. 2. Colonic diverticulosis. No convincing evidence for acute diverticulitis. 3. Suboptimal evaluation of the abdomen and pelvis given lack of IV contrast.
[2024-07-13] MEDS: POTASSIUM CHLORIDE / WTR 10 MEQ/100 ML PLCT IV SCH (12:39)
--- NOTE | 2024-07-13 13:21 | CT Scan Report ---
EXAM: CT Abdomen and Pelvis Without Intravenous Contrast INDICATION: Bowel obstruction. TECHNIQUE: Axial computed tomography images of the abdomen and pelvis without intravenous contrast. Sagittal and coronal reformatted images were created and reviewed. This CT exam was performed using one or more of the following dose reduction techniques: automated exposure control, adjustment of the mA and/or kV according to patient size, and/or use of iterative reconstruction technique. Oral contrast was administered. COMPARISON: No relevant prior studies available. FINDINGS: Limitations: None. Lung bases: Trace right basilar pleural effusion and mild right base atelectasis. Pleural space: Small right pleural effusion. Heart: No abnormality noted. Mediastinum: No abnormality noted. ABDOMEN: Liver: Lack of intravenous contrast limits detection of some masses. No abnormality noted. Gallbladder and bile ducts: No calcified stones or surrounding fluid. Pancreas: No pancreatic mass, calcification, inflammation or ductal dilation noted. Spleen: No significant abnormality noted. Adrenals: No significant abnormality noted. Kidneys and ureters: Simple right renal cyst/s. No simple cyst follow-up necessary. Left kidney appears normal. No renal stone, hydronephrosis or perinephric fluid. There is bilateral renal cortical thinning. No stones. No hydronephrosis. Stomach and bowel: There is diffuse colonic dilatation to the level of the rectosigmoid with abrupt change in caliber and minimal contrast in the distal rectum. No small bowel distention. Colonic diverticula noted. No pneumatosis. The cecum measures 10.3 cm. PELVIS: Appendix: No findings to suggest acute appendicitis. Bladder: Collapsed and suboptimally assessed. No stone or gas. Reproductive: No abnormalities noted. ABDOMEN and PELVIS: Intraperitoneal space: There is trace fluid in the right lower quadrant. No abscess. A portion of the right upper quadrant and diaphragm is not included. No visible free intraperitoneal air. Bones/joints: No acute changes. Soft tissues: Small fat-containing umbilical hernia noted. Vasculature: Atherosclerotic calcification of the aorta and branches. No aneurysm. Lymph nodes: No pathologically enlarged lymph nodes. Tubes, lines and devices: Nasogastric tube terminates in the gastric antrum. IMPRESSION: 1. Findings strongly suspicious for rectosigmoid obstruction secondary to underlying mass with colonic obstruction. No perforation. Cecum measures 10.3 cm. 2. Trace right pleural effusion and mild right lower quadrant free fluid. No abscess. ACT 112: Negative or not required by law. Electronically signed by Eduarda Dominguez 07-13-2024 13:21 PM
[2024-07-13] MEDS: PIPERACILLIN/TAZOBACTAM 4.5 GM/100 ML BAG IV ONE (13:47)
--- NOTE | 2024-07-13 15:09 | Hospitalist Progress Note ---
Date of Service July 13, 2024 Assessment & Plan (1) Colonic obstruction: Plan: Repeat abdominal pelvic CT scan done today, July 13, again reveals dilated colon with what appears to be total obstruction in the rectosigmoid area. Cecal diameter is now 10.3 cm. I will contact [facility] again today to try to arrange transfer which is suggested by our GI service and general surgery. NG tube remains in place. Attempted colonoscopy evaluation was aborted due to very poor bowel prep. GI now states the flexible sigmoidoscopy results were nondiagnostic. NG tube remains in place. Insurance limitations prevent transfer to [facility] in [place] (2) CKD (chronic kidney disease) stage 3, GFR 30-59 ml/min: Plan: Mild acute on chronic kidney disease noted on admission. Creatinine slightly elevated at 1.6 on admission. Creatinine now normalized to 1.2. Monitor intake and output. Serial labs (3) Lupus nephritis: Plan: Steroid-dependent. Currently on intravenous hydrocortisone. Mycophenolate is on hold hold (4) Hypothyroidism: Plan: Stable. Continue current thyroid replacement when taking p.o. (5) Hypertension: Plan: Currently on intravenous metoprolol scheduled dosing. Atenolol and valsartan/HCTZ on hold . (6) Troponin level elevated: Plan: No evidence of acute coronary syndrome. No chest pain. (7) Hypokalemia: Plan: Mild. Parenteral replacement. Serial labs Plan Transfer to [facility] when arrangements are finalized Admission and Anticipated Discharge Date Admission Date: July 11, 2024 Subjective No significant change. Repeat abdominal pelvic CT scan today again reveals dilated colon. The cecum is now 10.[address] findings are most consistent with a total colorectal obstruction. I discussed the case with Dr. Dill and also general surgery has weighed in. They suggest transfer to a tertiary care center. I will call [facility] again today and try to facilitate the transfer as soon as possible. I will also try to reach her by phone Review of Systems 2 Review of Systems: Constitutionalno fever or chills ENTno blurred vision, no double vision, no epistaxis, no sore throat Respiratoryno cough, no wheezing, no shortness of breath Cardiacno palpitations, no chest pain, no syncope GIintermittent nausea. No vomiting. Abdominal distention noted. No bowel movements GUno urinary retention, no urinary incontinence, no dysuria, no hematuria Musculoskeletalno joint pain, no muscle tenderness Skinno bruising, no rashes, no pruritus Neurono isolated weakness, no paresthesia, no weakness Psychno depression, no anxiety Physical Exam 2 Physical Exam: General-alert and oriented x3, no fever, no chills HEENT-head atraumatic and normocephalic, pupils equal and reactive to light, extraocular muscles intact Neck-no lymphadenopathy or thyromegaly, trachea midline Chest-clear to auscultation. No rales, wheezing or rhonchi Cardiac-regular rate and rhythm, normal S1 and S2 Abdomen-distended. Bowel sounds are hypoactive but present. Diffuse mild tenderness. No rebound or guarding. Extremities-no cyanosis, clubbing, or edema Neuro-cranial nerves II through XII intact, motor and sensory function within normal limits, strength symmetrical, no focal deficits Psych-normal affect, normal mood Results & Data Results & Data Vital Signs (Past 12 Hours) Vital Signs Temp Pulse Pulse Pulse Resp BP BP 07/13/24 13:40 58 L 127/75 07/13/24 13:19 66 132/77 07/13/24 08:45 36.4 C L 66 16 152/87 H 07/13/24 08:35 60 18 151/85 H 07/13/24 08:25 57 L 16 148/87 H 07/13/24 08:18 36.3 C L 63 18 134/81 07/13/24 05:50 70 07/13/24 05:42 74 07/13/24 05:22 76 158/93 H 07/13/24 04:29 36.7 C 90 17 BP Pulse Ox O2 Del Method O2 Flow Rate 07/13/24 13:40 07/13/24 13:19 07/13/24 08:45 94 Oxymask 2 07/13/24 08:35 94 Room Air 07/13/24 08:25 98 Oxymask 4 07/13/24 08:18 95 Oxymask 4 07/13/24 05:50 07/13/24 05:42 07/13/24 05:22 07/13/24 04:29 147/89 H 94 Room Air Laboratory Results 07/13/24 06:09 07/13/24 06:09 PG Care Time/CCT Total # of Minutes Spent Total Time Spent with Patient: Total time spent is greater than 50% in coordination of care (as documented) at patient's floor/unit and/or counseling patient: Coding Level of Care Code 01649 SUB INP/OBS CARE 3/50MIN Diagnoses Colonic obstruction K56.609 CKD (chronic kidney disease) stage 3, GFR 30-59 ml/min N18.30 Lupus nephritis M32.14 Hypothyroidism E03.9 Hypertension I10 Troponin level elevated R79.89 Hypokalemia E87.6
--- NOTE | 2024-07-13 16:25 | Anesthesiology Consultation ---
Date of Service July 13, 2024 Assessment & Plan Chart Review Chart Review: Acceptable Risk for Surgery and Patient NOT seen in Pre Admission Testing Consults Requested none History Surgery Operation Date: 07/11/24 16:45 Proposed Procedures p Flexible Sigmoidoscopy Aidan Bermudez MD Operation Date: 07/12/24 17:25 Proposed Procedures p Flexible Sigmoidoscopy Aidan Bermudez MD Operation Date: 07/13/24 07:30 Proposed Procedures p Colonoscopy - Heri Bermudez MD Operation Date: 07/13/24 17:00 Proposed Procedures p Laparoscopic Loop Colostomy - Efrain Mitchell MD Height/Weight Height: 5 ft 7 in Weight: 84.1 kg Allergies Allergy/AdvReac Type Severity Reaction Status Date / Time Iodinated Contrast Media AdvReac Intermediate CONTRAST Verified 07/11/24 15:29 DYE CAUSES RENAL PROBLEMS PER DR CESAR Medications Home Medications Medication Instructions Recorded Confirmed Last Taken calcium ER 600 mg (as carb,cit)-D3 1 tab PO QAM 03/29/20 07/11/24 07/10/24 12.5 mcg (500 unit) tablet, ext.rel (Citracal-D3 Slow Release) cholecalciferol (vitamin D3) 25 1,000 unit PO QAM 03/29/20 07/11/24 07/10/24 mcg (1,000 unit) tablet (Vitamin D3) prednisone 5 mg tablet 5 mg PO QAM 03/29/20 07/11/24 07/10/24 hydroxychloroquine 200 mg tablet 200 mg PO QAM #90 tabs 05/08/20 07/11/24 07/10/24 [facility] 1 tab PO QAM 07/30/21 07/11/24 07/10/24 amoxicillin 500 mg capsule 2,000 mg (4 x 500 mg) PO ONCE #10 04/01/22 07/11/24 Unknown caps risedronate 35 mg tablet (Actonel) 35 mg PO .Weekly #12 tabs 04/13/22 07/11/24 07/06/24 valsartan 160 1 tab PO QAM #90 tabs 10/12/23 07/11/24 07/10/24 mg-hydrochlorothiazide 25 mg tablet atenolol 25 mg tablet 25 mg PO QAM #90 tabs 04/08/0807/11/24 07/10/24 atorvastatin 20 mg tablet 20 mg PO QPM #90 tabs 11/26/23 07/11/24 07/10/24 calcitriol 0.25 mcg capsule 0.25 mcg PO .COMPLEX #36 caps 11/26/23 07/11/24 07/10/24 levothyroxine 137 mcg tablet 137 mcg PO DAILY #90 tabs 11/26/23 07/11/24 07/10/24 mycophenolate mofetil 500 mg tablet 1,000 mg (2 x 500 mg) PO BID #360 01/25/24 07/11/24 07/10/24 tabs Active Medications Generic Name Dose Route Start Last Admin Trade Name Freq PRN Reason Stop Dose Admin Hydrocortisone Sodium 0.5 mls @ 4 mls/min 07/12/24 14:00 07/13/24 14:18 Succinate 25 mg/ Syringe IV 08/11/24 13:59 4 mls/min Q8H TIMA Administration Metoprolol Tartrate 2.5 mg 07/11/24 18:00 07/13/24 13:19 Metoprolol Tartrate 1 Mg/Ml Vial IV 08/10/24 17:59 2.5 mg Q6 TIMA Administration Polyethylene Glycol/Electrolytes 8 dose 07/12/24 15:00 07/13/24 15:22 Lavage Solution 4000ml PO 08/11/24 14:59 Not Given TODAY@1500 TIMA NPO Date Last Intake of Fluids: 07/12/24 Time Last Intake of Fluids: 18:00 Date Last Intake of Solids: 07/10/24 Time Last Intake of Solids: 19:00 Past Medical History Medical History CKD (chronic kidney disease) stage 3, GFR 30-59 ml/min Macrocytic anemia Prediabetes At risk for cardiovascular event Disc degeneration, lumbar Hilar enlargement Hypertension 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 Malik Stable per patient History of radioactive iodine thyroid ablation Secondary to hyperthyroidism History of bronchitis No recent issues Systemic lupus erythematosus Past Family History Family History Mother Family history of diabetes mellitus Pulmonary embolism Father Family history of diabetes mellitus COPD (chronic obstructive pulmonary disease) Acute exacerbation of emphysema Grandmother (Maternal) Family history of diabetes mellitus Grandfather (Paternal) Family history of diabetes mellitus Other No family history of adverse response to anesthesia Denies family history of Myocardial infarction Breast cancer Colorectal cancer Past Surgical History Surgical History Status post total right knee replacement Status post total left knee replacement 01/30/22 @ [facility] History of anesthesia reaction WOKE UP IN MIDDLE OF BRONCHOSCOPY Bartholin cyst removal on bilt sides History of removal of cyst benign cyst removed off left lymph node History of biopsy kidney History of bilateral tubal ligation History of colonoscopy History of tooth extraction History of tonsillectomy History of bilateral cataract extraction History of bronchoscopy d/t bronchitis "THAT WOULD NOT CLEAR">DX WITH BAD LUNG INFECTION Social History Smoking Status: Never smoker Do You Dip or Chew Tobacco: No Hx Alcohol Use: Yes Alcohol type: wine alcohol intake frequency: 0-2 drinks per day Hx Substance Use: No substance use type: does not use Physical Exam Vital Signs Last Vital Signs Temp 36.5 C 07/13/24 16:19 Pulse 68 07/13/24 16:19 Resp 18 07/13/24 16:19 BP 167/83 H 07/13/24 16:19 Pulse Ox 93 07/13/24 16:19 O2 Del Method Room Air 07/13/24 16:19 O2 Flow Rate 2 07/13/24 08:45 Testing Laboratory Results 07/13/24 06:09 07/13/24 06:09 PT 10.2 Seconds (9.0-12.0) 07/11/24 08:40 INR 0.9 (0.9-1.1) 07/11/24 08:40 Urine Color Yellow 07/11/24 11:05 Urine Appearance Clear (Clear) 07/11/24 11:05 Urine pH 5.5 (4.5-7.5) 07/11/24 11:05 Ur Specific Ben[place] 1.018 (1.000-1.030) 07/11/24 11:05 Urine Protein 1+ (Negative) H 07/11/24 11:05 Urine Glucose (UA) Negative (Negative) 07/11/24 11:05 Urine Ketones Negative (Negative) 07/11/24 11:05 Urine Nitrite Negative (Negative) 07/11/24 11:05 Ur Leukocyte Esterase Trace (Negative) H 07/11/24 11:05 Urine WBC (Auto) 0-5 /hpf (0-5) 07/11/24 11:05 Urine RBC (Auto) 0-2 /hpf (0-2) 07/11/24 11:05 U Hyaline Cast (Auto) 3-5 /lpf (0-2) H 07/11/24 11:05 U Epithel Cells (Auto) 0-2 /hpf (0-2) 07/11/24 11:05 Urine Bacteria (Auto) None Seen (None Seen) 07/11/24 11:05
[2024-07-13] MEDS ORDERED: MIDAZOLAM HCL 1 MG/ML 2ML VIAL ONE (16:27)
[2024-07-13] MEDS ORDERED: fentaNYL citrate PF 100 MCG/2 ML VIAL ONE (16:28)
[2024-07-13] MEDS ORDERED: ROCURONIUM BROMIDE 10 MG/ML 5 ML VIAL IV ONE ×2 (16:29)
[2024-07-13] MEDS ORDERED: ARTIFICIAL TEARS OP OINT 3.5 GM TUBE ONE (16:32)
[2024-07-13] MEDS ORDERED: PHENYLEPHRINE 100MCG/ML 5ML SYR ONE (17:30)
[2024-07-13] MEDS ORDERED: ONDANSETRON INJ 2 MG/ML 2 ML VIAL ONE (17:43)
[2024-07-13] MEDS ORDERED: SUGAMMADEX SODIUM 200 MG/2 ML VIAL IV ONE (18:06)
[2024-07-13] MEDS: BUPIVACAINE 0.5 % 5 MG/1 ML MPF 30ML VIAL ONE (18:08)
--- NOTE | 2024-07-13 18:20 | Post Operative Brief Note ---
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
--- NOTE | 2024-07-13 18:25 | Operative Report ---
Post Operative Report Pre & Post Diagnosis Operation Date: 07/13/24 17:00 preop diagnosis: Large bowel obstruction Postop diagnosis: Same I identified the patient and participated in the time-out.: Yes Procedure Operation Date: 07/13/24 17:00 exploratory laparoscopy with transverse loop colostomy Surgeon Efrain Mitchell MD Business Trainer none Estimated Blood Loss 5 Findings Consistent with Post-Op Diagnosis Specimens colostomy site skin and fat Drains none Anesthesia Type General Complications none Description of Procedure the patient was taken to the operating room, placed supine on the operating table. A timeout was performed, perioperative antibiotics were administered, SCD boots were placed. After adequate anesthesia and analgesia was obtained, the area was prepped and draped in the normal sterile fashion. Incision was made in the midline just below the umbilicus and carried to the fascia. The fascia was grasped with 2-0 Vicryl stay sutures and was elevated. The fascia was entered and subsequently into the peritoneal cavity. A Sherman trocar was placed, and the abdomen was insufflated to pressure 15 mmHg. 10 mm 30 laparoscope was placed into the abdominal cavity. The abdomen was surveyed. The right colon was visible and was markedly dilated. A 5 mm trocar was placed under direct visualization on the right side. Using a bowel grasper, the transverse colon distal aspect was uncovered and was maneuvered into position for a transverse colostomy. The colostomy site was selected, and an ellipse of skin was excised with the 15 blade scalpel. Fat above the fascia was removed with Bovie electrocautery. A cruciate incision was made in the anterior fascia. The muscle was split and some of the muscle was cut, and subsequently the posterior fascia peritoneum was entered in a cruciate fashion. This was dilated to allow a loop of transverse colon to be brought up into this area. The transverse colon was secured to the fascia with 3-0 silk suture in 2 locations. the fascia and the 12 mm port site was closed with 0 Vicryl suture. The skin was closed with a running 4 Monocryl subcuticular stitch. Dermabond was applied. The ostomy was matured in Carline fashion with 3 oh-0 Vicryl sutures, and an ostomy appliance was placed. Dressings were applied. She tolerated the procedure without complication, transferred stable condition to the PACU. All instrument, needle, sponge counts were correct at the end of the case. I performed the procedure. I attest to the content of the Intraoperative Record and any orders documented therein. Any exceptions are noted below.
[2024-07-13] MEDS ORDERED: ATROPINE SULFATE 0.1 MG/ML 10ML SYR IV PRN (18:27)
[2024-07-13] MEDS ORDERED: ePHEDrine sulfate 50 MG/ML AMP IV PRN (18:27)
[2024-07-13] MEDS ORDERED: ONDANSETRON INJ 2 MG/ML 2 ML VIAL IV PRN (18:27)
[2024-07-13] MEDS ORDERED: fentaNYL citrate PF 100 MCG/2 ML VIAL IV PRN (18:27)
--- NOTE | 2024-07-13 18:31 | Anesthesiology Progress Note ---
Date of Service July 13, 2024 Anesthesia Post Procedure Vital Signs Vital Signs: Temp Pulse Pulse Pulse Resp BP BP 07/13/24 16:19 36.5 C 68 18 167/83 H 07/13/24 15:00 67 07/13/24 13:40 58 L 127/75 07/13/24 13:19 66 132/77 07/13/24 08:45 36.4 C L 66 16 152/87 H 07/13/24 08:35 60 18 151/85 H 07/13/24 08:25 57 L 16 148/87 H 07/13/24 08:18 36.3 C L 63 18 134/81 07/13/24 05:50 70 07/13/24 05:42 74 07/13/24 05:22 76 158/93 H 07/13/24 04:29 36.7 C 90 17 07/13/24 00:00 77 07/12/24 23:36 73 07/12/24 23:19 36.7 C 81 18 07/12/24 20:11 36.7 C 82 18 BP Pulse Ox O2 Del Method O2 Flow Rate 07/13/24 16:19 93 Room Air 07/13/24 15:00 07/13/24 13:40 07/13/24 13:19 07/13/24 08:45 94 Oxymask 2 07/13/24 08:35 94 Room Air 07/13/24 08:25 98 Oxymask 4 07/13/24 08:18 95 Oxymask 4 07/13/24 05:50 07/13/24 05:42 07/13/24 05:22 07/13/24 04:29 147/89 H 94 Room Air 07/13/24 00:00 07/12/24 23:36 07/12/24 23:19 149/93 H 93 Room Air 07/12/24 20:11 148/97 H 93 Room Air Pain Intensity Lower Abdomen: Pain Intensity: 0 Transfer of Care Handoff Completed per policy Notes Mental Status: alert / awake / arousable Patient Amnestic to Procedure: Yes Nausea / Vomiting: adequately controlled Pain: adequately controlled Airway Patency, RR, SpO2: stable & adequate BP & HR: stable & adequate Hydration State: stable & adequate Anesthetic Complications: no major complications apparent and Pt Satisfied with anesthetic care
[2024-07-13] MEDS: PIPERACILLIN/TAZOBACTAM 4.5 GM/100 ML BAG IV SCH (19:46)
[2024-07-13] MEDS: MoRPHine SULFATE 2 MG/ML CARP IV PRN (19:50)
[2024-07-14 06:32] LABS: Basophils # (auto) 0.02 K/uL (0.00-0.20); Basophils % (auto) 0.1 %; Eosinophils # (auto) 0.03 K/uL (0.00-0.50); Eosinophils % (auto) 0.2 %; Hematocrit (blood only) 32.4 % (37.0-47.0); Hemoglobin 10.2 g/dl (12.0-16.0); Immature Granulocytes # (auto) 0.07 K/uL (0.01-0.20); Immature Granulocytes % (auto) 0.5 %; Lymphocytes # (auto) 1.56 K/uL (1.20-3.40); Lymphocytes % (auto) 10.9 %; Mean Corpuscular Hemoglobin 31.4 pg (25.0-34.0); Mean Corpuscular Hgb Conc 31.5 g/dL (32.0-36.0); Mean Corpuscular Volume 99.7 fL (80.0-100.0); Mean Platelet Volume 11.4 fL (9.4-12.4); Monocytes # (auto) 0.99 K/uL (0.11-0.59); Monocytes % (auto) 6.9 %; Neutrophils # (auto) 11.61 K/uL (1.40-6.50); Neutrophils % (auto) 81.4 %; Platelet Count 239 K/uL (130-400); RDW Coefficient of Variation 14.3 % (11.5-14.5); RDW Standard Deviation 51.9 fL (36.4-46.3); Red Blood Count 3.25 M/uL (4.20-5.40); White Blood Count 14.28 K/ul (4.8-10.8)
[2024-07-14 06:49] LABS: BUN Creatinine Ratio 23.2 (10-20); Calcium 7.3 mg/dl (8.6-10.3); Creatinine Clr Calc Pharmacy 37.8 ml/min
--- NOTE | 2024-07-14 10:33 | Surgery Progress Note ---
Date of Service July 14, 2024 Assessment & Plan (1) Colonic obstruction: Plan: POD#1 diverting ostomy keep NG one more day sips good progress Admission and Anticipated Discharge Date Admission Date: July 11, 2024 Subjective pain controlled having multiple emptying of her colostomy Review of Systems Constitutional: no fever and no chills Respiratory: no cough and no dyspnea Cardiovascular: no chest pain Gastrointestinal: + abdominal pain; no nausea and no vomit ing Neurologic: no localized weakness Psychiatric: no behavioral changes Physical Exam Constitutional: WD/WN, vitals as above Respiratory: normal respiratory effort, lungs clear to auscultation Cardiovascular: RRR, no murmur, no edema Gastrointestinal (Abdomen): Inspection/Auscultation: abdomen normal to inspection, normal bowel sounds and + abdominal surgical incision (clean and dry); abdomen not distended Percussion/Palpation: + abdomen tender and abdomen soft; no guarding and abdomen not rigid ostomy pink and patent Musculoskeletal: Head/Neck/Chest: normocephalic and head atraumatic Results & Data Vital Signs (Past 12 Hours) Vital Signs Temp Pulse Pulse Resp BP BP Pulse Ox 07/14/24 08:53 58 L 07/14/24 08:17 36.8 C 58 L 16 144/76 H 94 07/14/24 03:46 36.9 C 64 16 138/72 93 07/13/24 23:45 51 L 138/71 O2 Del Method O2 Flow Rate 07/14/24 08:53 07/14/24 08:17 Nasal Cannula 2 07/14/24 03:46 Room Air 07/13/24 23:45
--- NOTE | 2024-07-14 10:42 | Gastroenterology Progress Note ---
Date of Service July 14, 2024 Assessment & Plan (1) Colonic obstruction: Plan: Patient is s/p transverse colon calotte diverting colostomy she has an obstructive lesion in the rectosigmoid region multiple attempts at trying to evaluate the lesion by endoscopically failed because of the presence of large amount of stools she had a diverting colostomy done in light of the obstruction and is doing well postop day 1 further management as per surgery and will need endoscopic evaluation of the rectosigmoid region to evaluate the exact cause of the obstruction Thank you for allowing us to take part in the care of your patient we will follow her with you Admission and Anticipated Discharge Date Admission Date: July 11, 2024 Subjective Patient is lying comfortably in the bed events of yesterday noted patient had a diverting colostomy done and the procedure was without complications she is feeling much better today and she states that she feels that she is progressing well she has some cramping but not of any significance in the abdomen her colostomy is getting filled with stool on the whole she is comfortable and she feels that she is getting much better Review of Systems Review of Systems: A 10 point review of systems was done Physical Exam Constitutional: Appears comfortable and in no distressed Neck: Supple Respiratory: Clear anteriorly Gastrointestinal (Abdomen): Not distended not tender colostomy site appears clean bowel sounds are present the colostomy is also semifull of stool Results & Data Results & Data Vital Signs (Past 12 Hours) Vital Signs Temp Pulse Pulse Resp BP BP Pulse Ox 07/14/24 08:53 58 L 07/14/24 08:17 36.8 C 58 L 16 144/76 H 94 07/14/24 03:46 36.9 C 64 16 138/72 93 07/13/24 23:45 51 L 138/71 O2 Del Method O2 Flow Rate 07/14/24 08:53 07/14/24 08:17 Nasal Cannula 2 07/14/24 03:46 Room Air 07/13/24 23:45 PG Care Time/CCT Total # of Minutes Spent Total Time Spent with Patient: Total time spent is greater than 50% in coordination of care (as documented) at patient's floor/unit and/or counseling patient: Coding Level of Care Code 33885 SUB INP/OBS CARE 2/35MIN Diagnoses Colonic obstruction K56.609
[2024-07-14] MEDS: PANTOprazole 40 MG/10 ML SYR IV SCH (11:07)
[2024-07-14] MEDS: D5W AND 1/2NSS 1,000 ML IV SCH (11:07)
--- NOTE | 2024-07-14 13:06 | Hospitalist Progress Note ---
Date of Service July 14, 2024 Assessment & Plan (1) Colonic obstruction: Plan: Repeat abdominal pelvic CT scan done on July 13 again reveals dilated colon with what appears to be total obstruction in the rectosigmoid area. Cecal diameter was 10.[address] [facility] refused to take the patient in transfer and she subsequently underwent diverting colostomy procedure here on July 13. Postoperative day #1. NG tube remains in place. She underwent 2 attempted flexible sigmoidoscopy procedures and 1 attempted colonoscopy procedure prior to operative intervention. All failed due to to very poor bowel prep. (2) CKD (chronic kidney disease) stage 3, GFR 30-59 ml/min: Plan: Mild acute on chronic kidney disease noted on admission. Creatinine slightly elevated at 1.6 on admission. Creatinine improved to 1.2 and is now 1.4 today, July 14. Will monitor intake and output. Serial labs. (3) Lupus nephritis: Plan: Steroid-dependent. Currently on intravenous hydrocortisone. Mycophenolate is on hold (4) Hypothyroidism: Plan: Stable. Continue current thyroid replacement when taking p.o. (5) Hypertension: Plan: Currently on intravenous metoprolol scheduled dosing. Will switch back to a atenolol when she is taking p.o. Valsartan/HCTZ is on hold . (6) Troponin level elevated: Plan: No evidence of acute coronary syndrome. No chest pain. (7) Hypokalemia: Plan: Corrected with parenteral replacement. Serial labs Plan To be determined. OT and PT evaluations will be requested tomorrow, July 15. Admission and Anticipated Discharge Date Admission Date: July 11, 2024 Subjective Alert and oriented. She says she feels better. Postoperative day #1 after placement of diverting colostomy in the upper mid abdomen which contains some stool. Surgery entry noted. She will remain n.p.o. for 1 more day. Currently on intravenous hydrocortisone which replaces her usual oral prednisone. Sodium is up to 146 and IV fluids have been switched to D5/0.45. Creatinine at 1.4 today, July 14. Mild hypokalemia has been corrected. Review of Systems 2 Review of Systems: Constitutionalno fever or chills ENTno blurred vision, no double vision, no epistaxis, no sore throat Respiratoryno cough, no wheezing, no shortness of breath Cardiacno palpitations, no chest pain, no syncope GInausea has resolved. No vomiting. Abdominal distention has lessened. No bowel movements. No flatulence GUno urinary retention, no urinary incontinence, no dysuria, no hematuria Musculoskeletalno joint pain, no muscle tenderness Skinno bruising, no rashes, no pruritus Neurono isolated weakness, no paresthesia, no weakness Psychno depression, no anxiety Physical Exam 2 Physical Exam: General-alert and oriented x3, no fever, no chills HEENT-head atraumatic and normocephalic, pupils equal and reactive to light, extraocular muscles intact Neck-no lymphadenopathy or thyromegaly, trachea midline Chest-clear to auscultation. No rales, wheezing or rhonchi Cardiac-regular rate and rhythm, normal S1 and S2 Abdomen-less distended. Functioning colostomy now present in the upper mid abdomen. Bowel sounds are hypoactive but present. No rebound or guarding. Extremities-no cyanosis, clubbing, or edema Neuro-cranial nerves II through XII intact, motor and sensory function within normal limits, strength symmetrical, no focal deficits Psych-normal affect, normal mood Results & Data Results & Data Vital Signs (Past 12 Hours) Vital Signs Temp Pulse Pulse Resp BP BP Pulse Ox 07/14/24 12:42 64 07/14/24 12:26 07/14/24 11:47 63 157/73 H 07/14/24 11:20 63 157/73 H 07/14/24 11:17 36.6 C 63 16 157/73 H 95 07/14/24 08:53 58 L 07/14/24 08:17 36.8 C 58 L 16 144/76 H 94 07/14/24 03:46 36.9 C 64 16 138/72 93 O2 Del Method O2 Flow Rate 07/14/24 12:42 07/14/24 12:26 Nasal Cannula 2 07/14/24 11:47 07/14/24 11:20 07/14/24 11:17 Nasal Cannula 2 07/14/24 08:53 07/14/24 08:17 Nasal Cannula 2 07/14/24 03:46 Room Air Laboratory Results 07/14/24 05:40 07/14/24 05:40 PG Care Time/CCT Total # of Minutes Spent Total Time Spent with Patient: Total time spent is greater than 50% in coordination of care (as documented) at patient's floor/unit and/or counseling patient: Coding Level of Care Code 55352 SUB INP/OBS CARE MIN Diagnoses Colonic obstruction K56.609 CKD (chronic kidney disease) stage 3, GFR 30-59 ml/min N18.30 Lupus nephritis M32.14 Hypothyroidism E03.9 Hypertension I10 Troponin level elevated R79.89 Hypokalemia E87.6
[2024-07-15 07:04] LABS: Basophils # (auto) 0.03 K/uL (0.00-0.20); Basophils % (auto) 0.2 %; Eosinophils # (auto) 0.14 K/uL (0.00-0.50); Eosinophils % (auto) 1.1 %; Hematocrit (blood only) 34.4 % (37.0-47.0); Hemoglobin 10.6 g/dl (12.0-16.0); Immature Granulocytes # (auto) 0.05 K/uL (0.01-0.20); Immature Granulocytes % (auto) 0.4 %; Lymphocytes # (auto) 1.42 K/uL (1.20-3.40); Lymphocytes % (auto) 11.4 %; Mean Corpuscular Hemoglobin 31.2 pg (25.0-34.0); Mean Corpuscular Hgb Conc 30.8 g/dL (32.0-36.0); Mean Corpuscular Volume 101.2 fL (80.0-100.0); Mean Platelet Volume 11.2 fL (9.4-12.4); Monocytes # (auto) 0.93 K/uL (0.11-0.59); Monocytes % (auto) 7.5 %; Neutrophils # (auto) 9.86 K/uL (1.40-6.50); Neutrophils % (auto) 79.4 %; Platelet Count 209 K/uL (130-400); RDW Coefficient of Variation 14.1 % (11.5-14.5); RDW Standard Deviation 51.9 fL (36.4-46.3); White Blood Count 12.43 K/ul (4.8-10.8)
[2024-07-15 07:18] LABS: Calcium 7.1 mg/dl (8.6-10.3); Creatinine Clr Calc Pharmacy 37.5 ml/min; Potassium 3.7 mmol/L (3.5-5.1)
--- NOTE | 2024-07-15 10:12 | Gastroenterology Progress Note ---
Date of Service July 15, 2024 Assessment & Plan (1) Colonic obstruction: Plan: The patient had presented with colonic obstruction thought to be related to sigmoid mass on CT, she did undergo an emergency loop colostomy with general surgery. The patient does seem to be improving well from the recent surgical intervention and is now having spontaneous bowel movements.. Please call if there are any additional questions or concerns, the patient will ultimately need a clearing colonoscopy to be scheduled with her regular GI provider. Admission and Anticipated Discharge Date Admission Date: July 11, 2024 Subjective The patient is postop day 2 for a diverting loop colostomy performed by Dr. Mitchell after she had presented with large bowel obstruction with an unsuccessful colonoscopy. The patient notes that she is having some ostomy output in addition to now having spontaneous bowel movements. Abdominal pain is much less than before. Physical Exam Respiratory: normal respiratory effort and + tachypneic; no respiratory distress, no retractions, does not use accessory muscles and no cough Gastrointestinal (Abdomen): Mild distention of the abdomen noted, the ostomy site is notable in the left lower quadrant and had some stool within it. Results & Data Vital Signs (Past 12 Hours) Vital Signs Temp Pulse Pulse Resp BP Pulse Ox O2 Del Method 07/15/24 07:24 36.9 C 56 L 19 149/73 H 90 Room Air 07/15/24 07:00 61 07/15/24 06:34 54 L 07/15/24 06:00 54 L 07/15/24 03:29 36.9 C 65 18 154/78 H 92 Room Air 07/15/24 00:34 53 L 07/15/24 00:32 53 L 07/15/24 00:08 60 07/14/24 23:54 36.5 C 62 16 124/74 94 Room Air Laboratory Results Laboratory Results - last 24 hr 07/15/24 06:31 WBC 12.43 H RBC 3.40 L Hgb 10.6 L Hct 34.4 L MCV 101.2 H MCH 31.2 MCHC 30.8 L RDW Std Deviation 51.9 H RDW Coeff of Carito 14.1 Plt Count 209 MPV 11.2 Immature Gran % (Auto) 0.4 Neut % (Auto) 79.4 Lymph % (Auto) 11.4 Vernon % (Auto) 7.5 Eos % (Auto) 1.1 Baso % (Auto) 0.2 Neut # (Auto) 9.86 H Lymph # (Auto) 1.42 Vernon # (Auto) 0.93 H Eos # (Auto) 0.14 Baso # (Auto) 0.03 Immature Gran # (Auto) 0.05 Sodium 145 Potassium 3.7 Chloride 109 H Carbon Dioxide 31 Anion Gap 5 BUN 27 H Creatinine 1.42 H Est Cr Clr Drug Dosing 37.5 eGFR 38.33 BUN/Creatinine Ratio 19.0 Glucose 140 H Calcium 7.1 L
--- NOTE | 2024-07-15 10:49 | Surgery Progress Note ---
Date of Service July 15, 2024 Assessment & Plan (1) Colonic obstruction: Plan: s/p diversion remove NG begin clears stop IVF if taking po well transfer to tertiary center for definitive management of sigmoid stricture next week Admission and Anticipated Discharge Date Admission Date: July 11, 2024 Subjective multiple ostomy outputs no N/V pain contolled OOB well Review of Systems Constitutional: no fever and no chills Respiratory: no cough and no dyspnea Cardiovascular: no chest pain Gastrointestinal: + abdominal pain; no nausea, no vomiting and no change in bowel habits Neurologic: no localized weakness Psychiatric: no behavioral changes Physical Exam Constitutional: WD/WN, vitals as above Respiratory: normal respiratory effort, lungs clear to auscultation Cardiovascular: RRR, no murmur, no edema Gastrointestinal (Abdomen): Inspection/Auscultation: abdomen normal to inspection and normal bowel sounds; abdomen not distended Percussion/Palpation: + abdomen tender and abdomen soft; no guarding and abdomen not rigid ostomy working well Skin: no rashes, warm and dry Results & Data Vital Signs (Past 12 Hours) Vital Signs Temp Pulse Pulse Resp BP Pulse Ox O2 Del Method 07/15/24 07:24 36.9 C 56 L 19 149/73 H 90 Room Air 07/15/24 07:00 61 07/15/24 06:34 54 L 07/15/24 06:00 54 L 07/15/24 03:29 36.9 C 65 18 154/78 H 92 Room Air 07/15/24 00:34 53 L 07/15/24 00:32 53 L 07/15/24 00:08 60 07/14/24 23:54 36.5 C 62 16 124/74 94 Room Air
--- NOTE | 2024-07-15 11:09 | Hospitalist Progress Note ---
Date of Service July 15, 2024 Assessment & Plan (1) Colonic obstruction: Plan: Repeat abdominal pelvic CT scan done on July 13 again revealed dilated colon with what appears to be total obstruction in the rectosigmoid area. Cecal diameter was 10.[address] [facility] refused to take the patient in transfer and she subsequently underwent diverting colostomy procedure here on July 13. Postoperative day #2. NG tube remains in place. She underwent 2 attempted flexible sigmoidoscopy procedures and 1 attempted colonoscopy procedure prior to operative intervention. All failed due to to very poor bowel prep. Appreciate general surgery consultation and recommendations. She remains n.p.o. with NG tube in place for now (2) CKD (chronic kidney disease) stage 3, GFR 30-59 ml/min: Plan: Mild acute on chronic kidney disease noted on admission. Creatinine slightly elevated at 1.6 on admission. Creatinine improved to 1.2 and is now 1.4 again today, July 15. Will monitor intake and output. Serial labs. (3) Lupus nephritis: Plan: Steroid-dependent. Currently on intravenous hydrocortisone. Mycophenolate is on hold (4) Hypothyroidism: Plan: Stable. Continue current thyroid replacement when taking p.o. (5) Hypertension: Plan: Currently on intravenous metoprolol scheduled dosing. Will switch to oral dosing when she is taking p.o. Valsartan/HCTZ is on hold . (6) Troponin level elevated: Plan: No evidence of acute coronary syndrome. No chest pain. (7) Hypokalemia: Plan: Corrected with parenteral replacement. Serial labs Plan To be determined. OT and PT evaluations have been requested Admission and Anticipated Discharge Date Admission Date: July 11, 2024 Subjective Alert and oriented. No distress. is at the bedside. Postoperative day #2 after creation of diverting loop colostomy on July 13. She remains n.p.o. and on IV fluids. Incentive spirometry has been ordered along with occupational therapy and physical therapy. She remains on intravenous hydrocortisone since she is steroid-dependent. This will be switched back to oral prednisone when appropriate. Review of Systems 2 Review of Systems: Constitutionalno fever or chills ENTno blurred vision, no double vision, no epistaxis, no sore throat Respiratoryno cough, no wheezing, no shortness of breath Cardiacno palpitations, no chest pain, no syncope GInausea has resolved. No vomiting. Abdominal distention has lessened. No bowel movements. No flatulence GUno urinary retention, no urinary incontinence, no dysuria, no hematuria Musculoskeletalno joint pain, no muscle tenderness Skinno bruising, no rashes, no pruritus Neurono isolated weakness, no paresthesia, no weakness Psychno depression, no anxiety Physical Exam 2 Physical Exam: General-alert and oriented x3, no fever, no chills HEENT-head atraumatic and normocephalic, pupils equal and reactive to light, extraocular muscles intact Neck-no lymphadenopathy or thyromegaly, trachea midline Chest-clear to auscultation. No rales, wheezing or rhonchi Cardiac-regular rate and rhythm, normal S1 and S2 Abdomen-less distended. Functioning colostomy now present in the upper mid abdomen. Bowel sounds are hypoactive but present. No rebound or guarding. Extremities-no cyanosis, clubbing, or edema Neuro-cranial nerves II through XII intact, motor and sensory function within normal limits, strength symmetrical, no focal deficits Psych-normal affect, normal mood Results & Data Results & Data Vital Signs (Past 12 Hours) Vital Signs Temp Pulse Pulse Resp BP Pulse Ox O2 Del Method 07/15/24 07:24 36.9 C 56 L 19 149/73 H 90 Room Air 07/15/24 07:00 61 07/15/24 06:34 54 L 07/15/24 06:00 54 L 07/15/24 03:29 36.9 C 65 18 154/78 H 92 Room Air 07/15/24 00:34 53 L 07/15/24 00:32 53 L 07/15/24 00:08 60 07/14/24 23:54 36.5 C 62 16 124/74 94 Room Air Laboratory Results 07/15/24 06:31 07/15/24 06:31 PG Care Time/CCT Total # of Minutes Spent Total Time Spent with Patient: Total time spent is greater than 50% in coordination of care (as documented) at patient's floor/unit and/or counseling patient: Coding Level of Care Code 47848 SUB INP/OBS CARE 2/35MIN Diagnoses Colonic obstruction K56.609 CKD (chronic kidney disease) stage 3, GFR 30-59 ml/min N18.30 Lupus nephritis M32.14 Hypothyroidism E03.9 Hypertension I10 Troponin level elevated R79.89 Hypokalemia E87.6
[2024-07-16 07:48] LABS: Basophils # (auto) 0.03 K/uL (0.00-0.20); Basophils % (auto) 0.3 %; Hemoglobin 9.5 g/dl (12.0-16.0); Immature Granulocytes # (auto) 0.07 K/uL (0.01-0.20); Immature Granulocytes % (auto) 0.7 %; Lymphocytes # (auto) 0.94 K/uL (1.20-3.40); Lymphocytes % (auto) 9.5 %; Mean Corpuscular Hemoglobin 30.7 pg (25.0-34.0); Mean Corpuscular Hgb Conc 30.6 g/dL (32.0-36.0); Mean Corpuscular Volume 100.3 fL (80.0-100.0); Mean Platelet Volume 11.6 fL (9.4-12.4); Monocytes # (auto) 0.51 K/uL (0.11-0.59); Monocytes % (auto) 5.1 %; Neutrophils # (auto) 8.27 K/uL (1.40-6.50); Neutrophils % (auto) 83.4 %; Platelet Count 203 K/uL (130-400); RDW Standard Deviation 51.6 fL (36.4-46.3); Red Blood Count 3.09 M/uL (4.20-5.40); White Blood Count 9.92 K/ul (4.8-10.8)
[2024-07-16 08:02] LABS: BUN Creatinine Ratio 16.7 (10-20); Calcium 7.1 mg/dl (8.6-10.3); Creatinine Clr Calc Pharmacy 42.3 ml/min; Potassium 3.2 mmol/L (3.5-5.1)
--- NOTE | 2024-07-16 11:07 | Surgery Progress Note ---
Date of Service July 16, 2024 Assessment & Plan (1) Colonic obstruction: Plan: regular diet as patient wishes transfer to tertiary center fro definitive resection of colonic stricture good progress Admission and Anticipated Discharge Date Admission Date: July 11, 2024 Subjective pain controlled ostomy working well activity improving Review of Systems Constitutional: no fever and no chills Respiratory: no cough and no dyspnea Cardiovascular: no chest pain Gastrointestinal: no abdominal pain, no nausea and no vomiting Neurologic: no localized weakness Psychiatric: no behavioral changes Physical Exam Gastrointestinal (Abdomen): Inspection/Auscultation: abdomen normal to inspection and normal bowel sounds; abdomen not distended Percussion/Palpation: abdomen soft; abdomen nontender, no guarding and abdomen not rigid Results & Data Vital Signs (Past 12 Hours) Vital Signs Temp Pulse Pulse Resp BP BP Pulse Ox 07/16/24 07:30 36.6 C 52 L 19 141/70 H 94 07/16/24 07:00 46 L 07/16/24 05:02 48 L 07/16/24 02:48 36.7 C 53 L 16 157/73 H 92 07/15/24 23:21 54 L O2 Del Method 07/16/24 07:30 Room Air 07/16/24 07:00 07/16/24 05:02 07/16/24 02:48 Room Air 07/15/24 23:21
[2024-07-16] MEDS: predniSONE 5 MG TAB PO SCH (11:32)
[2024-07-16] MEDS: POTASSIUM CHLORIDE 10 MEQ TABCR PO SCH (11:32)
[2024-07-16] MEDS: ATENOLOL 25 MG TABLET PO SCH (11:32)
--- NOTE | 2024-07-16 15:11 | Hospitalist Progress Note ---
Date of Service July 16, 2024 Assessment & Plan (1) Colonic obstruction: Plan: Repeat abdominal pelvic CT scan done on July 13 again revealed dilated colon with what appears to be total obstruction in the rectosigmoid area. Cecal diameter was 10.3 cm. [facility] refused to take the patient in transfer and she subsequently underwent diverting colostomy procedure here on July 13. Postoperative day #3. NG tube has been removed and she is now on clear liquid diet. Before surgery, she underwent 2 attempted flexible sigmoidoscopy procedures and 1 attempted colonoscopy procedure. All failed due to to very poor bowel prep. Appreciate general surgery consultation and recommendations. (2) CKD (chronic kidney disease) stage 3, GFR 30-59 ml/min: Plan: Mild acute on chronic kidney disease noted on admission. Creatinine slightly elevated at 1.6 on admission. Now resolved. Serial labs. (3) Lupus nephritis: Plan: Steroid-dependent. Treated with intravenous hydrocortisone while n.p.o. and now switched back to her usual oral prednisone dose. Mycophenolate can restart at discharge. (4) Hypothyroidism: Plan: Stable. Oral thyroid replacement therapy has been restarted. (5) Hypertension: Plan: Intravenous metoprolol has been switched back to her usual oral atenolol dosage. Valsartan/HCTZ is on hold. Will restart at discharge (6) Troponin level elevated: Plan: No evidence of acute coronary syndrome. No chest pain. (7) Hypokalemia: Plan: Oral replacement ordered. Serial labs Plan Hopefully home within the next day or 2 Admission and Anticipated Discharge Date Admission Date: July 11, 2024 Subjective Alert and oriented. Clinically she looks good. NG tube has been removed and she has been started on clear liquid diet. Postoperative day #3 after formation of diverting loop colostomy. Intravenous hydrocortisone and intravenous metoprolol have been switched back to her usual oral dose of prednisone and a atenolol. Continue ambulation. Continue OT and PT. She is having bowel movements. Hypokalemia will be treated with oral replacement. Creatinine has improved down to 1.2. Hopefully discharge to home within the next day or 2 Review of Systems 2 Review of Systems: Constitutionalno fever or chills ENTno blurred vision, no double vision, no epistaxis, no sore throat Respiratoryno cough, no wheezing, no shortness of breath Cardiacno palpitations, no chest pain, no syncope GInausea has resolved. No vomiting. Abdominal distention has lessened. No bowel movements. No flatulence GUno urinary retention, no urinary incontinence, no dysuria, no hematuria Musculoskeletalno joint pain, no muscle tenderness Skinno bruising, no rashes, no pruritus Neurono isolated weakness, no paresthesia, no weakness Psychno depression, no anxiety Physical Exam 2 Physical Exam: General-alert and oriented x3, no fever, no chills HEENT-head atraumatic and normocephalic, pupils equal and reactive to light, extraocular muscles intact Neck-no lymphadenopathy or thyromegaly, trachea midline Chest-clear to auscultation. No rales, wheezing or rhonchi Cardiac-regular rate and rhythm, normal S1 and S2 Abdomen-less distended. Functioning colostomy now present in the upper mid abdomen. Bowel sounds are hypoactive but present. No rebound or guarding. Extremities-no cyanosis, clubbing, or edema Neuro-cranial nerves II through XII intact, motor and sensory function within normal limits, strength symmetrical, no focal deficits Psych-normal affect, normal mood Results & Data Results & Data Vital Signs (Past 12 Hours) Vital Signs Temp Pulse Pulse Resp BP Pulse Ox O2 Del Method 07/16/24 11:23 36.4 C L 61 19 139/84 93 Room Air 07/16/24 07:30 36.6 C 52 L 19 141/70 H 94 Room Air 07/16/24 07:00 46 L 07/16/24 05:02 48 L Laboratory Results 07/16/24 06:54 07/16/24 06:54 PG Care Time/CCT Total # of Minutes Spent Total Time Spent with Patient: Total time spent is greater than 50% in coordination of care (as documented) at patient's floor/unit and/or counseling patient: Coding Level of Care Code 45231 SUB INP/OBS CARE 3/50MIN Diagnoses Colonic obstruction K56.609 CKD (chronic kidney disease) stage 3, GFR 30-59 ml/min N18.30 Lupus nephritis M32.14 Hypothyroidism E03.9 Hypertension I10 Troponin level elevated R79.89 Hypokalemia E87.6
[2024-07-16] MEDS: LEVOTHYROXINE SODIUM 137 MCG TABLET PO SCH (17:11)
[2024-07-17 08:06] LABS: Basophils # (auto) 0.03 K/uL (0.00-0.20); Basophils % (auto) 0.3 %; Eosinophils # (auto) 0.46 K/uL (0.00-0.50); Eosinophils % (auto) 4.9 %; Hematocrit (blood only) 32.8 % (37.0-47.0); Hemoglobin 10.2 g/dl (12.0-16.0); Immature Granulocytes # (auto) 0.04 K/uL (0.01-0.20); Immature Granulocytes % (auto) 0.4 %; Lymphocytes % (auto) 21.2 %; Mean Corpuscular Hemoglobin 30.7 pg (25.0-34.0); Mean Corpuscular Hgb Conc 31.1 g/dL (32.0-36.0); Mean Corpuscular Volume 98.8 fL (80.0-100.0); Mean Platelet Volume 11.4 fL (9.4-12.4); Monocytes # (auto) 0.81 K/uL (0.11-0.59); Monocytes % (auto) 8.6 %; Neutrophils # (auto) 6.11 K/uL (1.40-6.50); Neutrophils % (auto) 64.6 %; Platelet Count 235 K/uL (130-400); RDW Coefficient of Variation 14.2 % (11.5-14.5); RDW Standard Deviation 51.4 fL (36.4-46.3); Red Blood Count 3.32 M/uL (4.20-5.40); White Blood Count 9.45 K/ul (4.8-10.8)
[2024-07-17 08:24] LABS: BUN Creatinine Ratio 11.9 (10-20); Calcium 7.2 mg/dl (8.6-10.3); Potassium 2.8 mmol/L (3.5-5.1)
[2024-07-17] MEDS: PANTOprazole 40 MG TAB PO SCH (08:42)
[2024-07-17] MEDS ORDERED: POTASSIUM CHLORIDE / WTR 10 MEQ/100 ML PLCT IV SCH (10:30)
[2024-07-17 11:29] LABS: Magnesium 1.8 mg/dl (1.7-2.4)
[2024-07-17] MEDS: POTASSIUM CHLORIDE CRTAB 20 MEQ TABCR PO STA ×2 (11:36→19:56)
--- NOTE | 2024-07-17 16:37 | Surgery Progress Note ---
Date of Service July 17, 2024 Assessment & Plan (1) Colonic obstruction: Plan: Clinically doing well Still has only had clears. Will advance to full liquids and likely low residue tomorrow Okay from our standpoint for discharge soon. She will need to follow-up with colorectal surgery in the outpatient clinic in the near future for definitive treatment Admission and Anticipated Discharge Date Admission Date: July 11, 2024 Subjective Patient seen. Overall feeling well. No nausea or vomiting Physical Exam Physical Exam: Alert no acute distress Abdomen soft with expected postoperative tenderness. Stoma functioning Results & Data Vital Signs (Past 12 Hours) Vital Signs Temp Pulse Pulse Resp BP Pulse Ox O2 Del Method 07/17/24 15:26 36.5 C 49 L 18 159/87 H 95 Room Air 07/17/24 10:43 36.8 C 49 L 17 145/79 H 95 Room Air 07/17/24 07:00 48 L PG Care Time/CCT Total # of Minutes Spent Total Time Spent with Patient: Total time spent is greater than 50% in coordination of care (as documented) at patient's floor/unit and/or counseling patient: Coding Level of Care Code 57921 Post Operative Follow-Up Diagnoses Colonic obstruction K56.609
--- NOTE | 2024-07-17 17:31 | Hospitalist Progress Note ---
Date of Service July 17, 2024 Assessment & Plan (1) Colonic obstruction: Plan: P/w colonic obstruction not amenable to resolution with flex sig x 2 and colonoscopy due to fecal load. Repeat abdominal pelvic CT scan done on 07/13 again revealed dilated colon with what appears to be total obstruction in the rectosigmoid area. Cecal diameter was 10.[address] [facility] declined transfer and recommended diverting colostomy Had diverting colostomy performed 07/13 and now doing well, with good output in ostomy. NGT since removed and is jen clears diet, no pain. Appreciate general surgery and GI consultation and recommendations Advance diet to full liquids Dc IV Zosyn as no need for this now and no signs of infection Follow CBC, BMP, magnesium levels Needs wound care consult for ostomy teaching and supplies (2) CKD (chronic kidney disease) stage 3, GFR 30-59 ml/min: Plan: Mild acute on chronic kidney disease noted on admission. Creatinine slightly elevated at 1.6 on admission. Now resolved. Follow BMP Renally dose meds and avoid nephrotoxins Holding home ARB (3) Hypokalemia: Plan: Severe today at 2.8, likely due to poor po intake recently which is now improving replace today with 60 meq po KCl and f/u BMP, mag later this afternoon and in AM FOllow magnesium level (4) Lupus nephritis: Plan: Steroid-dependent. Treated with intravenous hydrocortisone while n.p.o. and now switched back to her usual oral prednisone dose. Mycophenolate can restart at discharge. Hold Plaquenil until wounds healed from surgery Follows with Dede at [facility]/Dr. Malik (5) Hypothyroidism: Plan: TSH here mildly elevated at 5.7 but in setting of acute illness continue home LT4 and follow as outpt (6) Hypertension: Plan: Intravenous metoprolol has been switched back to her usual oral atenolol dosage. Valsartan/HCTZ is on hold. Will restart at discharge if potassium level more acceptable Plan Hyperlipidemia-can resume home statin Vit D def/osteoporosis-holding home Ca++, Vit D, calcitriol, bisphosphonate DVT proph-add Lovenox, encouraged ambulation which she is doing Dispo-continued stay on tele for hypokalemia, possible dc to home tomorrow if tolerating reg diet I discussed her care with her at the bedsde and with Surgery Admission and Anticipated Discharge Date Admission Date: July 11, 2024 Subjective Feeling well, moving bowels into ostomy, no pain, no nausea. No CP or SOB. Is ambulating around the room. Tele with SB rates 40-50s Physical Exam Constitutional: WD/WN, vitals as above Respiratory: normal respiratory effort, lungs clear to auscultation Cardiovascular: Rate/Rhythm: regular rhythm and + bradycardic Heart Sounds: no murmur Extremities: no edema Gastrointestinal (Abdomen): Inspection/Auscultation: + abdomen abnormal to inspection (LLQ colostomy with brown liquid stool,dermabond over incisions) Psychiatric: A+Ox3, euthymic affect Results & Data Results & Data Vital Signs (Past 12 Hours) Vital Signs Temp Pulse Pulse Resp BP Pulse Ox O2 Del Method 07/17/24 15:26 36.5 C 49 L 18 159/87 H 95 Room Air 07/17/24 10:43 36.8 C 49 L 17 145/79 H 95 Room Air 07/17/24 07:00 48 L Laboratory Results CBC< BMP, magnesium reviewed PG Care Time/CCT Total # of Minutes Spent Total Time Spent with Patient: Total time spent is greater than 50% in coordination of care (as documented) at patient's floor/unit and/or counseling patient: Coding Level of Care Code 45288 SUB INP/OBS CARE 2/35MIN Diagnoses Colonic obstruction K56.609 CKD (chronic kidney disease) stage 3, GFR 30-59 ml/min N18.30 Hypokalemia E87.6 Lupus nephritis M32.14 Hypothyroidism E03.9 Hypertension I10
[2024-07-17 17:46] LABS: BUN Creatinine Ratio 11.3 (10-20); Calcium 7.7 mg/dl (8.6-10.3); Creatinine Clr Calc Pharmacy 40.6 ml/min; Magnesium 1.8 mg/dl (1.7-2.4); Potassium 3.4 mmol/L (3.5-5.1)
[2024-07-17] MEDS: ENOXAPARIN INJ 40 MG/0.4 ML SYR SQ SCH (18:30)
[2024-07-17] MEDS: CALCIUM GLUCONATE 1,000 MG/60 ML BAG IV STA (19:53)
[2024-07-17] MEDS: MAGNESIUM SULFATE / D5W 1 GM/100 ML BAG IV ONE (20:22)
[2024-07-17] MEDS: ATORVASTATIN 20 MG TAB PO SCH (20:27)
[2024-07-18 08:57] LABS: BUN Creatinine Ratio 10.7 (10-20); Calcium 7.6 mg/dl (8.6-10.3); Creatinine Clr Calc Pharmacy 44.2 ml/min; Potassium 3.4 mmol/L (3.5-5.1)
[2024-07-18 09:28] LABS: Basophils # (auto) 0.03 K/uL (0.00-0.20); Basophils % (auto) 0.4 %; Eosinophils # (auto) 0.42 K/uL (0.00-0.50); Eosinophils % (auto) 5.2 %; Hematocrit (blood only) 32.3 % (37.0-47.0); Immature Granulocytes # (auto) 0.01 K/uL (0.01-0.20); Immature Granulocytes % (auto) 0.1 %; Lymphocytes % (auto) 18.7 %; Mean Corpuscular Hemoglobin 31.5 pg (25.0-34.0); Mean Corpuscular Volume 101.9 fL (80.0-100.0); Mean Platelet Volume 11.4 fL (9.4-12.4); Monocytes % (auto) 8.7 %; Neutrophils # (auto) 5.37 K/uL (1.40-6.50); Neutrophils % (auto) 66.9 %; Platelet Count 229 K/uL (130-400); RDW Coefficient of Variation 14.1 % (11.5-14.5); RDW Standard Deviation 53.4 fL (36.4-46.3); Red Blood Count 3.17 M/uL (4.20-5.40); White Blood Count 8.03 K/ul (4.8-10.8)
--- NOTE | 2024-07-18 10:29 | Surgery Progress Note ---
Date of Service July 18, 2024 Assessment & Plan (1) Colonic obstruction: Plan: s/p transverse colon loop colostomy wbc 8, hbg 10, k 3.4, cr 1.2. vitals stable abdomen soft, non tender, + ostomy functioning w/ stool/gas in bag Tolerating full liquids, will advance to low fiber today... if tolerates well she is for d/c Wound care on board to see patient and provide ostomy teaching will need f/u with outpatient colorectal in near future for definitive treatment f/u with dr. alvarado for post op f/u as well as above. doing well. ok for d/c Admission and Anticipated Discharge Date Admission Date: July 11, 2024 Subjective Patient feeling well. No complaints of abdominal pain. Ostomy is functioning. Itchy back and feels like she has some pimple like lesions developing. Tolerating fulls, no nausea/vomiting. Physical Exam Physical Exam: awake/alert, no distress Gastrointestinal (Abdomen): Inspection/Auscultation: abdomen not distended Percussion/Palpation: abdomen soft; abdomen nontender + ostomy functioning with stool and gas in the bag Results & Data Vital Signs (Past 12 Hours) Vital Signs Temp Pulse Pulse Resp BP BP Pulse Ox 07/18/24 10:22 98.4 F 55 L 17 148/74 H 96 07/18/24 02:32 97.7 F 55 L 18 136/73 94 07/18/24 00:25 54 L 07/17/24 22:50 97.7 F 51 L 18 150/83 H 95 O2 Del Method 07/18/24 10:22 Room Air 07/18/24 02:32 Room Air 07/18/24 00:25 07/17/24 22:50 Room Air PG Care Time/CCT Total # of Minutes Spent Total Time Spent with Patient: Total time spent is greater than 50% in coordination of care (as documented) at patient's floor/unit and/or counseling patient: Coding Level of Care Code 30857 SUB INP/OBS CARE 09/09MIN Diagnoses Colonic obstruction K56.609
[2024-07-18] MEDS: POTASSIUM CHLORIDE CRTAB 20 MEQ TABCR PO STA (11:59)
--- NOTE | 2024-07-18 12:29 | Discharge Summary ---
Discharge Summary Date of Service July 18, 2024 Principal Dx & Hospital Course #1 = Principal Diagnosis (1) Colonic obstruction: P/w colonic obstruction not amenable to resolution with flex sig x 2 and colonoscopy due to fecal load. Repeat abdominal pelvic CT scan done on 07/13 again revealed dilated colon with what appears to be total obstruction in the rectosigmoid area. Cecal diameter was 10.3 cm. [facility] declined transfer and recommended diverting colostomy Had diverting colostomy performed 07/13 and now doing well, with good output in ostomy. NGT since removed and is jen low fiber diet, no pain. Appreciate general surgery and GI consultation and recommendations Received wound care consult for ostomy teaching and supplies Stable for discharge to home and needs close outpt f/u with colorectal surgery- this is being arranged by our nurse navigator (2) CKD (chronic kidney disease) stage 3, GFR 30-59 ml/min: Mild acute on chronic kidney disease noted on admission. Creatinine slightly elevated at 1.6 on admission. Now resolved. Follow BMP as noutpt Renally dose meds and avoid nephrotoxins hold home ARB/HCTZ but can resume after discharge (3) Hypokalemia: Severe at 2.8, likely due to poor po intake recently which is now improving. Improved to 3.4 on day of discharge and was given further po replacement Mag level normal Resuming home valsartan HCTZ so should have f/u BMP with PCP at follow up. Expect should normalize with eating regular meals now (4) Lupus nephritis: Steroid-dependent. Treated with intravenous hydrocortisone while n.p.o. and now switched back to her usual oral prednisone dose. Mycophenolate can restart at discharge. COntinue to hold Plaquenil until wounds healed from surgery-about 2 weeks Follows with D[facility] at [facility]/Dr. Malik (5) Hypothyroidism: TSH here mildly elevated at 5.7 but in setting of acute illness continue home LT4 and follow as outpt (6) Hypertension: BPs controlled, continue home atenolol and resume home Valsartan/HCTZ after discharge Plan Hyperlipidemia-continue home statin Vit D def/osteoporosis-resume home Ca++, Vit D, calcitriol, bisphosphonate Rash-isolated to back, not a drug rash-could be heat rash-is pruritic mildly. Follow as outpt DVT proph- Lovenox Dispo-dc to home today I discussed her care with her at the bedside and with Surgery on day of discharge Notes For Next Care Provider Check BMP in 1 week Resume Plaquenil once wounds healed Medication Changes From Visit Hold Plaquenil Admission HPI Per Admitting Provider Gillian is a 78-year-old female with past medical history of CKD 3, hypothyroidism, hypertension, lupus on long-term steroids/hydroxychloroquine presents emergency department for worsening abdominal distention and nausea/vomiting. GI was consulted on admission and on review of CT was noted to have an area of narrowing/transition point at the proximal sigmoid colon. This was also discussed with general surgery. Was recommended for endoscopic evaluation prior to surgical intervention. Gillian is seen in the endoscopy suite post flex sig. She reports that she was otherwise well until yesterday when she started to feel some distention in her abdomen and like her colon was blocked. She reports she does have a distant history of a GI blockage in the 1970s which was treated with an enema but never required surgery. Her only surgery has been tubal ligation, she denies any other history of abdominal surgeries. 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 Denies any other surgeries. She reports she has not had no fevers chills or sweats. She had her last bowel movement yesterday at 4 PM with some constipation since, did have some diarrhea earlier in June. She is still passing flatus, and did pass some gas last night She reports she feels very nauseous and has been belching and dry heaving. Denies vomiting/hematemesis. Feels her abdomen is distended but nontender to her at time of bedside assessment. She denies history of cardiac and lung disease. Does have history of CKD. Denies history of blood clots. Denies history of bleeding. Denies family history of colorectal cancer. She did have a colonoscopy in 2019 which reportedly showed diverticulosis and narrowing of the colon associated with diverticular disease. Medical History: Reviewed Medications: Reviewed Surgical History: Reviewed Family history: Reviewed Allergies: Reviewed Social History: Denies tobacco use. Evening glass of wine with dinner, none recently. Denies withdrawal sx Code Status: DNR/DNI, discussed w pt at bedside Discharge Exam Constitutional WD/WN, vitals as above Respiratory normal respiratory effort, lungs clear to auscultation Cardiovascular Rate/Rhythm: regular rhythm and + bradycardic Heart Sounds: no murmur Extremities: no edema Gastrointestinal (Abdomen) Inspection/Auscultation: + abdomen abnormal to inspection (LLQ colostomy with brown liquid stool,dermabond over incisions) Skin papular erythematous rash on back, 2-3mm papules; no rash anywhere else on body Psychiatric A+Ox3, euthymic affect Discharge Plan Discharge Items Patient Disposition: Home - Self-Care Reason For Visit: COLONIC OBSTRUCTION Discharge Diagnosis: Colonic obstruction Status post diverting colostomy Condition on Discharge: Good Activity: As commented below Non-emergency contact: Primary Care Provider and Surgeon Call non-emergency contact if: you have any medication questions, your symptoms worsen, your pain is not controlled, you have a fever, your wound has increased redness, your wound has increased drainage and your wound pain has increased Follow-up/Referrals: Efrain Mitchell MD [Physician] - Laurence Bryan MD [Primary Care Provider] - Diet: Low Fiber Addtl Attending Provider Instructions: Please continue ostomy care as instructed. You will need to follow up with the colorectal surgeon at [facility]. A referral is being made for you and you should hear back from [place] within the next week. If you have not heard anything, please contact our nurse navigator, Marylin Mendoza, at . Pending Studies at Discharge: No Stand-Alone Forms: My [facility] Medications and DC Order Prescriptions: Continued amoxicillin 500 mg capsule 2,000 mg PO ONCE Qty: 10 0RF Rx Instructions: take 1 hour prior dental appointment risedronate [Actonel] 35 mg tablet 35 mg PO .Weekly Qty: 12 0RF Patient Comments: takes on valsartan-hydrochlorothiazide 160-25 mg tablet 1 tab PO QAM Qty: 90 3RF calcitriol 0.25 mcg capsule 0.25 mcg PO .COMPLEX Qty: 36 2RF Rx Instructions: 0.25 mcg orally every wednesday, wednesday, and wednesday; mycophenolate mofetil 500 mg tablet 1,000 mg PO BID Qty: 360 5RF [facility] 1 tab PO QAM levothyroxine 137 mcg tablet 137 mcg PO DAILY Qty: 90 3RF atorvastatin 20 mg tablet 20 mg PO QPM Qty: 90 3RF atenolol 25 mg tablet 25 mg PO QAM Qty: 90 3RF prednisone 5 mg tablet 5 mg PO QAM cholecalciferol (vitamin D3) [Vitamin D3] 25 mcg (1,000 unit) Tablet 1,000 unit PO QAM calcium carb, citrate-vit D3 [Citracal-D3 Slow Release] 600 mg calcium- 500 unit Tablet Extended Release 1 tab PO QAM Held hydroxychloroquine 200 mg tablet 200 mg PO QAM Qty: 90 3RF Hold Instructions: Resume on 08/01/24. Hold until your surgical wounds have healed Discharge Orders: Discharge Order (Routine); Ordered 07/18/24 Ordered By: Jordyn Melgoza Admission Data Admit Date/Time: 07/11/24 16:09 Attending Provider: Jordyn Melgoza Admit Provider: Anirudh Kruger Primary Care Provider: Laurence Bryan Other Providers: Heri Bermudez; Efrain Mitchell; Anirudh Kruger Other Interventions: Discharge Summary Assessment (RN) Last Done: 07/12/24 10:28 Hospital Stay Data Consultations 07/11/24 14:03 Consult Gastroenterology Stat Consult General Surgery Stat 07/11/24 17:22 ED Decision to Admit Stat Procedures Performed Operation Date: 07/13/24 17:00 Actual Procedures p Laparoscopic Loop Colostomy(Not Applicable) - Efrain Mitchell MD Diagnostic Imagining Performed 07/11/24 09:04 CT abd pelvis oral con only Stat 07/13/24 11:37 CT Abd and Pelvis [CT abd pelvis wo con] Urgent Pending Results Patient Have Any Pending Studies at Discharge: No Discharge Instructions Given to Patient (Per Discharging Provider) Please continue ostomy care as instructed. You will need to follow up with the colorectal surgeon at [facility]. A referral is being made for you and you should hear back from [place] within the next week. If you have not heard anything, please contact our nurse navigator, Marylin Mendoza, at [phone]. Total Time Total Time Spent Total Time Spent (In Minutes): 35 min Coding Level of Care Code 92255 INP/OBS DISCH >30 MIN Diagnoses Colonic obstruction K56.609 CKD (chronic kidney disease) stage 3, GFR 30-59 ml/min N18.30 Hypokalemia E87.6 Lupus nephritis M32.14 Hypothyroidism E03.9 Hypertension I10
[2024-07-18 15:17] VITALS: RESP 18; TEMP 97.9; O2SAT 93
[2024-07-18 16:21] VITALS: BP 136/73; PULSE 54
== END 2024-07-18 16:47 | disposition home health service (06) | DRG 330 ==
LOC: ED 08:15 → 2S 16:09 → SUATTDRO 16:09 → 2S 17:52